=== PATIENT | female | born 1995 | race Caucasian/White ===

== ENCOUNTER → 2017-11-11 19:35 | Outpatient (CLI) | payer MEDICAID, SELFPAY ==
[2017-11-11 21:46] LABS: Chlamydia Trachomatis by PCR Negative (Negative); Neisserai gonorrhoeae by PCR Negative (Negative); Probe Check PASS; Sample Adequacy Control PASS; Specimen Processing Control PASS
== END ==
PROVIDERS: Family Provider Family Medicine; PCP Family Medicine; Visit Provider Nurse Practitioner Women's Health
DX: N89.8 Other specified noninflammatory disorders of vagina (principal)
CPT/HCPCS: 87070; 87205; 87491; 87591

== ENCOUNTER → 2017-12-15 17:39 | Outpatient (CLI) | payer MEDICAID, SELFPAY ==
[2017-12-15 19:18] LABS: Group B Strep DNA By PCR Negative (Negative); Internal Control PASS; Probe Check PASS; Specimen Processing Control PASS
== END ==
PROVIDERS: Family Provider Family Medicine; PCP Family Medicine; Visit Provider Nurse Practitioner Women's Health
DX: Z34.90 Encounter for supervision of normal pregnancy, unspecified, unspecified trimester (principal); N89.8 Other specified noninflammatory disorders of vagina
CPT/HCPCS: 87070; 87081; 87205; 87653

== ENCOUNTER 2017-12-23 18:50 | Outpatient (CLI) | payer MEDICAID, SELFPAY ==
[2017-12-23 19:49] VITALS: BMI 35.5
--- NOTE | 2017-12-26 13:58 | OB.TRI.NOTE ---
History of Present Illness Date of Service: 12/23/17 Was patient seen by the physician?: No Reason For Visit: R/O LABOR Date of Service: 12/23/17 Final MYRNA: 01/09/18 Gestational age: 38 Weeks and 0 Days History of Present Illness: contractions and pelvic pressure Home Medications Medication Instructions Recorded 1 tab PO QDAY 09/01/17 vitamin,calcium,advoibig-grbc-qsfde acid tablet famotidine 20 mg tablet 20 mg PO QDAY 10/07/17 Allergies Sulfa (Sulfonamide Antibiotics) Allergy (Verified 12/23/17 19:51) Hives NST - FHR Rate Baby A Baseline: 140 Variability:: Moderate Accelerations:: 15 x 15 Decelerations:: None NST Reactive:: Yes FHR Category:: Category I Uterine Activity:: q 3-5 Impression/Plan false labor reactive NST dc home labor precautions
== END 2017-12-23 21:00 | disposition home or self-care (01) ==
LOC: WPOUT 19:23 → WP 12-24 09:45
PROVIDERS: Family Provider Family Medicine; PCP Family Medicine; Visit Provider Obstetrics & Gynecology
DX: O47.1 False labor at or after 37 completed weeks of gestation (principal); Z3A.38 38 weeks gestation of pregnancy
CPT/HCPCS: 59025; 59050; 99218; G0378

== ENCOUNTER 2018-01-08 07:00 | Inpatient (IN) | payer MEDICAID, SELFPAY ==
[2018-01-08 07:27] VITALS: BMI 35.2
[2018-01-08] MEDS: Lactated Ringers 1,000 ML 50 ML IV ×3 (07:40→14:43)
[2018-01-08] MEDS: Oxytocin 30 units/NS 500 ml 30 UNITS/500 ML IV.SOLN IV (08:01)
[2018-01-08 08:37] LABS: Hematocrit 38.7 % (37-47); Mean Corp Hgb Conc 33.6 g/gl (32-36); Mean Corpuscular Hgb 30.2 pg (27.0-32.0); Platelet Count 219 K/mm3 (150-450); RBC Distribution Width SD 42.4 fl (35.1-43.9); Scan Indicated on CBC? Y/N NO; White Blood Count 10.3 K/mm3 (4.4-11.0)
[2018-01-08] MEDS: Ondansetron 4 MG/2 ML Vial IV (08:42)
--- NOTE | 2018-01-08 09:39 | NURSING ---
Patient plans to exclusively pump and feed baby breast milk through bottle.
[2018-01-08] MEDS: fentaNYL-bupivacaine (epidural) 100 ML BAG EPIDURAL ×2 (11:49→15:58)
[2018-01-08] MEDS: proMETHazine 25 MG/ML Syringe IV (14:43)
[2018-01-08] MEDS: Oxytocin 30 units/NS 500 ml 30 UNITS/500 ML IV.SOLN 334 UNITS IV (17:00)
--- NOTE | 2018-01-08 17:20 | HP.PCM_ITS ---
- Problem List (1) Supervision of normal Status: Acute Qualifiers: Comment: PRR MYRNA 01/09/18 boy LOUANN Seay kaden History Date of Admission: 01/08/18 Final MYRNA: 01/09/18 Gestational age: 39 Weeks and 6 Days History of this : 22 yo @ 39w6d presents for IOL maternal discomfort Pertinent Past Medical History: Past Medical History (Last Reviewed 01/04/18 @ 15:56 by Calli Ash) Anxiety (Acute) Depression (Acute) Mom's Labs & Results 01/08/18 01/08/18 07:45 07:45 WBC 10.3 RBC 4.30 Hgb 13.0 Hct 38.7 MCV 90.0 MCH 30.2 MCHC 33.6 RDW 13.0 RDW Differential 42.4 Plt Count 219 MPV 11.0 Blood Type B POSITIVE Antibody Screen NEGATIVE Course Did the patient receive Yes care? Labs Blood Type: B RH: POSITIVE RPR/VDRL/Syphilis Nonreactive Rubella status Immune HbSAg Negative Date Done: 08/03/17 Chlamydia Negative Gonorrhea Negative HIV/AIDS Non-Reactive Group B Strep: Negative Current Obstetrical History Gestational Diabetes Yes Incompetent Cervix No Infertility No IUGR No Macrosomia No Hypertension/Pre-eclampsia No Placenta Previa/Abruption No PTL/PROM No Uterine anomaly No Oligohydramnios No Polyhydramnios No Multiple gestation No Past Medical History Asthma No Diabetes No Hypertension No Heart disease No Mitral valve prolapse No Neurologic/Seizure disorder/ No Migraines Kidney disease No Liver disease No Varicosities No Clotting disorders/Hx of DVT No Thyroid Dysfunction No Other medical diseases No Psychiatric disorders Yes: anxiety, depression Major trauma No Abnormal PAP smear No Sleep apnea No Mammogram in the last 2 years No Social History Marital Status: SINGLE Alleged father Apolinar Hx Smoking Yes Smoking Status Light Smoker (<10/day) All Active Problems (Last Reviewed 01/04/18 @ 15:56 by Calli Ash) Supervision of normal (Acute) Allergies Sulfa (Sulfonamide Antibiotics) Allergy (Intermediate, Verified 01/08/18 08:10) Hives Current Medications Acetaminophen (Tylenol) 325 - 650 mg PO Q4H PRN PRN PRN Reason: PAIN OR FEVER >100.4F Al Hydroxide/Mg Hydroxide (Mylanta Ii) 15 - 30 ml PO Q4H PRN PRN PRN Reason: INDIGESTION Citric Acid/Sodium Citrate (Bicitra) 30 ml PO UD PRN Oxytocin/Sodium Chloride () 30 units in 500 mls @ 1 mls/hr IV .Q500H [facility] Last Admin: 01/08/18 08:01 Dose: 1 mls/hr Lactated Ringer's () 1,000 mls @ 50 mls/hr IV .Q20H [facility] Last Admin: 01/08/18 14:43 Dose: 50 mls/hr Naloxone HCl 4 mg/ Dextrose 504 mls @ 0 mls/hr IV PRN PRN; Protocol PRN Reason: TO MAINTAIN RR>10 Nalbuphine HCl (Nubain) 5 - 10 mg IV Q3H PRN PRN PRN Reason: PAIN (4-10/10) Nalbuphine HCl (Nubain) 5 mg IV Q3H PRN PRN Reason: ITCHING Stop: 01/09/18 12:05 Naloxone HCl (Narcan) 0.2 mg IV Q1M PRN PRN Reason: RR<10 AND PT UNRESPONSIVE Stop: 01/09/18 12:05 Ondansetron HCl (Zofran) 4 mg IV Q8H PRN PRN PRN Reason: NAUSEA Last Admin: 01/08/18 08:42 Dose: 4 mg Promethazine HCl (Phenergan) 6.25 - 12.5 mg IV Q4H PRN PRN; Protocol PRN Reason: IF NAUSEA PERSISTS Last Admin: 01/08/18 14:43 Dose: 6.25 mg Sodium Chloride () 5 - 15 ml IV UD [facility] Last Admin: 01/08/18 10:18 Dose: Not Given Smoking Status: Never smoker Alcohol: None Drug Use: none Number of Fetus(es): 1 - 120 moderate variabiity reactive no decels Review of Systems Constitutional: Denies: Chills, Fever, Weight Change HEENT: Denies: Head Aches, Sinus Congestion, Sinus Drainage Cardiovascular: Denies: Chest Pain, Palpitations Respiratory: Denies: Cough, Shortness of breath at rest, Sputum production Gastrointestinal: Denies: Abdominal Pain, Nausea, Vomiting Genitourinary: Denies: Dysuria Musculoskeletal: Denies: Joint Pain, Joint Tenderness Skin: Denies: Rash, Wounds Neurological: Denies: Numbness, Tingling, Focal weakness Psychiatric: Denies: Anxiety, Depression, Homicidal Ideations, Suicidal Ideations Hematologic/ Lymphatic: Denies: Easy Bruising, Easy Bleeding Physical Exam General: Alert Cardiovascular: Regular rate Lungs: Normal air movement Abdomen: Soft, Non Tender, Gravid Extremities:: No edema Estimated gestational size: Appropriate for gestational size Presentation: Cephalic Cervix Dilation (cm): 3 Assessment/Plan 22 yo @ 39w6d presents IOL maternal discomfort pitocin IOL. epidural.
[2018-01-08] MEDS: Oxytocin 30 units/NS 500 ml 30 UNITS/500 ML IV.SOLN 167 UNITS IV (17:30)
[2018-01-08 20:43] VITALS: BP 124/60; PULSE 99; RESP 16; TEMP 36.8; O2SAT 97
[2018-01-08] MEDS: Naproxen 250 MG Tablet PO (21:29)
--- NOTE | 2018-01-08 21:39 | NURSING ---
epidural cath d/c with blue tip intact. pt tolerated well
--- NOTE | 2018-01-08 22:45 | PCM.OB.VAG ---
- Problem List (1) Supervision of normal Status: Acute Qualifiers: Comment: PRR MYRNA 01/09/18 boy LOUANN Seay kaden Vaginal Delivery Maternal Presentation: Elective Induction 22 yo @ 39w6d presents IOL maternal discomfort Amniotic Membrane Rupture Type: Artificial Amniotic Fluid Description: Clear Final MYRNA: 01/09/18 Gestational age: 39 Weeks and 6 Days Date of Procedure: 01/08/18 Pre-Operative Diagnosis: iol Post-Operative Diagnosis: same Surgery/ Procedure Performed: Spontaneous Vaginal Delivery Type of Anesthesia: Epidural Description of Procedure: Patient began pushing and delivered the head in the SIXTO presentation. The head was delivered atraumatically. The anterior and posterior shoulders delivered without complication followed by the rest of the and the infant was placed on the maternal abdomen. Delayed cord clamping was employed for approximately 60 seconds. Cord was clamped and cut and gentle traction was applied to the cord and the placenta delivered spontaneously immediately following it was noted to be intact with three-vessel cord. The perineum and vagina were inspected and noted to have a small first degree laceration and repaired in the usual fashion with 3-0 vicryl rapide. EBL was 300 cc. Patient and infant tolerated delivery well. Presentation: SIXTO Placenta Disposition: [facility]
[2018-01-08 23:37] VITALS: BP 99/47; PULSE 72; RESP 16; TEMP 37.3; O2SAT 99
[2018-01-08] MEDS: Acetaminophen 500 MG Tablet 1000 MG PO (23:44)
[2018-01-08] MEDS: Cephalexin 500 MG Capsule PO (23:44)
[2018-01-09 04:42] VITALS: BP 122/75; PULSE 75; RESP 16; TEMP 36.7; O2SAT 98
[2018-01-09] MEDS: Cephalexin 500 MG Capsule PO ×3 (05:56→17:54)
[2018-01-09] MEDS: oxyCODONE 5 MG Tablet PO ×2 (05:57→17:54)
--- NOTE | 2018-01-09 06:07 | NURSING ---
As RN entered room mother resting in bed with baby resting on bed between her legs. mother gazing at baby and was tearful, fob sleeping on couch. RN provided emotional support to pt. medicated for uterine cramping and back pain. ice water refreshed, orange juice and snacks provided. pt denies needs at this time and stated she felt as she was tearful due to being uncomfortable. will continue to monitor
[2018-01-09 08:05] VITALS: BP 100/49; PULSE 83; RESP 18; TEMP 36.6; O2SAT 95
[2018-01-09] MEDS: Naproxen 250 MG Tablet PO (10:35)
[2018-01-09 13:00] VITALS: BP 119/64; PULSE 65; RESP 18; TEMP 36.6; O2SAT 100
[2018-01-09] MEDS: Senna/Docusate Sodium 1 Tablet PO (13:06)
--- NOTE | 2018-01-09 13:47 | PN.OBGYN_ITS ---
Subjective: doing well no complaints - Physical Exam General: Alert, Oriented x3 Vital Signs Temp Pulse Resp BP Pulse Ox 97.8 F 65 18 119/64 100 01/09/18 13:00 01/09/18 13:00 01/09/18 13:00 01/09/18 13:00 01/09/18 13:00 Oxygen Delivery Method Room Air Weight: 218 lb Body Mass Index (BMI) 35.2 Intake and Output for Last 24 Hours 01/07/18 01/08/18 01/09/18 23:59 23:59 23:59 Intake Total 3070 / 3070 Output Total 1102 / 1102 600 / 600 Balance 1967 / 1967 -600 / -600 Medical Necessity - Tobacco Use Smoking Status: Never smoker Assessment/Plan s/p routine care [facility]
--- NOTE | 2018-01-09 13:48 | DCINST_ITS ---
Discharge Diet: No Restrictions Discharge Activity: Return to Normal Activity, May not drive while taking narcotic pain medications., May Shower May resume sexual activity in: 4-6 weeks Call your doctor if your incision/area has: Continuous Slow Oozing, Sudden Increased Bleeding, Increased Pain/ Swelling, Increased Redness, Foul Smelling Discharge Additional Instructions: If you experience any of the following, contact your healthcare provider. * Bleeding that soaks a pad every hour for 2 hours * Fever 100.4 or higher * Unrelieved incision or abdominal pain * Swelling, redness, discharge or bleeding from your incision or episiotomy site * Your incision begins to separate * Problems urinating (including inability to urinate or burning while urinating) . * Visual changes * Severe headache * Flu-like symptoms * Pain or redness in one of both of your breasts * Pain, warmth, tenderness or swelling in your legs, especially the calf area * Frequent nausea and vomiting * Symptoms of depression or anxiety If you experience any of the following, call 911 or go to the nearest Emergency Room. * Chest pain * Problems breathing * Seizure activity * Partial or complete paralysis of a body part, slurred speech, weakness or drooping of the face, or a sudden inability to walk or hold your balance Allergies/Adverse Reactions: Allergies Sulfa (Sulfonamide Antibiotics) Allergy (Intermediate, Verified 01/08/18 08:10) Hives Medications to take at Discharge vitamin,calcium,dkijyxpz-jprk-krxph acid tablet 1 tab PO QDAY 09/01/17 famotidine 20 mg tablet 20 mg PO QDAY 10/07/17 cephalexin 500 mg capsule 500 mg PO .4 times per day cap 01/04/18 Naproxen [Naprosyn] 250 - 500 mg PO Q8H PRN PRN #30 tab 01/09/18 Oxycodone HCl/Acetaminophen [Percocet 5-325] 1 - 2 tablet PO Q4H PRN PRN 3 Days #15 tablet 01/09/18 The following prescriptions were given: Oxycodone HCl/Acetaminophen [Percocet 5-325] 1 - 2 tablet PO Q4H PRN PRN 3 Days #15 tablet PRN Reason: Pain Naproxen [Naprosyn] 250 - 500 mg PO Q8H PRN PRN #30 tab PRN Reason: MILD PAIN Please Follow Up With: Jessica Chen MD - [phone] When: Call to make an appointment with your doctor in 6 weeks. If you had elevated Blood pressure or 4th degree laceration you will need to be seen in 2 weeks. Primary Care Physician: Александр Cornejo III, MD [Primary Care Provider] -
--- NOTE | 2018-01-09 15:45 | CASEMGMT ---
Social Work - Labor and Delivery Unit Assessment completed. Refer to documentation below for further details. Date of Referral: 01/08/2018 Time of Referral: 1428 Referred By: Dr. Bellamy Reason for Referral: Mental Health: history of depression, depression, anxiety Date of Intervention: 01/09/2018 Time of Intervention: 1545 History obtained from: Mother of baby (MOB) Karlos Joe and medical record Household composition: MOB, reported father of baby (FOB) Apolinar Hair, and MOBs oldest child Ada Joe. MOB reports home situation is safe and adequate. Patient's parent/guardian status: MOB reports she and FOB have been together for 5 years, are currently engaged. MOB denies any form of abuse in relationship with FOB. , Daniel Hair, is the first child for MOB and FOB together. MOBs first child, Ada, as different father who has no involvement with Ada. FOB has one other child, 6 years old, whom FOB has no regular contact with. Medical History: MBO is G2, P1 to 2 after delivering Daniel. care reported to be adequate. Daniel was born weighing 9 pounds, at . Apgars 8 and 9 at 1 and 5 minutes of life. 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 MOB reports able to read and write, and to be able to understand what is read. 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 MOB will be taking a maternity leave, and unsure if will return to this job or find another job. FOB works at [employer]. Infant Supplies: MOB reports to have needed supplies including bassinet, car seat, clothing, diapers, wipes, breast pump, and crib. Childcare/Caregiver(s): MOB will be primary caregiver and will look for childcare when ready to return to work. Transportation: No reported issues. Programs/Agencies Involved: MOB reports to have food and medical through [facility]. Plans to enroll in childcare center administrator subsidy through [employer] when MOB returns to work. MOB reports to have WIC. Children Services/Legal Issues: MOB denies legal issues, and denies past or present involvement with children services. Behavioral Health Issues: MOB reports history of depression, anxiety, and depression. MOB denies any thoughts, plans, or intent for suicide. MOB reports does have a medication to use as needed for anxiety, and plans to remain on this in the period. MOB reports tried an antidepressant after Ada was born as well as tried counseling. MOB reports being with her dog, and smoking cigarettes helps MOB manage emotions and stress levels. MOB denies any illicit drug use history. MOB does smoke tobacco. No reports of any alcohol use during , or any dependence issues outside of . Family/Social Stressors: MOB reports some stress in that would not be engaged to FOB unless MOB gave FOB an ultimatum. MOB reports FOB is content with remaining together without getting , though this is something that MOB desires. MOB reports FOB has been more helpful with Miles as compared to after of Ada. MOB reports this is a positive. Support Systems: MOB reports FOB took a week off of work to help MOB with transition home with baby. MOB reports MOBs mother is 10 minutes away and able to help as needed. MOB reports FOB is the primary person MOB seeks emotional support from. Depression/Shaken Baby/Safe Sleeping: MOB reports was planned, and that MOB does feel a connection to this baby. MOB does admit that worries about transition home and adjusting to 2 children, worries about getting overwhelmed. MOB reports will ask for help however, and reports to have people can ask for help from. MOB able to give appropriate response on shaken baby and prevention of such. MOB able to give appropriate response on safe sleeping. ASSESSMENT: MOB cooperative, pleasant, and seeming non-defensive during social work visit. MOB held good eye contact, teary eyed at times. MOB was attentive to for the entirety of social work visit, was gentle and appropriate with baby, smiled at baby and looked at baby. MOB reports mood on a scale of 1-10 with 1 being the saddest and 10 the happiest, as a 7. MOB reports Anxiety is a 5 at this point. MOB listened to social work education on mood and anxiety disorders, risk factors present, and importance of seeking out help and support if symptoms increase or if MOB needs a break. MOB reports to feel ready to return home to get into a routine, see older child and also the family dog. MOB reports to have needed baby supplies, and that FOB has been helpful with the baby while in the hospital, as well as will be home for a week while MOB adjusts to having a . PLAN: MOB and infant to home. MOB provided with [facility] Resources assisting new parents, including counseling options, moms support group and Help Me Grow. depression packet given which includes tips on self-care, parenting with depression, and online supports. MOB accepted all resources given. No other services requested or indicated. -SHELTON Ryan, ROOF SERVICE TECHNICIAN
[2018-01-09 17:00] VITALS: BP 129/75; PULSE 85; RESP 18; TEMP 36.4; O2SAT 100
== END 2018-01-09 19:15 | disposition home or self-care (01) | DRG 373 ==
PROVIDERS: Admitting Provider Obstetrics & Gynecology; Family Provider Family Medicine; PCP Family Medicine; Visit Provider Obstetrics & Gynecology
DX: O70.0 First degree perineal laceration during delivery (principal); O99.334 Smoking (tobacco) complicating childbirth; O75.89 Other specified complications of labor and delivery; Z3A.39 39 weeks gestation of pregnancy; Z37.0 Single live birth
CPT/HCPCS: 59050; 85027; 86850; 86900; 99218; J7120; G0378; J2405

== ENCOUNTER → 2018-02-23 07:09 | Outpatient (CLI) | payer MEDICAID, SELFPAY ==
[2018-03-11 13:27] LABS: HPV Reflexed? NOT INDICATED
== END ==
PROVIDERS: Family Provider Family Medicine; PCP Family Medicine; Visit Provider Obstetrics & Gynecology
DX: Z12.4 Encounter for screening for malignant neoplasm of cervix (principal)
CPT/HCPCS: 88175; G0145

== ENCOUNTER 2018-06-01 14:01 | Emergency (ER) | payer MEDICAID, SELFPAY ==
[2018-06-01 14:02] VITALS: BP 113/78; PULSE 116; RESP 18; TEMP 36.6; O2SAT 98; BMI 30.7
[2018-06-01] MEDS: 0.9% Normal Saline 1,000 ML 999 ML IV (16:25)
[2018-06-01] MEDS: Metoclopramide 10 MG/2 ML Vial IV (16:25)
[2018-06-01] MEDS: Ketorolac 30 MG/ML Syringe IV (16:25)
[2018-06-01] MEDS: DiphenhydrAMINE 50 MG/ML Syringe 12.5 MG IV (16:25)
--- NOTE | 2018-06-01 17:14 | ED.VISSUMM ---
- ER Visit Summary Date of Service: 06/01/18 Chief Complaint: Earache, headache History of Present Illness: The patient is a 23 F with onset of migraine yesterday around 3 PM in the afternoon. She had 2 prior episodes of migraines. Pain is primarily to the right jewish area. She has mild nausea and light sensitivity. She did leave work early last night secondary to symptoms. She does complain of bilateral ear pain. She had mild URI symptoms. There has been no significant recent head trauma. Physical Examination: Vital signs significant for heart rate of 116, otherwise unremarkable. Patient is initially sitting in the carroll chair with sunglasses on. She is moved to a darkened room. Head neck examination is grossly unremarkable. TMs are clear bilaterally. She has no meningismus. Heart is regular rate and rhythm. Lung sounds are clear. Abdomen is soft nontender. Neuro exam is normal. Test Results: [] Emergency Department Course and Treatment: Patient was given IV fluids, Toradol, Reglan, Benadryl. On repeat examination symptoms are improved. She be given a work note for tonight. Treatment Plan: [] Disposition: Discharge Impression: Migraine, improved This note was generated with [employer] dictation software. It may contain incorrect words, spelling, and punctuation that were not noted in review of the chart prior to signing ED Disposition - Plan for ED Patient: Chief Complaint: Ear Problem Referrals: Александр Cornejo III, MD [Primary Care Provider] -
--- NOTE | 2018-06-01 17:17 | ED.DCSUM_ITS ---
- ER Visit Summary Date of Service: 06/01/18 Chief Complaint: Earache, headache History of Present Illness: The patient is a 23 F with onset of migraine yesterday around 3 PM in the afternoon. She had 2 prior episodes of migraines. Pain is primarily to the right tenriism area. She has mild nausea and light sensitivity. She did leave work early last night secondary to symptoms. She does complain of bilateral ear pain. She had mild URI symptoms. There has been no significant recent head trauma. Physical Examination: Vital signs significant for heart rate of 116, otherwise unremarkable. Patient is initially sitting in the carroll chair with sunglasses on. She is moved to a darkened room. Head neck examination is grossly unremarkable. TMs are clear bilaterally. She has no meningismus. Heart is regular rate and rhythm. Lung sounds are clear. Abdomen is soft nontender. Neuro exam is normal. Test Results: [] Emergency Department Course and Treatment: Patient was given IV fluids, Toradol , Reglan, Benadryl. On repeat examination symptoms are improved. She be given a work note for tonight. Treatment Plan: [] Disposition: Discharge Impression: Migraine, improved This note was generated with [employer] dictation software. It may contain incorrect words, spelling, and punctuation that were not noted in review of the chart prior to signing ED Disposition - Plan for ED Patient: Chief Complaint: Ear Problem Referrals: Александр Cornejo III, MD [Primary Care Provider] -
--- NOTE | 2018-06-01 17:17 | ED.DEP ---
ED Disposition - Plan for ED Patient: Disposition: Home or Assisted Living Chief Complaint: Ear Problem Instructions: ED Headache Migraine Referrals: Александр Cornejo III, MD [Primary Care Provider] - 1 Week
[2018-06-01 17:24] VITALS: BP 108/69; PULSE 76; RESP 14; O2SAT 99
== END 2018-06-01 17:27 | disposition home or self-care (01) ==
PROVIDERS: Emergency Provider Emergency Medicine; Family Provider Family Medicine; PCP Family Medicine
DX: G43.909 Migraine, unspecified, not intractable, without status migrainosus (principal)
CPT/HCPCS: 99283; J7030; A4216

== ENCOUNTER 2019-01-21 09:30 | Emergency (ER) | payer OTHER, MEDICAID, SELFPAY ==
[2018-10-19 12:02] VITALS: BMI 35.2
[2019-01-21 09:31] VITALS: BP 122/77; PULSE 126; RESP 14; TEMP 36.4; O2SAT 96; BMI 32.5
--- NOTE | 2019-01-21 09:55 | ED.VISSUMM ---
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 She felt a sudden pulling sensation in her low back when she did this. Pain does not radiate to her legs. She has no paresthesias or weakness. She does report having physical therapy previously for cervical and thoracic strains, but no prior problems with her lumbar area. Physical Examination: Vital signs significant for heart rate of 126, otherwise unremarkable. Patient sitting on the side of the bed. She appears uncomfortable but in no distress. Head neck examination is normal. Heart is regular rhythm but tachycardic. Lung sounds clear. Abdomen is soft nontender. Back examination reveals mild midline tenderness in the lumbar area. No midline tenderness in the thoracic spine. She does have moderate tenderness in the bilateral lumbar paraspinals. Straight leg raise in the seated position is negative. Neuro exam reveals normal strength and sensation in the lower extremities with strong distal pulses. She has 2+ bilateral patellar reflexes. Test Results: [] Emergency Department Course and Treatment: Patient be given a dose of naproxen here. She is driving herself home. She will be given prescription for naproxen, Flexeril, and 6 tabs of [place] for breakthrough pain. She is given work restrictions for the weekend. Treatment Plan: [] Disposition: Discharge Impression: Acute lumbar strain with paraspinal spasm This note was generated with [employer] dictation software. It may contain incorrect words, spelling, and punctuation that were not noted in review of the chart prior to signing ED Disposition - Plan for ED Patient: Disposition: Home or Assisted Living Instructions: ED Sprain Strain Lumbar Prescriptions: Hydrocodone Bitart/Apap 5-325 [[place] 5MG-325MG] 1 tablet PO Q6H PRN PRN 3 Days #6 tablet PRN Reason: Pain Naproxen [Naprosyn] 500 mg PO BID PRN PRN #20 tablet PRN Reason: Pain Cyclobenzaprine [Flexeril] 10 mg PO TID PRN #20 tablet PRN Reason: Muscle Spasm Referrals: [facility] [GROUP OF PHYSICIANS] - 2 Days
[2019-01-21] MEDS: Naproxen 500 MG Tablet PO (10:40)
== END 2019-01-21 10:46 | disposition home or self-care (01) ==
LOC: ED 10:11
PROVIDERS: Emergency Provider Emergency Medicine; Family Provider Family Medicine; PCP Family Medicine
DX: S39.012A Strain of muscle, fascia and tendon of lower back, initial encounter (principal); X50.9XXA Other and unspecified overexertion or strenuous movements or postures, initial encounter; Y93.H3 Activity, building and construction; Y92.230 Patient room in hospital as the place of occurrence of the external cause; Y99.0 Civilian activity done for income or pay; M62.830 Muscle spasm of back; K21.9 Gastro-esophageal reflux disease without esophagitis; Z72.0 Tobacco use
CPT/HCPCS: 99283

== ENCOUNTER → 2019-01-31 08:43 | Outpatient (CLI) | payer OTHER, SELFPAY ==
[2019-01-31 08:43] VITALS: BMI 32.5
--- NOTE | 2019-01-31 08:47 | RAD_ITS ---
STUDY: X-RAY - LUMBAR SPINE REASON FOR EXAM: Female, 24 years old. Back pain. TECHNIQUE: 3 view(s) of the lumbar spine were obtained. COMPARISON: None FINDINGS: Normal lumbar lordosis. There is no substantial scoliosis. There is a normal alignment of the vertebrae. Minimal spondylosis involves L4. There is minimal, sclerotic marginated anterior wedging of L2. The sclerotic margination suggests nonacute process. Alternatively this may represent an anatomic variant. Normal disc space heights. The posterior lungs within the field of view appear unremarkable. The bowel gas pattern is nonspecific. There is no evident gross free air. RAD/Lumbar Spine 2 or 3 Views IMPRESSION: No plain film evident acute osseous abnormality. Minimal, single level spondylosis. L2 vertebral body findings as above. Please see discussion. Recommendation: If there is a radiculopathy referable to the lumbar spine, consider evaluation with MRI. Electronically Signed: Zafar Story MD at 9:40 EDT , Service support ,
== END ==
PROVIDERS: Family Provider Family Medicine; PCP Family Medicine; Referring Provider Physician Assistant; Visit Provider Physician Assistant
DX: S39.012A Strain of muscle, fascia and tendon of lower back, initial encounter (principal); M62.830 Muscle spasm of back
CPT/HCPCS: 72100

== ENCOUNTER → 2019-02-24 16:55 | Outpatient (CLI) | payer OTHER, SELFPAY ==
[2019-02-14 08:34] VITALS: BMI 32.5
--- NOTE | 2019-02-24 17:06 | MRI_ITS ---
STUDY: MRI LUMBAR SPINE WITHOUT CONTRAST REASON FOR EXAM: Female, 24 years old. Low back pain after moving a bed 6 weeks ago TECHNIQUE: Standardized fat and water weighted pulse sequences were obtained in the sagittal and axial planes. COMPARISON: Radiographs 01/31/2019 FINDINGS: T12-L1: Normal endplates. Normal disc height, hydration and morphology. Normal bilateral facet joints. Normal central canal and bilateral lateral recesses. Normal bilateral intervertebral neural foramina. Normal lumbar lordosis. There is no substantial scoliosis. Normal conus medullaris that terminates at the L1 level. L1-2: Normal endplates. Normal disc height, hydration and morphology. Normal bilateral facet joints. Normal central canal and bilateral lateral recesses. Normal bilateral intervertebral neural foramina. L2-3: Normal endplates. Normal disc height, hydration and morphology. Normal bilateral facet joints. Normal central canal and bilateral lateral recesses. Normal bilateral intervertebral neural foramina. L3-4: Normal endplates. Normal disc height, hydration and morphology. Normal bilateral facet joints. Normal central canal and bilateral lateral recesses. Normal bilateral intervertebral neural foramina. L4-5: Normal endplates. Normal disc height, hydration and morphology. Normal bilateral facet joints. Normal central canal and bilateral lateral recesses. Normal bilateral intervertebral neural foramina. L5-S1: Disc desiccation. Central annular fissure with minimal central canal stenosis. Normal visualized sacral ala. Normal visualized paraspinous soft tissue structures. Incompletely imaged right ovary cyst measuring 3.8 x 3.0 cm. MRI/Spine Lumbar (Routine) IMPRESSION: Central annular fissure at the L5-S1 level with minimal central canal stenosis. No evidence of nerve root impingement. Incompletely imaged right ovary cyst measuring 3.8 x 3.0 cm. Electronically Signed: Eusebio Schwab MD at 18:33 EDT Tel , Service support ,
== END ==
PROVIDERS: Family Provider Family Medicine; PCP Family Medicine; Referring Provider Physician Assistant; Visit Provider Physician Assistant
DX: M54.5 Low back pain (principal)
CPT/HCPCS: 72148

== ENCOUNTER 2019-03-09 18:00 | Outpatient (RCR) | payer OTHER, SELFPAY ==
[2019-01-24 08:17] VITALS: BMI 32.5
[2019-01-31 08:43] VITALS: BMI 32.5
--- NOTE | 2019-02-02 14:59 | HP.PTEVAL ---
Patient's Visit Information MARTITA MOON is a 24 year old F referred to Physical Therapy by SHAHAB Tabor with a diagnosis of LB strain. Date of Evaluation: 02/02/19 Physical Therapist: Kwame Layne, SHYT, OCS, CSCS - Visit Plan Frequency: 3x /Week Duration: 4-6 Weeks Plan: 3x/week for 4-5 weeks for: 1. L/S AROM and mobs to increase ROM. 2. core and NS strength. 3. Monitor need for repetitive specific motion. 4. May do ES and MH or STM to help with pain. Posture adn body mechanincs - Subjective Findings: Hurt back at wrok on 01/21/19 trying to pull a bed adn it did not move. [place] pop in LB and burning sensation adn pain in LB adn to left side. Finished that room adn went to ER. Since then is really sore all the time with constant pain. Tight restrictions at work which is fine but has 5 adn 1 yo at home that needs mommy duty. Putting them in and out of car is tough. Overall about the same as a weeka go. On light duty at work sitting at computer adn doing paperwork Also stands at [employer]. Worse if sitting too long and curled up is worse also. Sleeping is horrible, needs tylenol an hour before bed adn needs heating pad. Tries to sleep on back as she cannot sleep on belly which is her normal position. No LBP prior to this incident. 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 - Objective Walks gingerly back to [facility] room, trasnitions slowly and with LB pain. - slump and - SLR. LB AROM ext 8 degrees and painful, SB 15 degreees and stretching, fexion 20 degrees adn hesitant. Pelvic movement adn spinal movement in general very poor. LE aROM WNL. reflexes 2/3 patella and achilles. Sensation LE WNL to gross light touch, L lateral leg slightly numb but this is normal for patient. Stregnth LE without mytomal abnormalities at 4/5. Trunk strength painful and not tested. Very tender to touch L/S paraspinal and upper gluts B L >R - Goals Goal 1:: Pt ahve ROM l/S WFL and without increased pain to tie shoes and transition normal Goal Time Frame: 4-6 Weeks Goal 2:: Pt sleep without waking at night due to pain Goal Time Frame: 4-6 Weeks Goal 3:: Pt ready to return to full duty at work without limitations. Goal Time Frame: 4-6 Weeks Goal 4:: I approp HEp to minimize future problems. Goal Time Frame: 4-6 Weeks Goal 5:: <10% disability on oswestry Goal Time Frame: 4-6 Weeks - Rehabilitation Potential Physical Therapy Diagnosis: LB strain vs disc derangement. Rehabilitation Potential: Fair - Anticipated Interventions Patient/Client Instruction: Educate patient on: Condition, Plan of Care For the Purpose of:: To decrease pain, To increase ROM, To improve muscle performance and motor function Therapeutic Exercise to Include: Strength training, Postural training, Flexibilty training, Passive ROM, Active ROM For the Purpose of:: To decrease pain, To increase tolerance to activity/condition/position, To improve ability of physical actions for home/community/work/leisure, To improve gait and locomotor functions Manual Therapy Techniques to Include: Mobilization, Soft tissue mobilization For the Purpose of:: To decrease pain, To increase ROM IF ES: Yes Thermo therapy (hot pack): Yes For the Purpose of:: To decrease pain Thank you for the opportunity to evaluate your patient. For Medicare and Medicare HMO plans, please review the plan of care and approve it. It will need to be FAXED BACK to us at [phone] for Medicare purposes. For Medicare only, by signing this I certify the plan of care. Please let me know if there are questions or concerns regarding this plan of care. Physician Signature: Date:
--- NOTE | 2019-05-12 10:54 | HP.PTDCNRP_ITS ---
HP - Discharge Summary (1) - Patient Information MARTITA MOON was seen in my office for initial evaluation on 02/02/19. The following Plan of Care was established for this patient: Initial Frequency: 3x /Week Initial Duration: 4-6 Weeks - Anticipated Interventions Patient/Client Instruction: Educate patient on: Condition, Plan of Care For the Purpose of:: To decrease pain, To increase ROM, To improve muscle pe rformance and motor function Therapeutic Exercise to Include: Strength training, Postural training, Flexibilty training, Passive ROM, Active ROM For the Purpose of:: To decrease pain, To increase tolerance to activity/condition/position, To improve ability of physical actions for home/community/work/leisure, To improve gait and locomotor functions Manual Therapy Techniques to Include: Mobilization, Soft tissue mobilization For the Purpose of:: To decrease pain, To increase ROM IF ES: Yes Thermo therapy (hot pack): Yes For the Purpose of:: To decrease pain This patient was last seen in our office 03/09/19. Pertinent comments regarding their Physical therapy will appear below: Pt seen 8 visits of POC and was not describing significant improvements. She was to return to work on March 14 and neglected to attend any visits after that point. It has been two months adn I will discontinue due to nonattendance At this point I will be discontinuing this patient from physical therapy. I would be happy to see this patient again in the future if found appropriate by the physician. Thank you! Kwame Layne, DPT, OCS, CSCS
== END 2019-03-09 19:00 | disposition home or self-care (01) ==
LOC: PT 18:00
PROVIDERS: Family Provider Family Medicine; PCP Family Medicine; Referring Provider Physician Assistant; Visit Provider Physician Assistant
DX: S39.012D Strain of muscle, fascia and tendon of lower back, subsequent encounter (principal); M62.838 Other muscle spasm
CPT/HCPCS: 97014; 97110; 97162; G0283

== ENCOUNTER 2019-07-29 09:08 | Emergency (ER) | payer MEDICAID, SELFPAY ==
[2019-03-28 15:56] VITALS: BMI 32.5
[2019-07-29 09:10] VITALS: BP 127/72; PULSE 112; RESP 16; TEMP 36.2; O2SAT 95; BMI 33.2
--- NOTE | 2019-07-29 09:15 | NURSING ---
NO OLD EKGS
--- NOTE | 2019-07-29 09:19 | EKG12_ITS ---
Test Reason : Blood Pressure : / mmHG Vent. Rate : 093 BPM Atrial Rate : 093 BPM P-R Int : 132 ms QRS Dur : 084 ms QT Int : 346 ms P-R-T Axes : 059 058 040 degrees QTc Int : 430 ms Normal sinus rhythm Low voltage QRS (Limb Leads) Confirmed by SARAHI COX, ANA ROSA ([id number]), development editor PANCHO EPPS ([id number]) on 08/01/2019 1:38:08 PM Referred By: OSWALD Confirmed By:ANA ROSA MCCLAIN MD
--- NOTE | 2019-07-29 09:27 | ED.VISSUMM ---
- ER Visit Summary Date of Service: 07/29/19 Chief Complaint: Chest discomfort History of Present Illness: The patient is a 24 F as male history of anxiety. Patient to hospital. She states today she had some chest discomfort also yesterday. Took some Naprosyn yesterday with improved her symptoms today has not helped much. She denies any nausea vomiting diarrhea. No fever or chills. No shortness of breath. No hemoptysis. No pleuritic chest pain. No history of DVT or PE. No family history of clotting disorder. No cardiac history. She denies any leg pain or swelling. No recent travel, surgery or immobilization. Physical Examination: Well-appearing young female vital signs are stable afebrile. Pulse ox 95% on room air no signs of hypoxia. HEENT exam unremarkable. Neck nontender no lymphadenopathy. Lungs clear to auscultation bilaterally. Heart regular rhythm no murmur rate about 100. Abdomen soft nontender normal bowel sounds no peritoneal signs. Chest wall she does have tenderness over around the sternal region and between the sternum and ribs consistent with costochondritis. There is no ecchymosis or bruising no subcu air crepitance. Patient moves all 4 extremities. Neurovascular intact. Calves nontender without edema or cords. Equal symmetrical radial pulses. Back nontender. Neurologic exam normal. Skin unremarkable. Test Results: EKG shows a sinus rhythm rate of 93 with no acute signs of AL or ischemia. No S1Q3T3. Emergency Department Course and Treatment: History and exam are consistent with costochondritis. Treatment Plan: Ice to her chest wall. Treat with Naprosyn or Motrin. Follow-up if not improving. Disposition: Discharge Impression: Acute chest wall pain secondary to costochondritis This note was generated with [employer] dictation software. It may contain incorrect words, spelling, and punctuation that were not noted in review of the chart prior to signing ED Disposition - Plan for ED Patient: Referrals: Александр Cornejo III, MD [Primary Care Provider] -
--- NOTE | 2019-07-29 09:30 | ED.DEP ---
ED Disposition - Plan for ED Patient: Disposition: Home or Assisted Living Instructions: CHEST WALL PAIN, Costochondritis Referrals: Александр Cornejo III, MD [Primary Care Provider] - 1 Week if not improving Additional Instructions: Ice to your chest wall. Treat the pain and inflammation in your chest wall with either Motrin or Naprosyn. Follow-up if not improving.
[2019-07-29 09:33] VITALS: BP 106/67; PULSE 100; RESP 16; O2SAT 98
== END 2019-07-29 09:35 | disposition home or self-care (01) ==
PROVIDERS: Emergency Provider Emergency Medicine; Family Provider Family Medicine; PCP Family Medicine
DX: M94.0 Chondrocostal junction syndrome [Tietze] (principal); F41.9 Anxiety disorder, unspecified; F17.200 Nicotine dependence, unspecified, uncomplicated
CPT/HCPCS: 93005; 99282

== ENCOUNTER 2019-12-16 10:04 | Emergency (ER) | payer MEDICAID, SELFPAY ==
[2019-12-16 10:05] VITALS: BP 134/79; PULSE 117; RESP 16; TEMP 36.7; O2SAT 97; BMI 30.9
[2019-12-16] MEDS: 0.9% Normal Saline 1,000 ML 1000 ML IV (10:27)
[2019-12-16] MEDS: proMETHazine 25 MG/ML Syringe 6.25 MG IV (10:27)
--- NOTE | 2019-12-16 10:30 | ED.VIS.GEN ---
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 She presents with slight nausea, diarrhea, and a sensation of fever but she does not have a fever. Slight myalgias. She feels that her heart is racing somewhat. No chest pain. 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 No rash anywhere. No cough or shortness of breath. No respiratory or chest symptoms. Current severity is mild. Past Medical History - Allergies and Home Meds Allergies/Adverse Reactions: Allergies Sulfa (Sulfonamide Antibiotics) Allergy (Intermediate, Verified 12/16/19 10:08) Hives ondansetron [From Zofran] Adverse Reaction (Verified 12/16/19 10:08) Nausea/Vom/Diarrhea Primary Care Physician: Александр Cornejo III, MD [Primary Care Provider] - Smoking Status: Current every day smoker Review of Systems All systems negative except as indicated General: Reports: Malaise. Denies: Chills, Fever, Sweats Eyes: Denies: Visual changes - bilaterally, Diplopia ENT: Denies: Rhinorrhea, Sore throat Cardiovascular: Denies: Chest pain, Palpitations Respiratory: Denies: Dyspnea, Cough, Dyspnea on exertion Gastrointestinal: Reports: Nausea, Diarrhea. Denies: Abdominal pain, Vomiting, Melena, Hematochezia Genitourinary: Denies: Dysuria, Hematuria, Frequency Musculoskeletal: Denies: Back pain, Extremity Pain Skin: Denies: Rash, Wounds Neurological: Denies: Headache, Weakness, Numbness Physical Exam Vital Signs/Narrative: Vital Signs Temp Pulse Resp BP Pulse Ox 12/16/19 10:05 98.1 F 117 H 16 134/79 H 97 Diagnostic/Tx/Re-eval - Medical Decision Making CMP is unremarkable. She did have 4 episodes of loose watery diarrhea while she was here. She has no abdominal pain at all. No tenderness. No chest pain or respiratory symptoms. No cough, or fever to suggest coronavirus. I explained that certainly this could be an early course and she should practice social distancing. She feels much better after IV fluids and her heart rate is 85 when I palpated. Flu swab is negative. She looks well and is comfortable going home with antiemetics. She will return here if she is worse or if there is any progression of her symptoms. She was discharged in stable condition. ED Disposition - Plan for ED Patient: Disposition: Home or Assisted Living Diagnosis: Diarrhea, Dehydration Instructions: VOMITING AND DIARRHEA, Nonspecific (Adult) Prescriptions: proMETHazine tablet [Phenergan] 25 mg PO Q6H PRN PRN #20 tablet PRN Reason: Nausea Referrals: Александр Cornejo III, MD [Primary Care Provider] -
[2019-12-16 10:46] LABS: Bacteria 0 SEEN /hpf (None Seen); Mucous, Urine 0 SEEN /hpf (<or=2+); Red Blood Cells-Urine 0 SEEN /hpf (0-5)
[2019-12-16 10:49] LABS: Color, Urine Yellow (Yellow); Glucose, Dipstick Normal (Normal); Ketone-Dipstick Negative (Negative); Leukocyte Esterase-Dipstick 100 /ul (Negative); Nitrite-Dipstick Negative (Negative); Occult Blood-Urine Negative /ul (Negative); Protein-Dipstick Negative (Negative); Specific Gravity, Urine 1.015 (1.002-1.030); Urine Bilirubin Dipstick Negative (Negative); Urine Clarity Sl. Cloudy (Clear); Urine Urobilinogen 1 mg/dl (Normal); Urine pH 6.5 (5.0 - 8.0)
[2019-12-16 10:54] LABS: ALB/GLOB Ratio 1.1 RATIO (0.9-2.4); AST(SGOT) 13 U/L (15-37); Alanine Aminotransfer ALT/SGPT 27 U/L (13-56); Alkaline Phosphatase 83 U/L (45-117); Anion Gap 8 (5-15); BUN 8 mg/dL (7-18); Calcium,Total 9.2 mg/dL (8.5-10.1); Chloride 104 mmol/L (98-107); EST Glomerular Filtration Rate 92 mL/min (>60); Est Glom Filt Rate - Afr Amer 111 mL/min (>60); Estimated Creatinine Clearance 99.76 ml/min; Globulin 3.6 g/dL (2.2-4.2); Glucose 93 mg/dL (74-106); Potassium 3.8 mmol/L (3.5-5.1); Protein, Total 7.6 g/dL (6.4-8.2); Sodium Level 138 mmol/L (136-145)
[2019-12-16 10:55] LABS: Squamous Epithelial Cells - UA 0-5 SEEN /hpf (5-10); White Blood Cells 10-25 SEEN /hpf (0-5)
[2019-12-16 11:45] VITALS: BP 117/62; PULSE 109; RESP 16; O2SAT 99
== END 2019-12-16 11:46 | disposition home or self-care (01) ==
PROVIDERS: Emergency Provider Emergency Medicine; PCP Family Medicine
DX: E86.0 Dehydration (principal); R19.7 Diarrhea, unspecified; F17.200 Nicotine dependence, unspecified, uncomplicated
CPT/HCPCS: 80053; 81001; 87804; 96361; 96374; 99283; J7030

== ENCOUNTER → 2020-01-19 07:25 | Outpatient (CLI) | payer MEDICAID, SELFPAY ==
[2020-01-19 07:47] LABS: Absolute Lymphocyte Count 3.18 X10^3/uL (0.83-4.51); Absolute Neutrophil Count 8.4 X10^3/uL (2.0-7.7); Basophil# 0.06 X10^3/uL; Basophil% 0.5 % (0-1); Eosinophil# 0.35 X10^3/uL; Eosinophils% 2.7 % (0-5); Hematocrit 41.6 % (37-47); Hemoglobin 13.6 g/dL (12.0-15.0); Lymphocyte # 3.18 X10^3/ul (4.0); Lymphocyte % 24.3 % (19-41); Mean Corp Hgb Conc 32.7 g/dL (32-36); Mean Corpuscular Hgb 29.6 pg (27.0-32.0); Mean Corpuscular Volume 90.4 fL (81-99); Mean Platelet Vol. 10.4 fl (6.2-12.0); Monocyte# 1.06 X10^3/uL; Monocyte% 8.1 % (0-10); NRBC Flagged by Analyzer 0 % (0-5); Neutrophil % 63.9 % (47-70); Platelet Count 258 K/mm3 (150-450); RBC Distribution Width CV 13.2 % (11.6-14.6); RBC Distribution Width SD 44.4 fl (35.1-43.9); White Blood Count 13.1 K/mm3 (4.4-11.0)
[2020-01-19 08:13] LABS: ALB/GLOB Ratio 1.2 RATIO (0.9-2.4); AST(SGOT) 15 U/L (15-37); Alanine Aminotransfer ALT/SGPT 27 U/L (13-56); Albumin, Serum 3.7 g/dL (3.2-5.0); Alkaline Phosphatase 73 U/L (45-117); Anion Gap 5 (5-15); BUN 13 mg/dL (7-18); BUN/Creat Ratio 19.9 RATIO (10-20); Calcium,Total 8.7 mg/dL (8.5-10.1); Chloride 107 mmol/L (98-107); Creatinine, Serum 0.65 mg/dL (0.55-1.02); EST Glomerular Filtration Rate 116 mL/min (>60); Est Glom Filt Rate - Afr Amer 140 mL/min (>60); Globulin 3.1 g/dL (2.2-4.2); Glucose 92 mg/dL (74-106); Potassium 3.8 mmol/L (3.5-5.1); Protein, Total 6.8 g/dL (6.4-8.2); Sodium Level 138 mmol/L (136-145)
== END ==
PROVIDERS: PCP Family Medicine; Referring Provider Nurse Practitioner Family; Visit Provider Nurse Practitioner Family
DX: F41.8 Other specified anxiety disorders (principal); R63.4 Abnormal weight loss
CPT/HCPCS: 36415; 80053; 84443; 85025

== ENCOUNTER → 2020-05-14 | Outpatient (CLI) | payer MEDICAID, SELFPAY ==
[2020-05-14 10:18] VITALS: BMI 30.9
[2020-05-14 11:12] LABS: Absolute Lymphocyte Count 2.44 X10^3/uL (0.83-4.51); Absolute Neutrophil Count 9.1 X10^3/uL (2.0-7.7); Basophil# 0.03 X10^3/uL; Basophil% 0.2 % (0-1); Eosinophil# 0.13 X10^3/uL; Hematocrit 40.6 % (37-47); Hemoglobin 13.2 g/dL (12.0-15.0); Lymphocyte # 2.44 X10^3/ul (4.0); Lymphocyte % 19.3 % (19-41); Mean Corp Hgb Conc 32.5 g/dL (32-36); Mean Corpuscular Hgb 29.1 pg (27.0-32.0); Mean Corpuscular Volume 89.4 fL (81-99); Mean Platelet Vol. 10.4 fl (6.2-12.0); Monocyte# 0.85 X10^3/uL; Monocyte% 6.7 % (0-10); NRBC Flagged by Analyzer 0 % (0-5); Neutrophil # 9.12 X10^3/uL (2.7-7.7); Neutrophil % 72.2 % (47-70); Platelet Count 282 K/mm3 (150-450); RBC Distribution Width CV 12.2 % (11.6-14.6); RBC Distribution Width SD 39.8 fl (35.1-43.9); Red Blood Count 4.54 M/mm3 (4.2-5.4); White Blood Count 12.6 K/mm3 (4.4-11.0)
[2020-05-14 11:24] LABS: Glucose Challenge Gest 1H 50g 125 mg/dL (70-140)
[2020-05-14 12:06] LABS: HIV - WCH Non-Reactive (Nonreactive); Hepatitis B Surface Antigen Non-Reactive (Nonreactive); Hepatitis C Antibody Non-Reactive (Nonreactive); Rubella IgG 61.6 IU/mL
[2020-05-14 18:31] LABS: Amphetamine Urine VISTA NEGATIVE (<1000 ng/mL); Barbiturate Urine VISTA NEGATIVE (< 200 ng/mL); Benzodiazepine Urine VISTA NEGATIVE (< 200 ng/mL); Cocaine Urine VISTA NEGATIVE (< 300 ng/mL); Ecstacy Urine VISTA NEGATIVE (< 500 ng/mL); Methadone Urine VISTA NEGATIVE (< 300 ng/mL); PCP Urine VISTA NEGATIVE (< 25 ng/mL); THC Urine VISTA NEGATIVE (< 50 ng/mL); Vista UDS pH Range 5
[2020-05-17 02:16] LABS: Rapid Plasmin Reagin (RPR) NONREACTIVE (NONREACTIVE)
[2020-05-17 03:06] LABS: Chlamydia By Nucleic Acid AMP Negative (Negative)
[2020-05-17 11:29] LABS: Gonococcus By Nucleic Acid AMP Negative (Negative)
== END | disposition home or self-care (01) ==
PROVIDERS: PCP Family Medicine; Referring Provider Obstetrics & Gynecology; Visit Provider Obstetrics & Gynecology
DX: Z34.90 Encounter for supervision of normal pregnancy, unspecified, unspecified trimester (principal)
CPT/HCPCS: 36415; 80307; 82950; 85025; 86592; 86703; 86762; 86803; 86850; 86900; 86901; 87086; 87340; 87491; 87591

== ENCOUNTER → 2020-06-13 | Outpatient (CLI) | payer MEDICAID, SELFPAY ==
[2020-06-13 11:43] VITALS: BMI 30.9
[2020-06-13 13:05] LABS: NATERA MAILED SPECIMEN
== END | disposition home or self-care (01) ==
PROVIDERS: PCP Family Medicine; Referring Provider Nurse Practitioner Women's Health; Visit Provider Nurse Practitioner Women's Health
DX: Z34.81 Encounter for supervision of other normal pregnancy, first trimester (principal)
CPT/HCPCS: 36415; 87086; 87088

== ENCOUNTER 2020-06-20 16:27 | Emergency (ER) | payer MEDICAID, SELFPAY ==
[2020-06-13 11:43] VITALS: BMI 30.9
[2020-06-20 16:28] VITALS: BP 125/72; PULSE 119; RESP 18; TEMP 36.7; O2SAT 98; BMI 32.6
--- NOTE | 2020-06-20 17:36 | ED.DCSUM_ITS ---
History of Present Illness Chief Complaint: Vag Bld, Preg Informant: Patient Pain: Pelvic Pain Onset: Yesterday Context: Gradual Onset Timing: Intermittent Quality: Cramping Issue: Vaginal bleeding. Negative for: Passing clots, Passing tissue Onset: Today Context: Gradual Onset Timing: Intermittent Current Severity: Spotting Maximum Severity: Spotting Associated Symptoms: Dysuria Test: Positive Sexually: Single Partner P: 2 Ab: 1 Narrative: Patient is a 25-year-old female presenting 12 weeks and 5 days with vaginal spotting and pelvic cramping. States it feels slightly worse than menstrual cramping. She not taken thing for pain. She notes he has a nausea but has had nausea her entire . She called her UTILITY SPECIALIST today, Dr. Doron Shay's office, but they were not able to get her and so she came to the ER. Chart view shows that patient's blood type is B+. Patient denies any other complaints at this time. Past Medical History - Allergies and Home Meds Allergies/Adverse Reactions: Allergies Sulfa (Sulfonamide Antibiotics) Allergy (Intermediate, Verified 06/20/20 16:30) Hives ondansetron [From Zofran] Adverse Reaction (Verified 06/20/20 16:30) Nausea/Vom/Diarrhea Primary Care Physician: Александр Cornejo III, MD [Primary Care Provider] - Prior records reviewed: Yes Past Medical History: None Surgical History: noncontributory Smoking Status: Current every day smoker Review of Systems General: Denies: Chills, Fever, Sweats Eyes: Denies: Visual changes - bilaterally, Diplopia ENT: Denies: Rhinorrhea, Sore throat Cardiovascular: Denies: Chest pain, Palpitations Respiratory: Denies: Dyspnea, Cough, Dyspnea on exertion Gastrointestinal: Reports: Abdominal pain, Nausea, Vomiting. Denies: Diarrhea, Melena, Hematochezia Genitourinary: Reports: - - Pelvic pain, spotting. Denies: Dysuria, Hematuria, Frequency Musculoskeletal: Denies: Back pain, Extremity Pain Skin: Denies: Rash, Wounds Neurological: Denies: Headache, Weakness, Numbness Physical Exam Vital Signs/Narrative: Vital Signs Temp Pulse Resp BP Pulse Ox 06/20/20 16:28 98.0 F 119 H 18 125/72 H 98 Inital Vital Signs reviewed: Yes General: Well nourished, Well developed Head: Normocephalic, Atraumatic Eyes: Perrl, EOMI ENT: Moist mucous membranes, No rhinorrhea Neck: Supple, Nontender Cardiovascular: Regular rate, Regular rhythm, No murmurs Respiratory: No distress, CTA bilaterally, Chest nontender Abdomen: Soft, Nondistended, Normal bowel sounds, Tender - Mild tenderness palpation of the right upper quadrant as well as the suprapubic region, -. Negative for: Guarding, Rebound tenderness Back: Nontender, Normal Inspection. Negative for: CVA tenderness Extremities: Nontender, No edema Skin: Normal color, No rash Neurological: Alert, Oriented x3, Cranial nerves II-XII grossly intact, Normal Strength, Normal Sensation Psychological: Normal affect Diagnostic/Tx/Re-eval Heart Tones: 150 - Medical Decision/Diagnostic Studies Patient is evaluated for vaginal bleeding and pelvic discomfort is 12 weeks . She is already had . Patient blood type is positive. Bedside ultrasound performed by myself shows a single intrauterine gestation with heart tones of 150. Urinalysis is not consistent with infection. It is sent for culture given the patient is . Patient states she can take Tylenol and Phenergan at home for her symptoms. I did discuss with OB on-call, , who is aware of findings and agreeable with outpatient follow-up. Patient does have some mild right upper quadrant pain on exam however she states this is chronic for the past 2 years and unchanged. She is not this to be evaluated further. Patient is counseled on signs and symptoms requiring return to the emergency room. Patient verbalizes agreement and understand this plan. Patient is counseled this to be treated as a possible miscarriage as she is still not viable. Patient discharged home in stable and improved condition. ED Disposition - Plan for ED Patient: Disposition: Home or Assisted Living Diagnosis: Threatened miscarriage, Pelvic pain affecting in second trimester, antepartum Instructions: ED Possible Miscarriage Threatened , ED Pelvic Pain Preg UKO 2 or 3 Tri Referrals: Александр Cornejo III, MD [Primary Care Provider] - Additional Instructions: Please call to follow-up with your UTILITY SPECIALIST in the next few days. Take Tylenol and nausea medicine as needed. Return the emergency room with any worsening symptoms. At this time the baby looks healthy and you do not have signs of UTI. Your urine was sent for culture and you will be contacted if you do require antibiotics.
[2020-06-20 17:50] LABS: Mucous, Urine 0 SEEN /hpf (<or=2+); Red Blood Cells-Urine 0 SEEN /hpf (0-5)
[2020-06-20 17:56] LABS: Color, Urine Yellow (Yellow); Glucose, Dipstick Normal (Normal); Ketone-Dipstick 5 mg/dl (Negative); Leukocyte Esterase-Dipstick 25 /ul (Negative); Nitrite-Dipstick Negative (Negative); Occult Blood-Urine Negative /ul (Negative); Protein-Dipstick Negative (Negative); Specific Gravity, Urine 1.025 (1.002-1.030); Urine Bilirubin Dipstick Negative (Negative); Urine Clarity Clear (Clear); Urine Urobilinogen Normal (Normal)
[2020-06-20 18:08] LABS: Bacteria RARE /hpf (None Seen); Squamous Epithelial Cells - UA 0-5 SEEN /hpf (5-10); White Blood Cells 0-5 SEEN /hpf (0-5)
== END 2020-06-20 18:32 | disposition home or self-care (01) ==
PROVIDERS: Emergency Provider Emergency Medicine; PCP Family Medicine
DX: O20.0 Threatened abortion (principal); O26.891 Other specified pregnancy related conditions, first trimester; R10.2 Pelvic and perineal pain; Z3A.12 12 weeks gestation of pregnancy; O99.331 Smoking (tobacco) complicating pregnancy, first trimester; F17.200 Nicotine dependence, unspecified, uncomplicated
CPT/HCPCS: 81001; 87086; 87088; 99282

== ENCOUNTER 2020-09-04 20:40 | Outpatient (CLI) | payer MEDICAID, SELFPAY ==
[2020-08-10 09:26] VITALS: BMI 31.9
[2020-09-04 20:54] VITALS: BMI 32.8
[2020-09-04 21:01] VITALS: BP 126/64; PULSE 88; TEMP 36.6; O2SAT 99
[2020-09-04] MEDS: Acetaminophen 500 MG Tablet 1000 MG PO (22:10)
[2020-09-04] MEDS: Lactated Ringers 1,000 ML 999 ML IV (22:10)
[2020-09-04] MEDS: Metoclopramide 10 MG/2 ML Vial IV (22:11)
[2020-09-04 22:24] LABS: Absolute Lymphocyte Count 2.76 X10^3/uL (0.83-4.51); Basophil# 0.03 X10^3/uL; Basophil% 0.2 % (0-1); Eosinophil# 0.19 X10^3/uL; Eosinophils% 1.3 % (0-5); Hemoglobin 12.2 g/dL (12.0-15.0); Lymphocyte # 2.76 X10^3/ul (4.0); Lymphocyte % 18.5 % (19-41); Mean Corp Hgb Conc 33.9 g/dL (32-36); Mean Corpuscular Hgb 31.5 pg (27.0-32.0); Mean Platelet Vol. 10.8 fl (6.2-12.0); Monocyte# 0.84 X10^3/uL; Monocyte% 5.6 % (0-10); NRBC Flagged by Analyzer 0 % (0-5); Neutrophil # 10.97 X10^3/uL (2.7-7.7); Neutrophil % 73.8 % (47-70); Platelet Count 254 K/mm3 (150-450); RBC Distribution Width CV 13.2 % (11.6-14.6); RBC Distribution Width SD 44.6 fl (35.1-43.9); Red Blood Count 3.87 M/mm3 (4.2-5.4); White Blood Count 14.9 K/mm3 (4.4-11.0)
[2020-09-04 22:43] LABS: Bacteria 0 SEEN /hpf (None Seen); Mucous, Urine 0 SEEN /hpf (<or=2+); Red Blood Cells-Urine 0 SEEN /hpf (0-5)
[2020-09-04 22:51] LABS: ALB/GLOB Ratio 0.8 RATIO (0.9-2.4); AST(SGOT) 9 U/L (15-37); Alanine Aminotransfer ALT/SGPT 17 U/L (13-56); Albumin, Serum 3.2 g/dL (3.2-5.0); Alkaline Phosphatase 85 U/L (45-117); Anion Gap 7 (5-15); BUN 6 mg/dL (7-18); BUN/Creat Ratio 14.3 RATIO (10-20); Calcium,Total 9.2 mg/dL (8.5-10.1); Chloride 107 mmol/L (98-107); Creatinine, Serum 0.42 mg/dL (0.55-1.02); EST Glomerular Filtration Rate 192 mL/min (>60); Est Glom Filt Rate - Afr Amer 232 mL/min (>60); Estimated Creatinine Clearance 188.35 ml/min; Glucose 73 mg/dL (74-106); Lipase 106 U/L (73-393); Potassium 3.4 mmol/L (3.5-5.1); Protein, Total 7.2 g/dL (6.4-8.2); Sodium Level 138 mmol/L (136-145)
[2020-09-04 22:55] LABS: Color, Urine Yellow (Yellow); Glucose, Dipstick Normal (Normal); Ketone-Dipstick 5 mg/dl (Negative); Leukocyte Esterase-Dipstick 25 /ul (Negative); Nitrite-Dipstick Negative (Negative); Occult Blood-Urine Negative /ul (Negative); Protein-Dipstick 15 mg/dl (Negative); Urine Clarity Sl. Cloudy (Clear); Urine Urobilinogen 1 mg/dl (Normal)
[2020-09-04 23:03] VITALS: BP 109/53; PULSE 71; TEMP 36.3
[2020-09-04 23:17] LABS: Urine Bilirubin Dipstick 1 mg/dL (Negative)
[2020-09-04 23:23] LABS: Amorphous Sediment 1+ URATE; Squamous Epithelial Cells - UA 0-5 SEEN /hpf (5-10); White Blood Cells 0-5 SEEN /hpf (0-5)
--- NOTE | 2020-09-06 07:48 | OB.TRI.PN ---
Progress Notes Date of Service: 09/04/20 Progress Note: patient seen for abdominal discomfort and diarrhea, IVFs and blood work done, urine culture sent. likely viral gastroenteritis, fu as scheduled Laboratory Studies: Laboratory Tests 09/04/20 09/04/20 09/04/20 Range/Units 22:35 22:05 22:05 WBC 14.9 H (4.4-11.0) K/mm3 RBC 3.87 L (4.2-5.4) M/mm3 Hgb 12.2 (12.0-15.0) g/dL Hct 36.0 L (37-47) % MCV 93.0 (81-99) fL MCH 31.5 (27.0-32.0) pg MCHC 33.9 (32-36) g/dL RDW Std Deviation 44.6 H (35.1-43.9) fl RDW Coeff of Polina 13.2 (11.6-14.6) % Plt Count 254 (150-450) K/mm3 MPV 10.8 (6.2-12.0) fl Immature Gran % (Auto) 0.600 (0.0-0.9) % Neut % (Auto) 73.8 H (47-70) % Lymph % (Auto) 18.5 L (19-41) % [place] % (Auto) 5.6 (0-10) % Eos % (Auto) 1.3 (0-5) % Baso % (Auto) 0.2 (0-1) % Absolute Neuts (auto) 11.0 H (2.0-7.7) X10^3/uL Absolute Lymphs (auto) 2.76 (0.83-4.51) X10^3/uL Nucleated RBC % 0 (0-5) % Sodium 138 (136-145) mmol/L Potassium 3.4 L (3.5-5.1) mmol/L Chloride 107 (98-107) mmol/L Carbon Dioxide 24.0 (21.0-32.0) mmol/L Anion Gap 7 (5-15) BUN 6 L (7-18) mg/dL Creatinine 0.42 L (0.55-1.02) mg/dL Estim Creat Clear Calc 188.35 ml/min Est GFR (MDRD) Af Amer 232 (>60) mL/min Est GFR (MDRD) Non-Af 192 (>60) mL/min BUN/Creatinine Ratio 14.3 (10-20) RATIO Glucose 73 L (74-106) mg/dL Calcium 9.2 (8.5-10.1) mg/dL Total Bilirubin 0.20 (0.20-1.00) mg/dL AST 9 L (15-37) U/L ALT 17 (13-56) U/L Alkaline Phosphatase 85 (45-117) U/L Total Protein 7.2 (6.4-8.2) g/dL Albumin 3.2 (3.2-5.0) g/dL Globulin 4.0 (2.2-4.2) g/dL Albumin/Globulin Ratio 0.8 L (0.9-2.4) RATIO Lipase 106 (73-393) U/L Urine Color Yellow (Yellow) Urine Clarity Sl. Cloudy (Clear) Urine pH 5.0 (5.0 - 8.0) Ur Specific [place] 1.030 (1.002-1.030) Urine Protein 15 H (Negative) mg/dl Urine Glucose (UA) Normal (Normal) mg/dl Urine Ketones 5 H (Negative) mg/dl Urine Occult Blood Negative (Negative) /ul Urine Nitrite Negative (Negative) Urine Bilirubin 1 H (Negative) mg/dL Urine Urobilinogen 1 H (Normal) mg/dl Ur Leukocyte Esterase 25 H (Negative) /ul Urine RBC 0 SEEN (0-5) /hpf Urine WBC 0-5 SEEN (0-5) /hpf Ur Squamous Epith Cells 0-5 SEEN (5-10) /hpf Amorphous Sediment 1+ URATE Urine Bacteria 0 SEEN (None Seen) /hpf Urine Mucus 0 SEEN (<or=2+) /hpf - Problem List (1) Gastroenteritis Status: Acute (2) Anxiety with depression Status: Acute Comment: zoloft, encouraged counseling (3) Influenza vaccination declined Status: Acute Comment: 06/03/2020 (4) Status: Acute Qualifiers: Comment: Need to recollect urine culture. carrier neg. , NIPT low risk, Boy, Lyam Daniel Retana. Anatomy nl (5) Supervision of normal Status: Acute Qualifiers: Comment: PRR MYRNA 12/28/20 Daniel Retana boyfriend Amrik Multi Select Codes - Urinary/Genital Urinary/Genital CPT Codes: No Charge - report visit
== END 2020-09-04 23:47 | disposition home or self-care (01) ==
LOC: WPOUT 20:53 → WP 20:54
PROVIDERS: PCP Family Medicine; Visit Provider Obstetrics & Gynecology
DX: O26.899 Other specified pregnancy related conditions, unspecified trimester (principal); R10.9 Unspecified abdominal pain; R19.7 Diarrhea, unspecified; Z3A.00 Weeks of gestation of pregnancy not specified
CPT/HCPCS: 96361; 96374; 36415; 59050; 80053; 81001; 83690; 85025; 87086; 87088; 94760; 99218; J7120; G0378

== ENCOUNTER → 2020-10-02 09:52 | Outpatient (CLI) | payer MEDICAID, SELFPAY ==
[2020-09-07 09:31] VITALS: BMI 32.3
[2020-10-02 10:14] LABS: Absolute Neutrophil Count 8.9 X10^3/uL (2.0-7.7); Basophil# 0.02 X10^3/uL; Basophil% 0.2 % (0-1); Eosinophil# 0.18 X10^3/uL; Eosinophils% 1.5 % (0-5); Hematocrit 35.4 % (37-47); Hemoglobin 11.6 g/dL (12.0-15.0); Lymphocyte % 19.5 % (19-41); Mean Corp Hgb Conc 32.8 g/dL (32-36); Mean Corpuscular Volume 91.5 fL (81-99); Monocyte# 0.72 X10^3/uL; Monocyte% 5.8 % (0-10); NRBC Flagged by Analyzer 0 % (0-5); Neutrophil # 8.86 X10^3/uL (2.7-7.7); Neutrophil % 71.9 % (47-70); Platelet Count 250 K/mm3 (150-450); RBC Distribution Width CV 12.8 % (11.6-14.6); RBC Distribution Width SD 42.2 fl (35.1-43.9); Red Blood Count 3.87 M/mm3 (4.2-5.4); White Blood Count 12.3 K/mm3 (4.4-11.0)
[2020-10-02 10:31] LABS: Glucose Challenge Gest 1H 50g 138 mg/dL (70-140)
== END ==
PROVIDERS: PCP Family Medicine; Referring Provider Obstetrics & Gynecology; Visit Provider Obstetrics & Gynecology
DX: Z34.90 Encounter for supervision of normal pregnancy, unspecified, unspecified trimester (principal)
CPT/HCPCS: 36415; 82950; 85025

== ENCOUNTER → 2020-10-05 10:01 | Outpatient (CLI) | payer MEDICAID, SELFPAY ==
[2020-10-04 10:42] VITALS: BMI 32.5
[2020-10-05 11:59] LABS: Glucose GTT-Gestation. Fasting 77 mg/dL (<105)
[2020-10-05 12:01] LABS: Glucose GTT-Gestational 1 Hr 121 mg/dL (<190)
[2020-10-05 13:00] LABS: Glucose GTT-Gestational 2 Hr 102 mg/dL (<165)
[2020-10-05 13:30] LABS: Glucose GTT-Gestational 3 Hr 61 L (<145)
== END ==
PROVIDERS: PCP Family Medicine; Referring Provider Obstetrics & Gynecology; Visit Provider Obstetrics & Gynecology
DX: Z13.1 Encounter for screening for diabetes mellitus (principal)
CPT/HCPCS: 36415; 82951; 82952

== ENCOUNTER → 2020-11-26 10:01 | Outpatient (CLI) | payer MEDICAID, SELFPAY ==
[2020-10-29 11:48] VITALS: BMI 33.1
[2020-11-12 11:23] VITALS: BMI 33.2
--- NOTE | 2020-11-26 10:03 | US_ITS ---
STUDY: SECOND AND THIRD TRIMESTER OBSTETRICAL ULTRASOUND - LIMITED REASON FOR EXAM: Female, 25 years old growth LMP: 03/23/2020. PRIOR ULTRASOUND: None. TECHNIQUE: Transabdominal TECHNICAL QUALITY: Adequate. FINDINGS: There is a single intrauterine fetus. The fetus is in a cephalic presentation. There is demonstrated cardiac activity with a heart rate of 136 bpm. There is a normal amniotic fluid volume. The largest amniotic fluid pocket measures 7.1 cm. The amniotic fluid index (JENIFER) is 12.8 cm. The placenta is anterior in location and is not low lying. There are Grade 1 placental changes. The cervix measures 3.4 cm in length. BIOMETRY: BPD: 3.76 cm: 35 weeks, 3 days HC: 32.14 cm: 36 weeks, 2 days AC: 31.66 cm: 35 weeks, 5 days FL: 6.88 cm: 35 weeks, 3 days Age by LMP: 35 weeks, 3 days. MYRNA by LMP: 12/28/2020. age by prior US: 35 weeks, 6 days. MYRNA by prior US: 12/26/2020. age by current US: 35 weeks, 3 days. MYRNA by current US: 12/28/2020. Estimated weight: 2711 grams, +/- 396 grams, 59 percentile. US/OB Limited With Biometrics IMPRESSION: Single live uterine gestation with a mean gestational age of 35 weeks and 6 days. The measurements obtained today fall within the normal expected range. Electronically Signed: Steve Yates MD at 12:52 EST , Service support ,
== END ==
PROVIDERS: PCP Family Medicine; Referring Provider Obstetrics & Gynecology; Visit Provider Obstetrics & Gynecology
DX: O09.299 Supervision of pregnancy with other poor reproductive or obstetric history, unspecified trimester (principal); Z3A.00 Weeks of gestation of pregnancy not specified
CPT/HCPCS: 76816

== ENCOUNTER → 2020-12-03 | Outpatient (CLI) | payer MEDICAID, SELFPAY ==
[2020-12-03 12:20] VITALS: BMI 33.4
== END | disposition home or self-care (01) ==
LOC: LABSPEC 16:32
PROVIDERS: PCP Family Medicine; Referring Provider Obstetrics & Gynecology; Visit Provider Obstetrics & Gynecology
DX: Z34.93 Encounter for supervision of normal pregnancy, unspecified, third trimester (principal); Z3A.36 36 weeks gestation of pregnancy
CPT/HCPCS: 87081

== ENCOUNTER 2020-12-20 00:23 | Inpatient (IN) | payer MEDICAID, SELFPAY ==
[2020-12-17 13:32] VITALS: BMI 33.5
[2020-12-20] VITALS (32 sets, daily range): BP systolic 110–151; BP diastolic 58–94; PULSE 69–96; RESP 16–18; TEMP 36.3–37.2; O2SAT 84–100; BMI 33.2
[2020-12-20] MEDS: Lactated Ringers 500 ML 999 ML IV (00:37)
[2020-12-20 00:52] LABS: Absolute Lymphocyte Count 3.83 X10^3/uL (0.83-4.51); Absolute Neutrophil Count 10.2 X10^3/uL (2.0-7.7); Basophil# 0.05 X10^3/uL; Basophil% 0.3 % (0-1); Eosinophils% 1.3 % (0-5); Hematocrit 37.8 % (37-47); Lymphocyte # 3.83 X10^3/ul (4.0); Lymphocyte % 24.9 % (19-41); Mean Corp Hgb Conc 34.4 g/dL (32-36); Mean Corpuscular Hgb 31.3 pg (27.0-32.0); Mean Corpuscular Volume 91.1 fL (81-99); Mean Platelet Vol. 10.5 fl (6.2-12.0); Monocyte# 0.97 X10^3/uL; Monocyte% 6.3 % (0-10); NRBC Flagged by Analyzer 0 % (0-5); Neutrophil # 10.23 X10^3/uL (2.7-7.7); Neutrophil % 66.7 % (47-70); Platelet Count 239 K/mm3 (150-450); RBC Distribution Width CV 13.1 % (11.6-14.6); RBC Distribution Width SD 43.2 fl (35.1-43.9); Red Blood Count 4.15 M/mm3 (4.2-5.4); White Blood Count 15.4 K/mm3 (4.4-11.0)
[2020-12-20 01:01] LABS: ROM Internal Control Test YES-OK TO RESULT pt. (Internal QC); ROM Patient Test POSITIVE (Negative)
[2020-12-20] MEDS: Lactated Ringers 1,000 ML 200 ML IV (01:08)
[2020-12-20] MEDS: Oxytocin 30 units/NS 500 ml 30 UNITS/500 ML IV.SOLN 334 UNITS IV (01:34)
--- NOTE | 2020-12-20 01:40 | HP.PCM_ITS ---
- Problem List (1) Active labor at term Status: Acute (2) 36 weeks gestation of Status: Acute Comment: electronic covid test ordered 11/30/20 (scheduled for 12/24/20 at 1330) (3) Abnormal glucose in , antepartum Status: Acute Comment: normal 3gtt (4) Anxiety with depression Status: Acute Comment: zoloft increased 10/16/20, encouraged counseling (5) History of tetanus, diphtheria, and acellular pertussis booster vaccination (Tdap) Status: Acute Comment: 10/04/20 (6) Influenza vaccination declined Status: Acute Comment: 06/03/2020 (7) Status: Acute Qualifiers: Comment: carrier neg. , NIPT low risk. afp declined. Anatomy nl; NL growth 11/26/20 (8) Supervision of normal Status: Acute Qualifiers: Comment: PRR MYRNA 12/28/20 boy Asuncion LOUANN Seay, Daniel boyfriend Amrik History and Physical Date of Admission: 12/20/20 Intake Vital Signs 12/17/20 Height 5 ft 6 in 12/17/20 Weight: 207 lb 8 oz 12/17/20 BMI 33.5 12/17/20 BP 138/70 H Intake Visit Reasons: 39WK OB Home Health Clinical Supervisor Required: No Is patient in pain?: No Allergies Sulfa (Sulfonamide Antibiotics) Allergy (Intermediate, Verified 12/17/20 13:32) Hives ondansetron [From Zofran] Adverse Reaction (Verified 12/17/20 13:32) Nausea/Vom/Diarrhea Medications Ferrous Sulfate 325 mg PO BID 09/04/20 [History Confirmed 12/17/20] Vit Calc,Iron,Folic [Kpn] 1 tab PO DAILY 09/04/20 [History Confirmed 12/17/20] promethazine 12.5 mg tablet 12.5 mg PO TID PRN #60 tab 10/16/20 [Rx Confirmed 12/17/20] sertraline 100 mg tablet 100 mg PO DAILY #90 tab 10/16/20 [Rx Confirmed 12/17/20] famotidine 20 mg tablet 20 mg PO DAILY #30 tab 11/26/20 [Rx Confirmed 12/17/20] hydroxyzine pamoate 50 mg capsule 50 mg PO TID-QID PRN #60 cap 11/26/20 [Rx Confirmed 12/17/20] Last Menstral Period: 03/05/20 Zika: Zika virus screening: Negative : No PFSH PFSH Medical History Anxiety (Acute) Depression (Acute) Fatigue (Acute) Knee pain (Acute) Ovarian cyst (Acute) Severe headache (Acute) Shoulder pain (Acute) neck/back pain (Acute) unexplained bruises (Acute) Family History Grandfather Cancer lymphoma Aunt Cancer Pancreatic, brain cancer Grandmother Diabetes Hyperlipidemia Kathryn disease Father Heart disease Status post double vessel coronary artery bypass Social History (Updated 12/17/20 @ 14:[address] 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 Date Name GA/Weeks Outcome Route Bth Weight Gen Labor Lgth Anesthesia Del [facility] Provider FOB 12/01/13 Geena 42 live - full term NS VD Female 01/08/18 MILES 40 live - full term NS VD Male epidural [facility]BIE HPI 39WK OB : Details: MARTITA MOON is a 25 year old who presents for routine OB visit. OB Visit MYRNA Calculator Estimated Delivery Date Method Current WG Current Estimate 12/28/20 Ultrasound #1 38w 3d Other Estimates 12/10/20 LMP (Certain) 41w 0d Expected Delivery Route/Plan Labor Preferences- CB/BF classes: no labor support person: Amrik labor intervention preferences: open to standard interventions pain management options preferred: epidural cut cord/dad catch: cord : yes PP control planned: NFP discussed possible routes of delivery and associated risks: [] special requests: [] Specific Issue/Plans flu vaccine: declines tdap vaccine: given rhogam: na LARC form signed: yes movement and labor precautions reviewed. Problem list reviewed and updated with the most current plan of care details and appropriate orders placed. Relevant counseling for the gestational age provided. Continue routine care and follow up unless otherwise noted in visit notes/problem list details Initial Weight: 203 lb Date EGA Weight BP Urine Prot Glucose FHR FuHt Pres Dilation Effaced St Visit Note 05/14/20 7w 3d 203 lb (+0 oz) 126/68 145 SM- CRL 1.23cm not cons with LMP. MYRNA changed 06/13/20 11w 5d 200 lb (-3 lb) 108/60 Negative Negative 167 MH-Had light spotting after intercourse >1 week ago. None since. Mild off and on cramping. Plans NIPT, carrier today. Wants [facility] US for anatomy 06/21/20 12w 6d 200 lb 4 oz (-2 lb 12 oz) 120/64 Negative Negative 160 GP - seen in ER last night for bleeding. Told had BASIA. No hematoma visible on US today. Some cramping, but has not tried tylenol. Return precautions reviewed. 07/09/20 15w 3d 200 lb (-3 lb) 118/62 Negative Negative 150 SM- no vb lof cramping increased irrtability and lability- recommend zoloft. 08/10/20 20w 0d 198 lb (-5 lb) 130/60 140 GP - no cramping or bleeding. +FM. Insurance did not cover iron previously - new script sent to pharmacy. Anatomy scan 08/1509/07/20 24w 0d 200 lb 6 oz (-2 lb 10 oz) 120/68 Negative Negative 155 GP - no cramping, LOF, VB, DFM. GCT next visit. Anatomy reviewed and normal. 10/04/20 27w 6d 201 lb 8 oz (-1 lb 8 oz) 110/68 Negative Negative 128 27 MH-No VB, LOF. Good FM. 3 hr GTT scheduled. Larc, tdap. 10/29/20 31w 3d 205 lb 4 oz (+2 lb 4 oz) 128/62 Negative Negative 140 31 GP - no LOF, VB, DFM, ctx. Last baby 9lbs - plan growth at 36 weeks. 11/12/20 33w 3d 206 lb (+3 lb) 134/76 Negative Negative 144 33 MH-No VB, LOF. Good FM. No Concerns. Growth US scheduled 11/26/20 35w 3d 207 lb (+4 lb) 120/72 Negative Negative 145 35 SM- no vb lof good fm irreuglar ctx. 12/03/20 36w 3d 207 lb 2 oz (+4 lb 2 oz) 138/78 Negative Negative 140 36 Cephalic 0 50 -3 GP - no LOF, VB, dFM, ctx . GBS done today. Recorded heart rate because want to have put in a [id number] 12/10/20 37w 3d 206 lb 6 oz (+3 lb 6 oz) 128/80 Negative Negative 140 36 Cephalic 2 50 -2 SM- no vb lof good fm no regular ctx 12/17/20 38w 3d 207 lb 8 oz (+4 lb 8 oz) 138/70 Negative Negative 120 38 Cephalic 3 50 -2 GP -no LOF, VB, DFM, ctx. Desires IOL if no spontaneous labor by next visit. GP -no LOF, VB, DFM, ctx. Desires IOL if no spontaneous labor by next visit. Membranes swept today. ACOG First Trimester First Trimester: Desire for , Alcohol, Tobacco Cessation, Illicit/Recreational Drug/Substance Use, Intimate Partner Violence, Barriers to care, Unstable Housing, Communication Barriers, Environmental/Work Hazards, A nticipated Course of Care, Toxoplasmosis Precations, Use of Any medications, Sexual activity, Exercise, Dental Care, Sauna/Hot tub use, Seat Belt use, Childbirth classes/Hospital facilities, Travel, Indications for US and Screening for Aneuploidy; discussed Second Trimester Second Trimester: Signs and Symptoms of Labor, Selecting a care provider, Reproductive Life Planning, Care Planning, Depression/Anxiety and Intimate Partner Violence; discussed Tobacco Cessation Third Trimester Third Trimester: Pain Management Plans, Labor support person(s), Immediate Larc, Circumcision preference, Movement Monitoring, Signs and Symptoms of Preeclampsia, Labor Signs, Tobacco Cessation, Depression and Intimate Partner Violence Diagnostics Diagnostics Diagnostics Gest Glucose Tolerance MG/DL 10/05/20 Glucose 1 Hr 50 gm 138 mg/dL (70-140) 10/02/20 Hgb 11.6 g/dL (12.0-15.0) L 10/02/20 Hct 35.4 % (37-47) L 10/02/20 Details: HIV: Urine Culture: Sequential Screen: NIPT Screen: ROS Const Reports system reviewed and no additional complaints, except as docu Eyes Reports system reviewed and no additional complaints, except as docu ENT Reports system reviewed and no additional complaints, except as docu Card Reports system reviewed and no additional complaints, except as docu Resp Reports system reviewed and no additional complaints, except as docu GI Reports system reviewed and no additional complaints, except as docu Reports system reviewed and no additional complaints, except as docu, Denies abnormal vaginal bleeding, Denies painful urination, Denies pelvic pain, Denies vaginal discharge, Denies vaginal odor, Denies vaginal itching Musc Reports system reviewed and no additional complaints, except as docu Skin/Breast Reports system reviewed and no additional complaints, except as docu Neuro Yes system reviewed and no additional complaints, except as docu Psych Reports system reviewed and no additional complaints, except as docu Endo Reports system reviewed and no additional complaints, except as docu Exam Const General: cooperative, healthy appearing, comfortable, no acute distress, well developed, well groomed Nutritional Appearance: average body habitus, well nourished Orientation: alert, awake, oriented x3 HENMT Head: normal to inspection, normocephalic, atraumatic Eyes Pupils: PERRL, accommodation normal Resp Effort & Inspection: normal respiratory effort, able to speak in complete sentences, symmetric chest movement Cardio Rate: regular rate GI Palpation: soft, no guarding, no masses, nontender Skin General: no rashes or lesions noted, elasticity normal, turgor normal Neuro General: alert, awake, oriented x3 Cranial Nerves: CN's II-XI intact bilaterally, sense of smell intact, PERRL, accommodation normal, EOM intact bilaterally Speech: speech normal Gait: normal gait Psych Appearance: grossly normal, well kempt Mental Status: mental status grossly normal Mood: congruent mood Affect: normal affect Speech and Movement: speech and movement normal Attitude: cooperative Thought Process: normal Thought Content: normal Judgment: judgment good Results POC Urinalysis 2 Dip (Clinic) Office Urine Glucose Negative Last Edit by Calli Ash on 12/17/20 13:41 Office Urine Protein Negative Last Edit by Calli Ash on 12/17/20 13:41 Assessment & Plan Problems 1. 36 weeks gestation of Z3A.36 electronic covid test ordered 11/30/20 (scheduled for 12/24/20 at 1330) 2. Abnormal glucose in , antepartum O99.810 normal 3gtt 3. History of tetanus, diphtheria, and acellular pertussis booster vaccination (Tdap) Z92.29 10/04/20 4. Influenza vaccination declined Z28.21 06/03/2020 5. Anxiety with depression F41.8 zoloft increased 10/16/20, encouraged counseling 6. 38 weeks gestation of Z3A.38 carrier neg. , NIPT low risk. afp declined. Anatomy nl; NL growth 11/26/20 7. Encounter for supervision of other normal in third trimester Z34.83 PRR MYRNA 12/28/20 Daniel Cummings boyfriend Amrik UPDATE- I have seen the patient and performed any clinically relevant updates to the history and physical exam. Essence Wesley MD
--- NOTE | 2020-12-20 01:41 | OP.PCM_ITS ---
Problem List (1) Active labor at term Status: Acute (2) 36 weeks gestation of Status: Acute Comment: electronic covid test ordered 11/30/20 (scheduled for 12/24/20 at 1330) (3) Abnormal glucose in , antepartum Status: Acute Comment: normal 3gtt (4) Anxiety with depression Status: Acute Comment: zoloft increased 10/16/20, encouraged counseling (5) History of tetanus, diphtheria, and acellular pertussis booster vaccination (Tdap) Status: Acute Comment: 10/04/20 (6) Influenza vaccination declined Status: Acute Comment: 06/03/2020 (7) Status: Acute Qualifiers: Comment: carrier neg. , NIPT low risk. afp declined. Anatomy nl; NL growth 11/26/20 (8) Supervision of normal Status: Acute Qualifiers: Comment: PRR MYRNA 12/28/20 Daniel Cummings boyfriend Amrik Vaginal Delivery Maternal Presentation: Active Labor 25-year-old at 38 weeks gestation admitted in active labor. Patient made rapid cervical change to complete dilation without augmentation. Amniotic Membrane Rupture Type: Spontaneous at home Amniotic Fluid Description: Bloody Final MYRNA: 12/28/20 Gestational age: 38 Weeks and 6 Days Date of Procedure: 12/20/20 Pre-Operative Diagnosis: Term , active labor Post-Operative Diagnosis: Same Surgery/ Procedure Performed: Spontaneous Vaginal Delivery Type of Anesthesia: None Description of Procedure: Patient began pushing and delivered the head in the LOP presentation. The head was delivered atraumatically and no nuchal cord was noted. The anterior and posterior shoulders delivered without complication followed by the rest of the infant and the infant was placed on the maternal abdomen. Delayed cord clamping was employed for approximately 60 seconds. Cord was clamped and cut and gentle traction was applied to the cord and the placenta delivered spontaneously immediately following it was noted to be intact with three-vessel cord. The perineum and vagina were inspected and no laceration was noted. EBL was 150 cc. Patient and tolerated delivery well. Presentation: Vertex, LOP Placental Delivery Description: Spontaneous Placenta Disposition: [facility] Cord Vessel Description: 3 Vessels Cord Entanglement: None Drain: Montero to straight drain (1 minute): 9 (5 minute): 9 Episiotomy Description: None Laceration: None Medications given after delivery: IV Pitocin Complications: None Multi Select Codes - Urinary/Genital Urinary/Genital CPT Codes: 73892 Vaginal Delivery+ Care([facility])
--- NOTE | 2020-12-20 01:46 | DCINST_ITS ---
Discharge Diet: No Restrictions Discharge Activity: Return to Normal Activity, May not drive while taking narcotic pain medications., May Shower May resume sexual activity in: 4-6 weeks Additional Activity Instructions:: Nothing in the vagina for 4-6 weeks. You may return to work/school in 6 weeks. Call your doctor if your incision/area has: Continuous Slow Oozing, Sudden Increased Bleeding, Increased Pain/ Swelling, Increased Redness, Foul Smelling Discharge Additional Instructions: If you experience any of the following, contact your healthcare provider. * Bleeding that soaks a pad every hour for 2 hours * Fever 100.4 or higher * Unrelieved incision or abdominal pain * Swelling, redness, discharge or bleeding from your incision or episiotomy site * Your incision begins to separate * Problems urinating (including inability to urinate or burning while urinating). * Visual changes * Severe headache * Flu-like symptoms * Pain or redness in one of both of your breasts * Pain, warmth, tenderness or swelling in your legs, especially the calf area * Frequent nausea and vomiting * Symptoms of depression or anxiety If you experience any of the following, call 911 or go to the nearest Emergency Room. * Chest pain * Problems breathing * Seizure activity * Partial or complete paralysis of a body part, slurred speech, weakness or drooping of the face, or a sudden inability to walk or hold your balance Allergies/Adverse Reactions: Allergies Sulfa (Sulfonamide Antibiotics) Allergy (Intermediate, Verified 12/20/20 00:40) Hives ondansetron [From Zofran] Adverse Reaction (Verified 12/20/20 00:40) Nausea/Vom/Diarrhea Medications to take at Discharge Ferrous Sulfate 325 mg PO BID 09/04/20 Vit Calc,Iron,Folic [Kpn] 1 tab PO DAILY 09/04/20 promethazine 12.5 mg tablet 12.5 mg PO TID PRN #60 tab 10/16/20 Famotidine 20 mg PO DAILY 12/20/20 Sertraline HCl [Zoloft] 100 mg PO DAILY 12/20/20 When: Call to make an appointment with your doctor in 6 weeks. If you had elevated Blood Pressure or 4th degree laceration you will need to be seen in 2 weeks. Primary Care Physician: Александр Cornejo III, MD [Primary Care Provider] - Test Results: Test results from this visit will be discussed in further detail at your follow-up appointment, if applicable.
[2020-12-20] MEDS: Naproxen 250 MG Tablet 500 MG PO ×2 (02:29→13:05)
--- NOTE | 2020-12-20 02:36 | NURSING ---
Single pump given to pt and pt began pumping. Pt verbalizes understanding after education provided.
[2020-12-20] MEDS: Sertraline 100 MG Tablet PO (09:13)
[2020-12-20] MEDS: Famotidine 20 MG Tablet PO (09:13)
[2020-12-20] MEDS: Acetaminophen 500 MG Tablet 1000 MG PO ×2 (09:18→19:50)
[2020-12-21 00:15] VITALS: BP 115/69; PULSE 76; RESP 18; TEMP 36.2
[2020-12-21] MEDS: Naproxen 250 MG Tablet 500 MG PO (03:34)
--- NOTE | 2020-12-21 09:03 | PN.OBGYN_ITS ---
Patient Problems: Active and Suspected Problems (Last Reviewed 12/20/20 @ 05:18 by Tsering Swan) Abnormal glucose in , antepartum (Acute) normal 3gtt History of tetanus, diphtheria, and acellular pertussis booster vaccination (Tdap) (Acute) 10/04/20 Anxiety with depression (Acute) zoloft increased 10/16/20, encouraged counseling Subjective: Patient doing well without complaints. Tolerating PO. Ambulating and voiding without difficulty. Bottle feeding well. Denies chest pain, shortness of breath, calf pain/swelling, fevers, chills, lightheadedness. - Physical Exam Vitals/I&O's: Vital Signs Temp Pulse Resp BP Pulse Ox 97.2 F L 76 18 115/69 99 12/21/20 00:15 12/21/20 00:15 12/21/20 00:15 12/21/20 00:15 12/20/20 02:29 Oxygen Delivery Method Room Air Weight: 205 lb 12.8 oz Body Mass Index (BMI) 33.2 Intake and Output for Last 24 Hours 12/19/20 12/20/20 12/21/20 23:59 23:59 23:59 Intake Total 1053.33 / 1053.33 Output Total 300 / 300 Balance 753.33 / 753.33 General: Alert, Oriented x3, Cooperative, No apparent distress, Well developed, Well nourished HEENT: Atraumatic, PERRLA, EOMI, Normocephalic Neck: Supple, No JVD Lungs: Normal air movement Cardiovascular: Regular rate Abdomen: Soft, Non Tender, Non-Distended, - - fundus firm Extremities: No edema, No Calf Tenderness Neurological: Cranial nerves II-XII grossly intact, Neuro grossly intact Psych/Mental Status: Normal Affect, Appropriate Current Medications Acetaminophen (Acetaminophen 500 Mg Tablet) 1,000 mg PO Q8H PRN PRN PRN Reason: Pain Score 1-3 Last Admin: 12/20/20 19:50 Dose: 1,000 mg Documented by: Bisacodyl (Bisacodyl 10 Mg Suppository) 10 mg RC UD PRN PRN Reason: If no BM Dibucaine (Dibucaine 30 Gm Tube) 1 applic TOPICAL TID PRN PRN; Protocol PRN Reason: Discomfort Famotidine (Famotidine 20 Mg Tablet) 20 mg PO DAILY BASIA Last Admin: 12/20/20 09:13 Dose: 20 mg Documented by: Hydrocortisone (Hydrocortisone 2.5% Crm) 1 applic TOPICAL TID PRN PRN; Protocol PRN Reason: Discomfort Methylergonovine Maleate (Methylergonovine 0.2 Mg/Ml Ampul) 0.2 mg IM X1 PRN PRN Reason: Excess bleeding/uterine atony Naproxen (Naproxen 250 Mg Tablet) 500 mg PO Q8H PRN PRN PRN Reason: Pain Score 1-3 Last Admin: 12/21/20 03:34 Dose: 500 mg Documented by: Ondansetron HCl (Ondansetron 4 Mg/2 Ml Vial) 4 mg IV Q4H PRN PRN PRN Reason: Nausea Oxycodone HCl (Oxycodone 5 Mg Tablet) 5 - 10 mg PO Q4H PRN PRN PRN Reason: Pain Score 4-10 Senna/Docusate Sodium (Senna/Docusate Sodium 1 Tablet) 1 - 2 tablet PO DAILY PRN PRN PRN Reason: Constipation Sertraline HCl (Sertraline 100 Mg Tablet) 100 mg PO DAILY [facility] Last Admin: 12/20/20 09:13 Dose: 100 mg Documented by: Simethicone (Simethicone 80 Mg Tablet) 80 mg PO PCHS PRN PRN Reason: Indigestion/Stomach pain Sodium Chloride (0.9% Saline Lock 10 Ml Syringe) 5 - 15 ml IV UD PRN PRN Reason: SALINE FLUSH Medical Necessity - Tobacco Use Smoking Status: Light Smoker (<10/day) Assessment/Plan All Active Problems (Last Reviewed 12/20/20 @ 05:18 by Tsering Swan) Abnormal glucose in , antepartum (Acute) History of tetanus, diphtheria, and acellular pertussis booster vaccination (Tdap) (Acute) Anxiety with depression (Acute) 36 weeks gestation of (Resolved) Active labor at term (Resolved) Influenza vaccination declined (Resolved) (Resolved) Supervision of normal (Resolved) Acute lumbar myofascial strain (Resolved) Gastroenteritis (Resolved) Gastroenteritis (Resolved) Lumbar paraspinal muscle spasm (Resolved) Right upper quadrant abdominal pain (Resolved) Supervision of normal (Resolved)
[2020-12-21] MEDS: Sertraline 100 MG Tablet PO (09:11)
[2020-12-21 09:15] VITALS: BP 116/69; PULSE 82; RESP 14; TEMP 36.4; O2SAT 97
[2020-12-21] MEDS: Famotidine 20 MG Tablet PO (10:34)
[2020-12-21 12:19] VITALS: BP 127/83; PULSE 99; RESP 14; TEMP 36; O2SAT 96
== END 2020-12-21 13:35 | disposition home or self-care (01) | DRG 560 ==
LOC: WPOUT 00:25 → WP 00:25
PROVIDERS: Admitting Provider Obstetrics & Gynecology; PCP Family Medicine; Visit Provider Obstetrics & Gynecology
DX: O99.334 Smoking (tobacco) complicating childbirth (principal); F17.200 Nicotine dependence, unspecified, uncomplicated; Z3A.38 38 weeks gestation of pregnancy; Z37.0 Single live birth
CPT/HCPCS: 59025; 59050; 84112; 85025; 86850; 86900; 86901; 99218; J7120; G0378

== ENCOUNTER → 2021-01-28 | Outpatient (CLI) | payer MEDICAID, SELFPAY ==
[2021-01-28 11:20] VITALS: BMI 30.9
[2021-01-30 16:39] LABS: HPV Reflexed? NOT INDICATED
== END | disposition home or self-care (01) ==
LOC: LABSPEC 13:08
PROVIDERS: PCP Family Medicine; Referring Provider Obstetrics & Gynecology; Visit Provider Obstetrics & Gynecology
DX: Z12.4 Encounter for screening for malignant neoplasm of cervix (principal)
CPT/HCPCS: 88175; G0145

== ENCOUNTER → 2021-02-14 | Outpatient (CLI) | payer MEDICAID, SELFPAY ==
--- NOTE | 2021-02-14 | IMM_PTH ---
PATIENT: MARTITA MOON LOC: [facility] U#:[id number] AGE/SX: 26/F ROOM: RE02/14/[address]: Dr. Essence Wesley MD : 1995 BED: DIS: 02/14/2021 SPEC #: [id number] RECD: 02/18/21 11:35 STATUS: MARIANO REQ #: [id number] LIAT: 02/14/21 00:[address]: Essence Wesley DEPT: IMMUNOHISTOCHEMISTRY RECD BY: Светлана Pearson ENTERED: 02/18/21 11:35 SP TYPE: IMMUNO OTHR DR: Dr. Александр Cornejo III, MD Tissues: B - Uterine cervix, NOS Procedures: p16 (initial) KI-67 (add) PHYSICIAN & INSTITUTION [place] [id number] SPECIMEN INFORMATION: Tissue Source: B ? Uterine cervix at 4 o?clock Clinical Info: MIHAELA Specimen Number: [id number] CPT code: 18580, 30871 METHODOLOGY: Deparaffinized sections of prefer/formalin-fixed tissue or PAP/DQ stained slides are incubated with monoclonal/polyclonal antibodies/oligonucleotide probes. Localization is made via biotin free immunoperoxidase method. Appropriate controls are performed and reacted as expected. Results on target cell population are indicated in the following table: RESULTS: ANTIBODY / CLONE RESULT Block B P16 (E6H4) negative Ki-67 (30-9) negative These tests were developed and their performance characteristics determined by [facility]. They may not have been cleared or approved by the U.S. Food and Drug Administration. The FDA has determined that such clearance or approval is not necessary. The above immunohistochemical/dualISH markers are ordered and reviewed by the Pathologist. INTERPRETATION: B. Uterine cervix at 4 o?clock, biopsy: No evidence of dysplasia. AM:tony 02/19/2021
[2021-02-14 11:12] VITALS: BMI 31.5
--- NOTE | 2021-02-14 11:30 | CER_PTH ---
PATIENT: MARTITA MOON LOC: [facility] U#:[id number] AGE/SX: 26/F ROOM: RE02/14/[address]: Dr. Essence Wesley MD : 1995 BED: DIS: 02/14/2021 SPEC #: [id number] RECD: 02/15/21 12:08 STATUS: MARIANO REMesfin #: [id number] LIAT: 02/14/21 11:[address]: Essence Wesley DEPT: SURGICAL PATHOLOGY RECD BY: Clarissa Langley ENTERED: 02/15/21 12:09 SP TYPE: CERV OTHR DR: Dr. Александр Cornejo III, MD Tissues: A - Endocervical B - Uterine cervix, NOS Procedures: Surgery Specimen Level IV HEADER OPERATION: Colposcopy PRE-OP DIAGNOSIS: LGSIL TISSUE SUBMITTED: A ? ECC, B ? 4 o?clock MICROSCOPIC DIAGNOSIS A. Endocervix, curettings: Superficial fragments of lower uterine endometrium with no pathologic change. Rare strips of benign superficial endocervix. No evidence of dysplasia. B. Cervix at 4 o?clock, biopsy: No evidence of dysplasia. Mild chronic inflammation. See comment. AM:tony 02/18/2021 COMMENT B. Results from immunohistochemistry ([id number]) for surrogate HPV marker (p16) will be reported separately. Case has been reviewed in consultation with Dr. Rodriguez who concurs with the above diagnosis. IDC:SJ MICROSCOPIC DESCRIPTION Slides are reviewed. GROSS DESCRIPTION A - Received in fixative is one container labeled with the patient's name and designated endocervix. The specimen consists of multiple minute fragments of light epstein soft tissue that in aggregate measure 1 x 0.2 x <0.1 cm. The specimen is totally submitted in one cassette. B - Received in fixative is one container labeled with the patient's name and designated 4 o'clock. The specimen consists of one irregular fragment of light epstein soft tissue that measures 0.6 x 0.3 x 0.1 cm. The specimen is totally submitted in one cassette. / AM:tony 02/15/21 TC:3 CPT: 00032 x2
== END | disposition home or self-care (01) ==
LOC: LABSPEC 16:19
PROVIDERS: PCP Family Medicine; Visit Provider Obstetrics & Gynecology
DX: R87.612 Low grade squamous intraepithelial lesion on cytologic smear of cervix (LGSIL) (principal)
CPT/HCPCS: 88305; 88341; 88342

== ENCOUNTER → 2021-04-10 14:52 | Outpatient (CLI) | payer MEDICAID, SELFPAY ==
[2021-02-14 11:12] VITALS: BMI 31.5
[2021-04-10 16:15] LABS: hCG Titer Quant., Serum 64 mIU/mL (1-3)
== END ==
PROVIDERS: PCP Family Medicine; Referring Provider Obstetrics & Gynecology; Visit Provider Obstetrics & Gynecology
DX: N91.2 Amenorrhea, unspecified (principal)
CPT/HCPCS: 36415; 84702

== ENCOUNTER → 2021-04-12 10:15 | Outpatient (CLI) | payer MEDICAID, SELFPAY ==
[2021-02-14 11:12] VITALS: BMI 31.5
[2021-04-12 10:59] LABS: hCG Titer Quant., Serum 144 mIU/mL (1-3)
== END ==
PROVIDERS: PCP Family Medicine; Referring Provider Obstetrics & Gynecology; Visit Provider Obstetrics & Gynecology
DX: N91.2 Amenorrhea, unspecified (principal)
CPT/HCPCS: 36415; 84702

== ENCOUNTER → 2021-04-22 13:30 | Outpatient (CLI) | payer MEDICAID, SELFPAY ==
[2021-02-14 11:12] VITALS: BMI 31.5
--- NOTE | 2021-04-22 13:32 | US_ITS ---
STUDY: FIRST TRIMESTER OBSTETRICAL ULTRASOUND REASON FOR EXAM: Female, 26 years old dating LMP: No LMP. TECHNIQUE: Transvaginal TECHNICAL QUALITY: Adequate. PRIOR ULTRASOUND: None. FINDINGS: There is visualization of a single gestational sac in a normal intrauterine position. The mean sac diameter (MSD) measures 1.28 cm, indicating an estimated gestational age (EGA) of 6 weeks, 0 days. The gestational sac shape is within normal limits. There is a visualized yolk sac. The yolk sac measures 2.5 mm. The placenta is non-visualized. There is no demonstrated embryo ( pole). The estimated gestation age (EGA) by US is 6 weeks, 0 days. The estimated date of delivery (MYRNA) by US is 12/16/2021. The uterus measures 10.2 cm x 7 cm x 5.2 cm. There is no demonstrated uterine fibroid. The cervix is closed. The right ovary measures 2.7 cm x 1.6 cm x 2.2 cm. There is no right ovarian cyst. There is no visualized right adnexal mass or complex lesion. The left ovary measures 3.4 cm x 2.2 cm x 2.2 cm. There is no left ovarian cyst. There is no visualized left adnexal mass or complex lesion. There is no fluid in the cul de sac. US/Transvaginal w/Preg US IMPRESSION: There is an intrauterine gestational sac with estimated age of 6 weeks. No pole is seen at this time. Electronically Signed: Steve Yates MD at 15:28 EDT , Service support ,
== END ==
PROVIDERS: PCP Family Medicine; Referring Provider Obstetrics & Gynecology; Visit Provider Obstetrics & Gynecology
DX: N91.1 Secondary amenorrhea (principal)
CPT/HCPCS: 76817

== ENCOUNTER → 2021-05-06 10:55 | Outpatient (CLI) | payer MEDICAID, SELFPAY ==
[2021-02-14 11:12] VITALS: BMI 31.5
--- NOTE | 2021-05-06 10:57 | US_ITS ---
STUDY: FIRST TRIMESTER OBSTETRICAL ULTRASOUND REASON FOR EXAM: Female, 26 years old . Viability. LMP: 03/11/2021 Recent childbirth. TECHNIQUE: TECHNICAL QUALITY: Adequate. PRIOR ULTRASOUND: Comparison is made with prior study dated 04/22/2021. FINDINGS: There is visualization of a single gestational sac in a normal intrauterine position. The mean sac diameter (MSD) measures 3 cm, indicating an estimated gestational age (EGA) of 8 weeks, 1 days. The gestational sac shape is within normal limits. There is a visualized yolk sac. The yolk sac measures 4 mm. The placenta is non-visualized. There is visualization of a live embryo. The crown-rump length (CRL) measures 1.3 cm, indicating an estimated gestational age (EGA) of 7 weeks, 4 days. There is demonstrated cardiac activity with a heart rate of 154 bpm. The estimated gestation age (EGA) by LMP is 8 weeks, 0 days. The estimated date of delivery (MYRNA) by LMP is 12/16/2021. The estimated gestation age (EGA) by US is 7 weeks, 6 days. The estimated date of delivery (MYRNA) by US is 12/17/2021. The uterus measures 10.9 cm x 8 cm x 6 cm. There is no demonstrated uterine fibroid. The cervix is closed. The right ovary measures 3.2 cm x 1.4 cm x 2 cm. There is no right ovarian cyst. There is no visualized right adnexal mass or complex lesion. The left ovary measures 3.2 cm x 2 cm x 2.2 cm. There is no left ovarian cyst. There is no visualized left adnexal mass or complex lesion. There is no fluid in the cul de sac. US/Transvaginal w/Preg US IMPRESSION: Single live intrauterine gestation with a mean gestational age of 7 weeks and 6 days. Electronically Signed: Steve Yates MD at 15:34 EDT , Service support ,
== END ==
PROVIDERS: PCP Family Medicine; Referring Provider Obstetrics & Gynecology; Visit Provider Obstetrics & Gynecology
DX: Z36.87 Encounter for antenatal screening for uncertain dates (principal)
CPT/HCPCS: 76817

== ENCOUNTER → 2021-05-30 | Outpatient (CLI) | payer MEDICAID, SELFPAY ==
[2021-05-30 15:43] LABS: Amphetamine Urine VISTA NEGATIVE (<1000 ng/mL); Barbiturate Urine VISTA NEGATIVE (< 200 ng/mL); Benzodiazepine Urine VISTA NEGATIVE (< 200 ng/mL); Cocaine Urine VISTA NEGATIVE (< 300 ng/mL); Ecstacy Urine VISTA NEGATIVE (< 500 ng/mL); Methadone Urine VISTA NEGATIVE (< 300 ng/mL); PCP Urine VISTA NEGATIVE (< 25 ng/mL); THC Urine VISTA NEGATIVE (< 50 ng/mL); Vista UDS pH Range 6
[2021-06-04 20:07] LABS: Chlamydia By Nucleic Acid AMP Negative (Negative)
[2021-06-04 23:16] LABS: Gonococcus By Nucleic Acid AMP Negative (Negative)
== END | disposition home or self-care (01) ==
PROVIDERS: PCP Family Medicine; Referring Provider Nurse Practitioner Women's Health; Visit Provider Nurse Practitioner Women's Health
DX: Z34.90 Encounter for supervision of normal pregnancy, unspecified, unspecified trimester (principal)
CPT/HCPCS: 80307; 87086; 87088; 87491; 87591

== ENCOUNTER → 2021-06-07 11:52 | Outpatient (CLI) | payer MEDICAID, SELFPAY ==
[2021-06-07 12:31] LABS: Absolute Lymphocyte Count 2.52 X10^3/uL (0.83-4.51); Basophil# 0.03 X10^3/uL; Basophil% 0.3 % (0-1); Eosinophil# 0.17 X10^3/uL; Eosinophils% 1.5 % (0-5); Hematocrit 36.6 % (37-47); Hemoglobin 12.2 g/dL (12.0-15.0); Lymphocyte # 2.52 X10^3/ul (0.83-4.51); Lymphocyte % 22.2 % (19-41); Mean Corp Hgb Conc 33.3 g/dL (32-36); Mean Corpuscular Hgb 29.8 pg (27.0-32.0); Mean Corpuscular Volume 89.3 fL (81-99); Mean Platelet Vol. 10.1 fl (6.2-12.0); Monocyte# 0.63 X10^3/uL; Monocyte% 5.5 % (0-10); NRBC Flagged by Analyzer 0 % (0-5); Neutrophil # 7.96 X10^3/uL (2.7-7.7); Platelet Count 265 K/mm3 (150-450); RBC Distribution Width CV 12.3 % (11.6-14.6); RBC Distribution Width SD 40.2 fl (35.1-43.9); White Blood Count 11.4 K/mm3 (4.4-11.0)
[2021-06-07 13:07] LABS: Glucose Challenge Gest 1H 50g 142 mg/dL (70-140)
[2021-06-07 13:12] LABS: NATERA MAILED SPECIMEN
[2021-06-07 14:30] LABS: HIV - WCH Non-Reactive (Nonreactive); Hepatitis B Surface Antigen Non-Reactive (Nonreactive); Hepatitis C Antibody Non-Reactive (Nonreactive); Rubella IgG Reactive (Nonreactive); Syphilis Antibodies Non-reactive
== END ==
PROVIDERS: Nurse Practitioner Women's Health; Visit Provider Obstetrics & Gynecology
DX: O99.210 Obesity complicating pregnancy, unspecified trimester (principal); Z31.430 Encounter of female for testing for genetic disease carrier status for procreative management; E66.9 Obesity, unspecified; Z3A.00 Weeks of gestation of pregnancy not specified
CPT/HCPCS: 36415; 82950; 85025; 86703; 86762; 86780; 86803; 86850; 86900; 86901; 87340

== ENCOUNTER → 2021-06-14 09:48 | Outpatient (CLI) | payer MEDICAID, SELFPAY ==
[2021-06-14 12:08] LABS: Glucose GTT-Gestation. Fasting 81 mg/dL (<105)
[2021-06-14 12:43] LABS: Glucose GTT-Gestational 1 Hr 182 mg/dL (<190)
== END ==
PROVIDERS: Referring Provider Nurse Practitioner Women's Health; Visit Provider Nurse Practitioner Women's Health
DX: Z13.1 Encounter for screening for diabetes mellitus (principal)
CPT/HCPCS: 36415; 82951; 82952

== ENCOUNTER → 2021-07-10 14:32 | Outpatient (CLI) | payer MEDICAID, SELFPAY ==
--- NOTE | 2021-07-10 14:34 | US_ITS ---
STUDY: SECOND AND THIRD TRIMESTER OBSTETRICAL ULTRASOUND - LIMITED REASON FOR EXAM: Female, 26 years old. Vaginal bleeding in . LMP: Unknown. PRIOR ULTRASOUND: 04/22/2021 and 05/06/2021. TECHNIQUE: Transabdominal TECHNICAL QUALITY: Adequate. FINDINGS: There is a single intrauterine fetus. The fetus is in a cephalic presentation. There is demonstrated cardiac activity with a heart rate of 160 bpm. There is a normal amniotic fluid volume. The largest amniotic fluid pocket measures 2.9 cm. . The placenta is posterior and low lying but not previa in location. The edge of the placenta measures 2.1 cm from the internal os. There are Grade 0 placental changes. The cervix measures 5.5 cm cm in length. BIOMETRY: BPD: 3.77 cm: 17 weeks, 3 days HC: 14.33 cm: 17 weeks, 4 days AC: 11.52 cm: 17 weeks, 2 days FL: 2.39 cm: 17 weeks, 1 days age by initial US: 17 weeks, 2 days. MYRNA by initial US: 12/16/2021. age by current US: 17 weeks, 2 days. MYRNA by current US: 12/16/2020. Estimated weight: 188 grams, +/- 28 grams, 7 percentile. Gender: Indeterminant IMPRESSION: 1. Live single intrauterine of 17 weeks, 2 days. MYRNA is 12/16/2021. This correlates with expected gestational age by initial ultrasound. 2. EFW of 188 g. 3. Adequate amniotic fluid. 4. Posterior low lying grade 0 placenta. 5. VERTEX presentation. 6. Long closed cervix. Electronically Signed: Andreas Neal DO at 16:22 EDT Tel [phone], Service support , STUDY: SECOND AND THIRD TRIMESTER OBSTETRICAL ULTRASOUND - LIMITED REASON FOR EXAM: Female, 26 years old. Vaginal bleeding in . LMP: Unknown. PRIOR ULTRASOUND: 04/22/2021 and 05/06/2021. TECHNIQUE: Transabdominal TECHNICAL QUALITY: Adequate. FINDINGS: There is a single intrauterine fetus. The fetus is in a cephalic presentation. There is demonstrated cardiac activity with a heart rate of 160 bpm. There is a normal amniotic fluid volume. The largest amniotic fluid pocket measures 2.9 cm. . The placenta is posterior and low lying but not previa in location. The edge of the placenta measures 2.1 cm from the internal os. There are Grade 0 placental changes. The cervix measures 5.5 cm cm in length. BIOMETRY: BPD: 3.77 cm: 17 weeks, 3 days HC: 14.33 cm: 17 weeks, 4 days AC: 11.52 cm: 17 weeks, 2 days FL: 2.39 cm: 17 weeks, 1 days age by initial US: 17 weeks, 2 days. MYRNA by initial US: 12/16/2021. age by current US: 17 weeks, 2 days. MYRNA by current US: 12/16/2020. Estimated weight: 188 grams, +/- 28 grams, 7 percentile. Gender: Indeterminant US/OB Limited With Biometrics IMPRESSION: 1. Live single intrauterine of 17 weeks, 2 days. MYRNA is 12/16/2021. This correlates with expected gestational age by initial ultrasound. 2. EFW of 188 g. 3. Adequate amniotic fluid. 4. Posterior low lying grade 0 placenta. 5. VERTEX presentation. 6. Long closed cervix. Electronically Signed: Andreas Neal DO at 16:22 EDT Tel [phone], Service support ,
== END ==
PROVIDERS: PCP Family Medicine; Referring Provider Obstetrics & Gynecology; Visit Provider Obstetrics & Gynecology
DX: O46.90 Antepartum hemorrhage, unspecified, unspecified trimester (principal); Z3A.00 Weeks of gestation of pregnancy not specified
CPT/HCPCS: 76816; 76817

== ENCOUNTER → 2021-08-26 14:29 | Outpatient (CLI) | payer MEDICAID, SELFPAY ==
[2021-08-26 14:53] LABS: Absolute Neutrophil Count 12.1 X10^3/uL (2.0-7.7); Basophil# 0.05 X10^3/uL; Basophil% 0.3 % (0-1); Eosinophil# 0.22 X10^3/uL; Eosinophils% 1.4 % (0-5); Hematocrit 34.5 % (37-47); Hemoglobin 11.8 g/dL (12.0-15.0); Lymphocyte % 17.4 % (19-41); Mean Corp Hgb Conc 34.2 g/dL (32-36); Mean Corpuscular Hgb 30.7 pg (27.0-32.0); Mean Corpuscular Volume 89.8 fL (81-99); Mean Platelet Vol. 10.1 fl (6.2-12.0); Monocyte# 0.84 X10^3/uL; Monocyte% 5.2 % (0-10); NRBC Flagged by Analyzer 0 % (0-5); Neutrophil # 12.06 X10^3/uL (2.7-7.7); Neutrophil % 74.8 % (47-70); Platelet Count 264 K/mm3 (150-450); RBC Distribution Width CV 13.1 % (11.6-14.6); RBC Distribution Width SD 43.4 fl (35.1-43.9); Red Blood Count 3.84 M/mm3 (4.2-5.4); White Blood Count 16.1 K/mm3 (4.4-11.0)
== END ==
PROVIDERS: PCP Family Medicine; Referring Provider Obstetrics & Gynecology; Visit Provider Obstetrics & Gynecology
DX: O99.810 Abnormal glucose complicating pregnancy (principal); Z36.9 Encounter for antenatal screening, unspecified; Z3A.00 Weeks of gestation of pregnancy not specified
CPT/HCPCS: 36415; 85025

== ENCOUNTER → 2021-09-26 13:26 | Outpatient (CLI) | payer MEDICAID, SELFPAY ==
--- NOTE | 2021-09-26 13:28 | US_ITS ---
STUDY: SECOND AND THIRD TRIMESTER OBSTETRICAL ULTRASOUND - LIMITED REASON FOR EXAM: Female, 26 years old. check placenta placement @ 28 weeks PRIOR ULTRASOUND: 07.10.21. TECHNIQUE: Transabdominal TECHNICAL QUALITY: Adequate. FINDINGS: There is a single intrauterine fetus. The fetus is in a cephalic presentation. There is demonstrated cardiac activity with a heart rate of 140 bpm. There is a normal amniotic fluid volume. The largest amniotic fluid pocket measures 8.3 cm. The placenta is posterior in location and is not low lying. There are Grade 1 placental changes. The cervix measures cm in length: 4.9. The placenta is 3cm from the cervix. BIOMETRY: BPD: 75 mm: 30 weeks, 0 days HC: 266 mm: 28 weeks, 6 days AC: 248 mm: 29 weeks, 0 days FL: 55 mm: 29 weeks, 0 days CI: 82 FL/AC: 22 FL/BPD: 74 HC/AC: 1.07 age by current US: 28 weeks, 6 days. MYRNA by current US: 3.18.22. Estimated weight: 1360 grams, +/- 204 grams, 82 %. age by prior US: 28 weeks, 3 days. MYRNA by prior US: 3.21.22. Age by LMP: 28 weeks, 0 days. MYRNA by LMP: 3.24.22. IMPRESSION: There is a single live intrauterine with a heart rate of 140 bpm. age by current US: 28 weeks, 6 days. MYRNA by current US: 3.18.22. Estimated weight: 1360 grams, +/- 204 grams, 82 %. EFW is greater than 75%. Large for gestational age (LGA) should be considered. The placenta is posterior in location and is not low lying. There are Grade 1 placental changes. The cervix measures cm in length: 4.9. The placenta is 3cm from the internal cervical os. Electronically Signed: Greyson Quinones MD at 14:54 EST , Service support , STUDY: SECOND AND THIRD TRIMESTER OBSTETRICAL ULTRASOUND - LIMITED REASON FOR EXAM: Female, 26 years old. check placenta placement @ 28 weeks PRIOR ULTRASOUND: 07.10.21. TECHNIQUE: Transvaginal TECHNICAL QUALITY: Adequate. FINDINGS: There is a single intrauterine fetus. The fetus is in a cephalic presentation. There is demonstrated cardiac activity with a heart rate of 140 bpm. There is a normal amniotic fluid volume. The largest amniotic fluid pocket measures 8.3 cm. The placenta is posterior in location and is not low lying. There are Grade 1 placental changes. The cervix measures cm in length: 4.9. The placenta is 3cm from the cervix. BIOMETRY: BPD: 75 mm: 30 weeks, 0 days HC: 266 mm: 28 weeks, 6 days AC: 248 mm: 29 weeks, 0 days FL: 55 mm: 29 weeks, 0 days CI: 82 FL/AC: 22 FL/BPD: 74 HC/AC: 1.07 age by current US: 28 weeks, 6 days. MYRNA by current US: 3.18.22. Estimated weight: 1360 grams, +/- 204 grams, 82 %. age by prior US: 28 weeks, 3 days. MYRNA by prior US: 3.21.22. Age by LMP: 28 weeks, 0 days. MYRNA by LMP: 3.24.22. US/OB Limited With Biometrics
== END ==
PROVIDERS: PCP Family Medicine; Visit Provider Nurse Practitioner Women's Health
DX: O44.42 Low lying placenta NOS or without hemorrhage, second trimester (principal); Z3A.00 Weeks of gestation of pregnancy not specified
CPT/HCPCS: 76816; 76817

== ENCOUNTER 2021-10-28 13:26 | Outpatient (CLI) | payer MEDICAID, SELFPAY ==
--- NOTE | 2021-10-28 13:28 | US_ITS ---
STUDY: SECOND AND THIRD TRIMESTER OBSTETRICAL ULTRASOUND REASON FOR EXAM: Female, 26 years old . growth. LMP: 03/14/2021 TECHNIQUE: Transabdominal TECHNICAL QUALITY: Adequate. PRIOR ULTRASOUND: Comparison is made with prior study dated 09/26/2021. FINDINGS: There is a single intrauterine fetus. The fetus is in a cephalic presentation. There is demonstrated cardiac activity with a heart rate of 1:30 bpm. There is a normal amniotic fluid volume. The largest amniotic fluid pocket measures 3.8 cm. The amniotic fluid index (JENIFER) is 10 cm. The placenta is posterior in location and is not low lying. There are Grade 1 placental changes. The cervix measures 3.6 cm in length. The adnexal regions are not visualized. BIOMETRY: BPD: 8.43 cm: 33 weeks, 6 days HC: 30.53 cm: 33 weeks, 6 days AC: 29.76 cm: 33 weeks, 5 days FL: 6.37 cm: 30 weeks, 6 days CI: 81% FL/BPD: 76% FL/HC: FL/AC: 21% HC/AC: 1.03 age by current US: 33 weeks, 2 days. MYRNA by current US: 12/14/2021. Estimated weight: 2244 grams, +/- 337 grams, 73 %. age by prior US: 33 weeks, 3 days. MYRNA by prior US: 12/13/2021. Age by LMP: 32 weeks, 4 days. MYRNA by LMP: 12/19/2021. US/OB Limited With Biometrics IMPRESSION: Single live intrauterine gestation with mean gestational age of 33 weeks and 3 days. The measurements obtained today fall within the normal expected range. Electronically Signed: Steve Yates MD at 15:35 EST ,
== END 2021-10-28 23:59 | disposition short-term general hospital (02) ==
LOC: US 13:27
PROVIDERS: PCP Family Medicine; Referring Provider Obstetrics & Gynecology; Visit Provider Obstetrics & Gynecology
DX: E66.9 Obesity, unspecified (principal)
CPT/HCPCS: 76816

== ENCOUNTER 2021-11-25 09:21 | Outpatient (CLI) | payer MEDICAID, SELFPAY | END 2021-11-25 23:59 | disposition home or self-care (01) | LOC: LABSPEC 11-26 09:22 | PROVIDERS: PCP Family Medicine; Visit Provider Nurse Practitioner Women's Health | DX: Z34.93 Encounter for supervision of normal pregnancy, unspecified, third trimester (principal); Z3A.34 34 weeks gestation of pregnancy | CPT/HCPCS: 87081 ==

== ENCOUNTER 2021-12-05 09:39 | Outpatient (CLI) | payer MEDICAID, SELFPAY ==
[2021-12-05 10:16] LABS: ROM Internal Control Test YES-OK TO RESULT pt. (Internal QC); ROM Patient Test Negative (Negative)
== END 2021-12-05 23:59 | disposition home or self-care (01) ==
LOC: LABSPEC 09:48
PROVIDERS: PCP Family Medicine; Visit Provider Obstetrics & Gynecology
DX: N89.8 Other specified noninflammatory disorders of vagina (principal)
CPT/HCPCS: 84112

== ENCOUNTER 2021-12-06 21:10 | Inpatient (IN) | payer MEDICAID, SELFPAY ==
[2021-12-06 20:28] VITALS: BP 115/59; PULSE 107; TEMP 35.9; O2SAT 97
[2021-12-06 20:30] VITALS: BMI 33.7
[2021-12-06 21:07] LABS: ROM Internal Control Test YES-OK TO RESULT pt. (Internal QC)
[2021-12-06 21:08] LABS: ROM Patient Test POSITIVE (Negative)
[2021-12-06] MEDS: 0.9% Saline Lock 10 ML Syringe IV (21:35)
--- NOTE | 2021-12-06 21:44 | HP.PCM.OB_ITS ---
HPI - General General Date of Admission: 12/06/21 HPI Narrative MARTITA MOON, is a 26 F who presents with clear spontaneous rupture membranes. Patient denies any regular contractions. She is still 3 cm dilated which she was earlier in the week Maternal Data Information MYRNA Calculator Estimated Delivery Date Method Current WG Current Estimate 12/19/21 Ultrasound #1 38w 1d [facility] Medical History (Updated 12/06/21 @ 21:[address] Jessica Chen MD) Anxiety Depression Fatigue Knee pain LGSIL (low grade squamous intraepithelial dysplasia) Low-lying placenta in second trimester neck/back pain Ovarian cyst Severe headache Short interval between pregnancies affecting , antepartum Shoulder pain Supervision of other normal unexplained bruises Home Medications prenat.vits,louie,dxj-cnkl-fuiqz 1 tab PO DAILY #30 tab 05/15/21 [Rx Last Taken 12/05/21 08:00] famotidine 20 mg tablet 20 mg PO BID #60 tab 07/01/21 [Rx Last Taken 12/05/21 08:00] citalopram 40 mg tablet 40 mg PO DAILY #30 tab 11/11/21 [Rx Last Taken 12/05/21 08:00] meclizine 25 mg tablet 25 mg PO .COMPLEX #60 tab 11/25/21 [Rx Last Taken 12/05/21 08:00] Allergy/AdvReac Type Severity Reaction Status Date / Time Sulfa (Sulfonamide Allergy Intermediate Hives Verified 12/06/21 20:50 Antibiotics) ondansetron [From Zofran] AdvReac Nausea/Vom/ Verified 12/06/21 20:50 Diarrhea Family History Grandfather Cancer lymphoma Aunt Cancer Pancreatic, brain cancer Grandmother Diabetes Hyperlipidemia Chrystal disease Father Heart disease Status post double vessel coronary artery bypass Social History household members: family number of children: 3 current occupational status: employed Smoking Status: Heavy Smoker (>10/day) alcohol intake: never substance use type: does not use caffeine: Yes what type of physical activity do you participate in: none frequency: 1-2 times per week seatbelt use: always do you feel safe at home: Yes additional social history: [employer] Patient works at [employer] below History 5 Elective abortions Hx Para 3 Spontaneous abortions 1 Hx # Term Pregnancies Ectopic pregnancies Hx # Pregnancies Multiple births # of living children 3 Past Pregnancies Del. Date Name GA/Weeks Outcome Route Bth Weight Gen Labor Lgth Anesthesia Del Locatn Provider FOB 12/01/13 Geena 42 live - full term 7lbs 6.5oz Female epidural 01/08/18 MILES 40 live - full term 9lbs Male epidur al [facility] ALEXA ABBIE 12/20/20 Lyam 38 live - full term 7lbs 3oz Male 1.5 hours none [facility] Maryjane Amrik Delivery Date: 12/01/13 No notes to display Delivery Date: 01/08/18 No notes to display Delivery Date: 12/20/20 admitted active labor Sarah Krishna Visit Details Expected Delivery Route/Plan Labor Preferences- CB/BF classes: no labor support person: Amrik labor intervention preferences: [] pain management options preferred: [] cut cord/dad catch: [] : [] PP control planned: [] discussed possible routes of delivery and associated risks: [] special requests: [] Plans Covid status: counseled regarding risk of covid in vs vaccination and declined vaccination Flu vaccine: declined Tdap vaccine: given Rhogam: NA LARC form signed: yes Problem list reviewed and updated with the most current plan of care details and appropriate orders placed. Relevant counseling for the gestational age provided. Continue routine care and follow up unless otherwise noted in visit notes/problem list details OB Flowsheet Initial Weight: 209 lb Date -?-?-?-?-?-?-?-?-?-?--?-?- EGA Weight BP Urine Prot -?-?-?-?-?-?-?-?-?-?-?-?- Glucose FHR FuHt Pres Dilation -?-?-?-?-?-?-?-?-?-?-?-?- Effaced St Visit Note 05/30/21 -?-?-?-?-?-?-?-?-?-?-?-?- 11w 0d 210 lb 6 oz (+1 lb 6 oz) 124/62 -?-?-?-?-?-?-?-?-?-?-?-?- 160 -?-?-?-?-?-?-?-?-?-?-?-?- MH:US per GP: CR L 48.4 and consistent with previous US MYRNA 07/01/21 -?-?-?-?-?-?-?-?-?-?--?-?- 15w 4d 210 lb 8 oz (+1 lb 8 oz) 130/80 Negative -?-?-?-?-?-?-?-?-?-?-?-?- Negative 155 -?-?-?-?-?-?-?-?-?-?-?-?- GP - no cramping or bleeding. Anatomy scan ordered. 1w BGTs reviewed. Pepcid prescribed for reflux 07/11/21 -?-?-?-?-?-?-?-?-?-?-?-?- 17w 0d 212 lb (+3 lb) 130/68 -?-?-?-?-?-?-?-?-?-?-?-?- 161 -?-?-?-?-?-?-?-?-?-?-?-?- Had small amount bleeding yesterday. US yesterday confirmed low lying placenta. Pelvic rest. 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 Megace helpful for nausea. Anatomy US 07/22 w/MFM -Had small amount bleeding yesterday. US yesterday confirmed low lying placenta. Pelvic rest. 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 Megace helpful for nausea. Anatomy US 07/22 w/MFM 07/29/21 -?-?-?-?-?-?-?-?-?-?-?-?- 19w 4d 212 lb 8 oz (+3 lb 8 oz) 116/66 Negative -?-?-?-?-?-?-?-?-?-?-?-?- Negative 159 -?-?-?-?-?-?-?-?-?-?-?-?- -NO VB, LOF. Reviewed anatomy scan-low lying placenta persists. Rpt US at 28 wk with [facility]. Report any bleeding, pelvic rest. Declines flu vaccine 08/26/21 -?-?-?-?-?-?-?-?-?-?-?-?- 23w 4d 217 lb (+8 lb) 136/60 Negative -?-?-?-?-?-?-?-?-?-?-?-?- Negative 150 23 -?-?-?-?-?-?-?-?-?-?-?-?- SM- no vb lof go od fm no regular ctx SM- no vb lof good fm no reg ular ctx, patient declines 1 hr gtt discussed risks and benefits, patient will check BS 4x daily x 1-2 weeks at 24-28 weeks. increase zolfot. 09/23/21 -?-?-?-?-?-?-?-?-?-?-?-?- 27w 4d 215 lb (+6 lb) 122/70 Negative -?-?-?-?-?-?-?-?-?-?-?-?- Negative 140 27 -?-?-?-?-?-?-?-?-?-?-?-?- SM- patient need s to check BS at home, cbc from july. discussed persistent depression despite zoloft, switch to celexa 10/16/21 -?-?-?-?-?-?-?-?-?-?-?-?- 30w 6d 214 lb 4 oz (+5 lb 4 oz) 128/66 Trace -?-?-?-?-?-?-?-?-?-?-?-?- Negative 135 32 -?-?-?-?-?-?-?-?--?-?-?-?- JV- celexa angel [facility] wants refill in [place]. 10/28/21 -?-?-?-?-?-?-?-?-?-?-?-?- 32w 4d 212 lb (+3 lb) 124/82 Negative -?-?-?-?-?-?-?-?-?-?-?-?- Negative 135 33 -?-?-?-?-?-?-?-?-?-?-?-?- SM- no vb lof go od fm no reuglar ctsx 11/11/21 -?-?-?-?-?-?-?-?-?-?-?-?- 34w 4d 215 lb (+6 lb) 136/80 Negative -?-?-?-?-?-?-?-?-?-?-?-?- Negative 140 34 -?-?-?-?-?-?-?-?-?-?-?-?- Sm- no vb lof go od fm no regular ctx 11/25/21 -?-?-?-?-?-?-?-?-?-?-?-?- 36w 4d 210 lb (+16 oz) 126/70 Negative -?-?-?-?-?-?-?-?-?-?-?-?- Negative 160 36 Cephalic 1 -?-?-?-?-?-?-?-?-?-?-?-?- 20 -4 -No Vb, LOF. Good FM. More anxiety at night, can't sleep. Will try Meclizine 50mg HS as already using this. GBS done 12/02/21 -?-?-?-?-?-?-?-?-?-?-?-?- 37w 4d 209 lb (+0 oz) 120/80 Negative -?-?-?-?-?-?-?-?-?-?-?-?- Negative 140 37 Cephalic 3 -?-?-?-?-?-?-?-?-?-?-?-?- 60 -2 SM- no vb lof good fm no regular ctx 12/05/21 -?-?-?-?-?-?-?-?-?-?-?-?- 38w 0d 208 lb 8 oz (-8 oz) 110/70 Negative -?-?-?-?-?-?-?-?-?-?-?-?- Negative 134 38 Cephalic 3 -?-?-?-?-?-?-?-?-?-?-?-?- 60 -2 JV- no cer vical change but c/o mucous discharge. Rom+ collected. 12/06/21 -?-?-?-?-?-?-?-?-?-?-?-?- 38w 1d 209 lb (+0 oz) 115/59 -?-?-?-?-?-?-?-?-?-?-?-?- -?-?-?-?-?-?-?-?-?-?-?-?- NST FHR Rate Baby A Baseline: 130 Variability:: Moderate Accelerations:: 15 x 15 Decelerations:: None NST Reactive:: Yes FHR Category:: Category I Uterine Activity:: irregular ROS Constitutional Constitutional: Reports systems reviewed and no addt'l complaints, except as documented Eyes Eyes: Denies change in vision ENT HEENT: Reports systems reviewed and no addt'l complaints, except as documented; Denies headache(s) Cardiovascular Cardiovascular: Reports systems reviewed and no addt'l complaints, except as documented; Denies chest pain or dyspnea Respiratory/Chest Respiratory/Chest: Reports systems reviewed and no addt'l complaints, except as documented Gastrointestinal Gastrointestinal: Reports systems reviewed and no addt'l complaints, except as documented; Denies abdominal pain Genitourinary Genitourinary: Reports systems reviewed and no addt'l complaints, except as documented, contractions Details: present (irregular) and movement Details: present; Denies dysuria or genital lesions Musculoskeletal Musculoskeletal: Reports systems reviewed and no addt'l complaints, except as documented Neurologic Neurologic: Reports systems reviewed and no addt'l complaints, except as documented Endocrine Endocrinology: Reports systems reviewed and no addt'l complaints, except as documented Vital Signs Vital Signs Vital Signs: 12/06/21 20:28 Pulse Rate 107 H Blood Pressure 115/59 L BP Systolic 115 BP Diastolic 59 Pulse Ox 97 Weight Weight: 209 lb Body Mass Index (BMI) 33.7 Physical Exam Const alert, oriented x3, no apparent distress and healthy appearing HEENT normocephalic and moist oral mucous membranes Head and Scalp: atraumatic Neck full ROM, no lymphadenopathy, supple and thyroid normal General: trachea midline Lymph Lymphatic: no lymphadenopathy noted Chest inspection of chest normal Resp normal respiratory effort Cardio regular rate GI normal to inspection, nondistended, normoactive bowel sounds, soft to palpation and non-tender Inspection: gravid external exam normal Manual OB Exam: estimated gestational size appropriate, presentation cephalic, dilated, effaced and station Extremity normal to inspection General Extremity: Negative for edema Skin no rashes or lesions noted Neuro no focal motor deficits and deep tendon reflexes 2+ bilaterally Motor Exam: strength 5/5 throughout and clonus absent Psych mental status grossly normal Labs Labs Labs: Blood Type B POSITIVE Antibody Screen NEGATIVE Hct 34.5 % (37-47) L Hgb 11.8 g/dL (12.0-15.0) L Obstetrics US Syphilis Total Ab Non-reactive VZV IgG Antibody 613 index (Immune >165) Rubella IgG Antibody Reactive (Nonreactive) Hep Bs Antigen Non-Reactive (Nonreactive) Neisseria gonorrhoeae DNA (CONOR) Negative (Negative) HIV 1&2 Antibody Non-Reactive (Nonreactive) C.trachomatis DNA (PCR) Negative (Negative) Glucose 1 Hr 50 gm 142 mg/dL (70-140) H Group B Strep DNA Negative (Negative) Rhogam given: No Miscellaneous Test Assessment & Plan (1) Back pain affecting : COMMENT: refer Dossi (2) Abnormal glucose affecting : COMMENT: needs 3gtt, could not complete 3 hr. Ordered testing supplies. 1 wk BG readings WNL; will repeat BG readings qid X 1 week at 28 wk, 3 days of readings nl. (3) Obesity (BMI 30.0-34.9): COMMENT: GCT at NOB (4) Supervision of other normal : COMMENT: PRR MYRNA: 12/19/21 girl PC: Daniel Seay Lyam BF:Amrik (5) Short interval between pregnancies affecting , antepartum: COMMENT: delivered 11/2020 (6) : QUALIFIERS: Weeks of gestation: 38 weeks Qualified Code(s): Z3A.38 - 38 weeks gestation of COMMENT: declines carrier, NIPT low risk. neg afp. anatomy reviewed. GBS neg (7) LGSIL (low grade squamous intraepithelial dysplasia): COMMENT: no dysplasia on colposcopy. repeat pap postpartem (8) Anxiety with depression: COMMENT: counseling encouraged. failed zoloft. switch to celexa. (9) SROM (spontaneous rupture of membranes): COMMENT: plan pit PRN, epi PRN
[2021-12-06 22:04] LABS: Absolute Lymphocyte Count 3.47 X10^3/uL (0.83-4.51); Absolute Neutrophil Count 10.9 X10^3/uL (2.0-7.7); Basophil# 0.03 X10^3/uL; Basophil% 0.2 % (0-1); Eosinophil# 0.15 X10^3/uL; Hematocrit 36.9 % (37-47); Hemoglobin 12.8 g/dL (12.0-15.0); Lymphocyte # 3.47 X10^3/ul (0.83-4.51); Lymphocyte % 22.5 % (19-41); Mean Corp Hgb Conc 34.7 g/dL (32-36); Mean Corpuscular Hgb 31.8 pg (27.0-32.0); Mean Corpuscular Volume 91.6 fL (81-99); Mean Platelet Vol. 10.6 fl (6.2-12.0); Monocyte# 0.79 X10^3/uL; Monocyte% 5.1 % (0-10); NRBC Flagged by Analyzer 0 % (0-5); Neutrophil % 70.6 % (47-70); Platelet Count 242 K/mm3 (150-450); RBC Distribution Width CV 13.2 % (11.6-14.6); RBC Distribution Width SD 44.1 fl (35.1-43.9); Red Blood Count 4.03 M/mm3 (4.2-5.4); White Blood Count 15.4 K/mm3 (4.4-11.0)
[2021-12-06 22:13] VITALS: BP 129/70; PULSE 91
[2021-12-07] VITALS (38 sets, daily range): BP systolic 88–157; BP diastolic 50–90; PULSE 63–104; RESP 16–18; TEMP 35.9–36.8; O2SAT 95–98
[2021-12-07] MEDS: Lactated Ringers 1,000 ML 50 ML IV (01:23)
[2021-12-07] MEDS: Lactated Ringers 500 ML 999 ML IV (01:24)
[2021-12-07] MEDS: proCHLORPERazine 10 MG/2 ML Vial IV (02:49)
[2021-12-07] MEDS: fentaNYL-bupivacaine (epidural) 100 ML BAG EPIDURAL (03:59)
[2021-12-07] MEDS: Acetaminophen 500 MG Tablet PO (04:02)
[2021-12-07] MEDS: Lactated Ringers 1,000 ML 200 ML IV (06:52)
[2021-12-07] MEDS: Oxytocin 30 units/NS 500 ml 30 UNITS/500 ML IV.SOLN 334 UNITS IV (08:36)
--- NOTE | 2021-12-07 08:54 | OP.PCM_ITS ---
Assessment & Plan (1) SROM (spontaneous rupture of membranes): COMMENT: plan pit PRN, epi PRN (2) Back pain affecting : COMMENT: refer Dossi (3) Abnormal glucose affecting : COMMENT: needs 3gtt, could not complete 3 hr. Ordered testing supplies. 1 wk BG readings WNL; will repeat BG readings qid X 1 week at 28 wk, 3 days of readings nl. (4) Obesity (BMI 30.0-34.9): COMMENT: GCT at NOB (5) Supervision of other normal : COMMENT: PRR MYRNA: 12/19/21 girl PC: Daniel Seay Lyam BF:Amrik (6) Short interval between pregnancies affecting , antepartum: COMMENT: delivered 11/2020 (7) : QUALIFIERS: Weeks of gestation: 38 weeks Qualified Code(s): Z3A.38 - 38 weeks gestation of COMMENT: declines carrier, NIPT low risk. neg afp. anatomy reviewed. GBS neg (8) LGSIL (low grade squamous intraepithelial dysplasia): COMMENT: no dysplasia on colposcopy. repeat pap postpartem (9) Anxiety with depression: COMMENT: counseling encouraged. failed zoloft. switch to celexa. (10) Vaginal delivery: COMMENT: SM IAL SROM 39 girl Indie Maternal Data Information MYRNA Calculator Estimated Delivery Date Method Current WG Current Estimate 12/19/21 Ultrasound #1 38w 2d Vaginal Delivery Operative Information Date of Procedure: 12/07/21 Pre-Operative Diagnosis: IAL Post-Operative Diagnosis: same Surgery / Procedure Performed: Spontaneous Vaginal Delivery Type of Anesthesia: Epidural Special Medications: none Estimated Blood Loss: 100 Fluids Replaced: crystalloid Findings Description of Procedure: Patient began pushing and delivered the head in the SIXTO presentation. The head was delivered atraumatically . The anterior and posterior shoulders delivered without complication followed by the rest of the and the was placed on the maternal abdomen. Delayed cord clamping was employed for approximately 60 seconds. Cord was clamped and cut and gentle traction was applied to the cord and the placenta delivered spontaneously immediately following it was noted to be intact with three-vessel cord. The perineum and vagina were inspected and noted to have no laceration. EBL was 100 cc. Patient and infant tolerated delivery well. Presentation: SIXTO Amniotic Membrane Rupture Type: Artificial Amniotic Fluid Description: Clear Placental Delivery Description: Spontaneous Placenta Disposition: [facility] Cord Vessel Description: 3 Vessels Cord Entanglement: None Delayed Cord Clamping: Yes Post Vaginal Delivery Medications Given After Delivery: IV Pitocin Episiotomy Description: None Laceration: None Complication Complications: None Procedures Urinary/Genital [id number]: [id number] Vaginal Delivery+PP Care([facility])
--- NOTE | 2021-12-07 08:55 | PCM.DC ---
Discharge Instructions Diet Discharge Diet: No restrictions Activity Discharge Activity: Return to Normal Activity, May Not Drive (while taking narcotic pain medications.) and May Shower May resume sexual activity in: 4-6 weeks Dressing / Incision Call your doctor if your incision/area has: Continuous Slow Oozing, Sudden Increased Bleeding, Increased Pain/ Swelling, Increased Redness and Foul Smelling Discharge Follow Up Care Please Follow Up With: Jessica Chen MD When: Call [phone] to make an appointment with your doctor in 6 weeks. If you had elevated blood pressure or 4th degree laceration, you will need to be seen in 2 weeks. Test Results: Test results from this visit will be discussed in further detail at your follow-up appointment, if applicable. Discharge Plan Admission Admit Date/Time: 12/06/21 21:10 Primary Reason for Your Visit: vaginal delivery Attending Provider: Jessica Chen Primary Care Provider: Eusebio Morgan Discharge Orders/Prescriptions Prescriptions: No Action prenat.vits,louie,mwu-qggm-jgvce Tablet 1 tab PO DAILY Qty: 30 RF: 12 famotidine [Pepcid] 20 mg tablet 20 mg PO BID Qty: 60 RF: 6 citalopram 40 mg tablet 40 mg PO DAILY Qty: 30 RF: 12 meclizine 25 mg tablet 25 mg PO .COMPLEX Qty: 60 RF: 1 Referrals / Follow Up: Eusebio Morgan MD [Primary Care Provider] - Disposition Disposition (needs filled in before D/C Order can be placed): Home, Self Care
[2021-12-07] MEDS: Lactated Ringers 500 ML IV.SOLN. IV (09:57)
[2021-12-07] MEDS: Famotidine 20 MG Tablet PO ×2 (11:02→21:52)
[2021-12-07] MEDS: Citalopram 40 MG TABLET PO (11:02)
--- NOTE | 2021-12-07 19:22 | CASEMGMT ---
Social Work Assessment Labor and Delivery Unit Date of Referral: 12/07/21 Time of Referral: 11:21 Referred By: Dr. Jessica Chen Date of Intervention: 12/07/2021 Time of Intervention: 19:22 Reason for Referral: Support person ?Salty? not Father of baby (FOB). FOB not involved. Mother of baby (MOB) with history of depression and anxiety. History obtained from: MOB, chart, nursing staff. Household composition: MOB and three other children Asuncion Adkins (: 12/20/2020), Hawk Hair (: 01/08/2018), and Ada Hair (: 12/01/2013). MOB reports that housing is adequate. This infant to be named Corry and MOB reports to be ?undecided on last name.? Per MOB Corry and Asuncion share paternity with Amrik Adkins being reported FOB. MOB reports that Salty Hair is FOB to Hawk and Ada has taken Hawk? last name. MOB reports that Ada?s FOB is not involved and ?not sure who he was.? MOB reports that Amrik is not currently involved in MOB?s life since 2020. MOB identifies Salty as main support person. MOB reports that was not avoided with Corry. Patient's parent/guardian status: MOB denies any current dating relationship. MOB defines relationship with Salty as ?we co parent well together.? MOB is own person. Medical History: MOB with history prior to delivery of this infant. MOB with vaginal delivery at 38 weeks with this . MOB with history of depression and anxiety. MOB with appropriate care visits with first visit being on 05/30/2021. MOB plans for infant to follow with Dr. Amador in the community. MOB plans to bottle feed infant and states that bottle feeding is going well. Infant born on 12/07/2023 with apgars of 9 and 9 at 1min and 5min and weight of 3240g. Educational Status: MOB denies any issues with reading or writing. Financial Status: MOB reports financial concerns as needed to buy a ?bigger vehicle? as MOB now has 4 children. MOB reports to have had to use ?tax money? for the vehicle and is unsure of how MOB will afford rent next month. MOB reports plan to take 6 weeks off work. 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 This social services analyst provided MOB with community resources and options for housing support. MOB reports to be [place]. MOB denies any financial concerns in regards to food or infant/children supplies. Infant Supplies: MOB reports to have needed infant supplies including a car seat and crib. Childcare/Caregiver(s): MOB plans to be primary caregiver for children until returning to work. MOB?s other children are currently being cared for by Salty?s parents and ?a friend.? MOB reports plan for children to attend daycare/school when MOB is working. MOB reports to have financial assistances with daycare through [employer] [facility]. Transportation: Denies concerns. Programs/Agencies Involved: MOB connected with [facility], [employer] [facility] for day care support and food stamps. This social services analyst broached topic of Help Me Grow referral. MOB agreeable to this social services analyst making referral for Help Me [facility]. Children Services/Legal Issues: MOB denies any legal issues or history of children services involvement. Behavioral Health Issues: MOB with history of depression and anxiety. MOB reports to have had depression with first child, Ada. MOB denies depression with other infants. MOB describes past symptoms of depression as ?sleeping deeply and not able to hear the baby.? MOB reports to have then been ?paranoid? that MOB would not hear . MOB denies experiencing any paranoia with other infants or ?sleeping deeply.? MOB reports to be prescribed celexa and ?this helps.? MOB reports to be active with counseling through [facility] and to have a counseling appointment on Thursday. MOB plans to continue with counseling in the community and to see counseling bi-weekly. MOB denies any history of suicidal thoughts, plans, intents. MOB reports main concern on returning to home is ?caring for all the kids.? MOB reports to be ?anxious.? This social services analyst able to facilitate conversation with MOB about options for supports such as Salty and MOB?s ?friend.? MOB identifies limited support from MOB?s family. Substance Use History: MOB reports to smoke daily. MOB reports to smoke outside of the home and to only smoke in the car ?after I drop off the kids.? MOB denies any other substance abuse/use. MOB with negative tox screen on 05/30/2021. PHQ9: Did not trigger. MOB responses to this social services analyst were ?mostly anxious? due to adjusting to having 4 children in the home with limited support. Family/Social Stressors: MOB identifies main stressor as adjusting to life with four children. Support Systems: MOB with limited support. Initially MOB identifies Salty as only support but then later in the conversation identifies multiple other support systems that MOB is using for care of other children currently. MOB denies support from MOB?s mother. Depression and Anxiety/Shaken Baby/Safe Sleeping: This social services analyst provided MOB with information on depression and anxiety as well as shaken baby, safe sleeping, and [facility] resources. MOB responding appropriately to shaken baby and safe sleeping prompts. ASSESSMENT: This social services analyst met with MOB and infant in room. Introduced self and social services analyst role. Patient agreeable to speak with this social services analyst. Upon entering the room Salty is present. This social services analyst explaining that this social services analyst would be asking Salty to leave at some point in the assessment. Salty decided to leave at the beginning of the assessment to ?go check on the dog? and ?pick and shovel worker supplies.? MOB with multiple dynamics but responding appropriately to prompts and presents with insight into current situation and ability to problem solve. MOB is agreeable to Help Me Grow referral as another support option. MOB reports that Salty is planning to check in more next week. MOB denies any immediate concerns on returning to the community. This social services analyst encouraged MOB to reach out to local resources if needed for support with housing or any other social concerns. MOB expressing willingness to reach out for support. Active support and listening provided. resting in bassinet during assessment. MOB gazing often towards and reports to have a connection with infant. Safe Plan of Care for infant related to substance use: MOB reports to not smoke around children or in the house. Referral made to Help Me Grow PLAN: Infant to discharge to home with MOB. Nursing staff updated on above. No other services requested or indicated. Kameron GRAHAM, ERMA
[2021-12-07] MEDS: Acetaminophen 500 MG Tablet 1000 MG PO (20:55)
[2021-12-08] VITALS (8 sets, daily range): BP systolic 112–137; BP diastolic 57–79; PULSE 70–90; RESP 14–16; TEMP 36.2–36.8; O2SAT 91–100
[2021-12-08] MEDS: Acetaminophen 500 MG Tablet 1000 MG PO (04:59)
--- NOTE | 2021-12-08 07:23 | PCM.PN.OB ---
Subjective Subjective Patient doing well without complaints. Tolerating PO. Ambulating and voiding without difficulty. feeding well. Denies chest pain, shortness of breath, calf pain/swelling, fevers, chills, lightheadedness. Objective Data Objective Data Vital Signs: Vital Signs Temp Pulse Resp BP Pulse Ox 97.8 F 75 16 137/79 H 100 12/08/21 05:09 12/08/21 05:09 12/08/21 05:09 12/08/21 05:09 12/08/21 05:09 Oxygen Delivery Method Room Air Weight: 209 lb Body Mass Index (BMI) 33.7 Intake & Output: Intake and Output for Last 24 Hours 12/06/21 12/07/21 12/09/21 23:59 23:59 00:59 Intake Total 1620.84 / 1620.84 Output Total 500 / 500 Balance 1120.84 / 1120.84 Lab / Micro Data Result Diagrams: 12/06/21 21:45 Micro: Microbiology 12/06/21 22:00 Nasal Secretion SARS-CoV-2 Antigen (Rapid) - Final ROS Constitutional Constitutional: Reports systems reviewed and no addt'l complaints, except as documented Cardiovascular Cardiovascular: Reports systems reviewed and no addt'l complaints, except as documented Respiratory/Chest Respiratory/Chest: Reports systems reviewed and no addt'l complaints, except as documented Gastrointestinal Gastrointestinal: Reports systems reviewed and no addt'l complaints, except as documented Physical Exam Const alert, oriented x3 and no apparent distress HEENT Head and Scalp: atraumatic Resp normal respiratory effort GI soft to palpation and non-tender Bimanual Exam - Vag & Uterus: uterus non-tender Uterus Palpation: uterus fundus firm (below Umbilicus) Assessment & Plan (1) Vaginal delivery: COMMENT: SM IAL SROM 39 girl Indie (2) Anxiety with depression: COMMENT: counseling encouraged. failed zoloft. switch to celexa. PLAN: s/p PPD # 1 1. routine post delivery care 2. breast feeding- support given 3. rh positive 4. rubella immune
== END 2021-12-08 13:15 | disposition home or self-care (01) | DRG 560 ==
LOC: WPOUT 21:18 → WP 21:18
PROVIDERS: Admitting Provider Obstetrics & Gynecology; PCP Family Medicine; Visit Provider Obstetrics & Gynecology
DX: O99.344 Other mental disorders complicating childbirth (principal); Z37.0 Single live birth; F17.200 Nicotine dependence, unspecified, uncomplicated; F41.8 Other specified anxiety disorders; Z3A.38 38 weeks gestation of pregnancy; Z79.899 Other long term (current) drug therapy; O99.334 Smoking (tobacco) complicating childbirth
CPT/HCPCS: 59025; 59050; 84112; 85025; 86850; 86900; 86901; 87811; 99218; 99406; J7120; A4216; G0378

== ENCOUNTER → 2022-08-20 | Outpatient (CLI) | payer MEDICAID, SELFPAY ==
[2022-08-25 21:07] LABS: Chlamydia By Nucleic Acid AMP Negative (Negative)
[2022-08-26 14:56] LABS: Gonococcus By Nucleic Acid AMP Negative (Negative)
== END | disposition home or self-care (01) ==
LOC: LABSPEC 13:17
PROVIDERS: PCP Family Medicine; Visit Provider Registered Nurse
DX: R10.2 Pelvic and perineal pain (principal)
CPT/HCPCS: 87070; 87205; 87491; 87591

== ENCOUNTER 2023-02-20 09:18 | Emergency (ER) | payer MEDICAID, SELFPAY ==
[2023-02-20 09:18] VITALS: BP 136/87; PULSE 108; RESP 16; TEMP 36.2; O2SAT 100; BMI 32.3
--- NOTE | 2023-02-20 10:32 | EX.ED.DYSGE1 ---
HPI History of Present Illness Chief Complaint: Sore Throat Narrative Narrative: Patient is a 28-year-old female who is presenting to the ER today with chief complaint of sore throat. Patient says that she was sent to the ER from the urgent care because they are concerned about peritonsillar abscess and patient would need to see a ENT. Patient has sore throat for 3 days. Patient has no fever. Patient's had several episodes of nausea and vomiting this morning, no diarrhea. Patient is due to start her menses this week. Patient has no neck pain, patient is having some mild sinus pressure. Patient has no chest pain or shortness of breath. 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 No strep contacts that she is aware of. Patient has not had strep throat in a long time. Patient strep test was negative in the urgent care. The urgent care worker told the patient that if she could not go to ENT, she should come to the ER for evaluation. Patient has no hot potato voice, no trismus, no difficulty swallowing. Patient does have sinus drainage. Patient is taking no medication [id number], no other acute complaints at this time. PFSH PFS Medical History Anxiety Depression Fatigue Knee pain LGSIL (low grade squamous intraepithelial dysplasia) Low-lying placenta in second trimester neck/back pain Ovarian cyst Severe headache Short interval between pregnancies affecting , antepartum Shoulder pain Supervision of other normal unexplained bruises Home Medications clindamycin HCl 150 mg capsule 300 mg PO 3XD 7 days #21 CAPSULES 02/20/23 [Rx Last Taken Unknown] prochlorperazine maleate 10 mg tablet (Compazine) 10 mg PO BID PRN nausea and vomiting #7 tabs 02/20/23 [Rx Last Taken Unknown] Allergy/AdvReac Type Severity Reaction Status Date / Time Sulfa (Sulfonamide Allergy Intermediate Hives Verified 02/20/23 09:20 Antibiotics) ondansetron [From Zofran] AdvReac Nausea/Vom/ Verified 02/20/23 09:20 Diarrhea Family History Grandfather Cancer lymphoma Aunt Cancer Pancreatic, brain cancer Grandmother Diabetes Hyperlipidemia [place] disease Father Heart disease Status post double vessel coronary artery bypass Social History household members: family number of children: 4 current occupational status: employed Smoking Status: Current every day smoker tobacco type: e-cigarettes alcohol intake: never substance use type: does not use caffeine: Yes what type of physical activity do you participate in: none frequency: 1-2 times per week seatbelt use: always do you feel safe at home: Yes ROS ROS ED ROS Narrative REVIEW OF SYSTEMS: Unless otherwise stated in this report the patient's positive and negative responses for review of systems for constitutional, eyes, ENT, cardiovascular, respiratory, gastrointestinal, neurological, , musculoskeletal, and integument systems and related systems to the presenting problem are either stated in the history of present illness or were not pertinent or were negative for the symptoms and/or complaints related to the presenting medical problem. EXAM Physical Exam Narrative Exam Narrative: Vital signs reviewed and patient is not hypoxic. General: The patient appears well and in no apparent distress. Patient is resting comfortably on cart. Not toxic, lethargic, or listless. Skin: Warm, dry, no pallor noted. There is no rash noted. Head: Normocephalic, atraumatic; patient has no trismus, no hot potato voice, no difficulty swallowing. Eye: Normal conjunctiva, no drainage, EOMI. PERRL. Ears, Nose, Mouth, and Throat: oral mucosa is moist. Nares patent. Mouth without vesicles. Patient has minimal swelling to the left tonsillar pillar compared to the right. Patient has exudate noted to the posterior pharynx, patient has clear drainage noted to the posterior pharynx, cobblestoning noted. No petechiae. Patient has no tenderness palpation to bilateral frontal and maxillary sinus. Patient has no signs of Miguel Angel angina, no other acute findings. Patient may have extremely early peritonsillar abscess on the left, there is minimal swelling on the left that is greater than the right. Cardiovascular: Regular Rate and Rhythm, no murmurs, gallops, or rubs Respiratory: Patient is in no distress, no accessory muscle use, lungs are clear to auscultation, no wheezing, rales or rhonchi Back: non-tender, GI: Soft, no tenderness Musculoskeletal: The patient has full range of motion of all extremities and joints with no difficulty. Patient has no motor, no sensory deficits. Neurological: A&O x4, normal speech, no focal neurological deficits. Psychiatric: Cooperative Const Vital Signs: 02/20/23 09:18 Temperature 97.1 F L Temperature Source Temporal Pulse Rate 108 H Respiratory Rate 16 Blood Pressure 136/87 H Blood Pressure Mean 103 Pulse Ox 100 Oxygen Delivery Method Room Air MDM MDM MDM Narrative Medical decision making narrative: Patient has already had a rapid strep test that was negative at the urgent care. Patient was given Decadron and Compazine in the ER. Patient will be sent home with Compazine prescription and clindamycin., Clindamycin will be started prophylactically to help prevent peritonsillar abscess, there is minimal swelling on the left tonsillar pillar compared to the right. Exudate is noted. Patient will follow-up with PCP. Discharge Plan Triage Chief Complaint: Sore Throat ED Provider: Jr Castrejon Dx/Rx/DC Orders Clinical Impression: Pharyngitis, Nausea & vomiting, Flu-like symptoms Instructions: Self-Care for Sore Throats, ED Peritonsillar Abscess, ED Pharyngitis, Report Pending, ED Vomiting (Adult) Prescriptions: New clindamycin HCl 150 mg capsule 300 mg PO 3XD 7 Days Qty: 21 0RF prochlorperazine maleate [Compazine] 10 mg tablet 10 mg PO BID PRN (Reason: nausea and vomiting) Qty: 7 0RF Primary Care Provider: Eusebio Morgan Referrals: Roland Will MD [Med Staff - Courtesy Staff] - Eusebio Morgan MD [Primary Care Provider] - Activity Restrictions/Additional Instructions: Use [id number] DayQuil, NyQuil, Sudafed, and Flonase. Alternate Tylenol and anti-inflammatories for pain. Increase cold popsicles, cold drinks, ice cubes for pain relief. You are given a dose of Decadron in the ER that will last for 3 days to help with inflammation and pain to the posterior pharynx. If you are starting to have difficulty swallowing and is getting worse, significant swelling or pain to the left side, or any other acute complaints, return to the ER. Otherwise follow-up with PCP. I am not diagnosing you with a peritonsillar abscess, this education was given to you for educational purposes only as discussed at bedside . Disposition Disposition: Home, Self Care
[2023-02-20] MEDS: dexAMETHasone 10 MG/ML Vial 16 MG PO.IVFORM (10:56)
[2023-02-20] MEDS: proCHLORPERazine 5 MG Tablet 10 MG PO (11:20)
== END 2023-02-20 11:21 | disposition home or self-care (01) ==
PROVIDERS: Emergency Provider Emergency Medicine; PCP Family Medicine; Visit Provider Emergency Medicine
DX: J02.9 Acute pharyngitis, unspecified (principal); R11.2 Nausea with vomiting, unspecified; F17.290 Nicotine dependence, other tobacco product, uncomplicated
CPT/HCPCS: 99283

== ENCOUNTER → 2023-03-25 | Outpatient (CLI) | payer MEDICAID, SELFPAY ==
[2023-04-02 14:08] LABS: HPV APTIMA, High Risk Positive (Negative)
== END | disposition home or self-care (01) ==
LOC: LABSPEC 14:04
PROVIDERS: PCP Family Medicine; Referring Provider Obstetrics & Gynecology; Visit Provider Obstetrics & Gynecology
DX: Z12.4 Encounter for screening for malignant neoplasm of cervix (principal)
CPT/HCPCS: 87624; 88175; G0145

== ENCOUNTER 2023-04-14 08:58 | Day surgery (SDC) | payer MEDICAID, SELFPAY ==
[2023-04-14] VITALS (7 sets, daily range): BP systolic 95–109; BP diastolic 61–79; PULSE 59–74; RESP 16–18; TEMP 36.1–36.5; O2SAT 97–100; BMI 32.0
--- NOTE | 2023-04-14 | IMM_PTH ---
PATHOLOGY RESULTS PATIENT: MARTITA MOON LOC: [facility] [place] U#:[id number] AGE/SX: 28/F ROOM: RE04/14/[address]: Dr. Nettie Cortez DO : 1995 BED: DIS: 04/14/2023 SPEC #: [id number] RECD: 04/15/23 13:01 STATUS: MARIANO MOIZ #: [id number] LIAT: 04/14/23 00:[address]: Nettie Cortez DEPT: IMMUNOHISTOCHEMISTRY RECD BY: Светлана Pearson ENTERED: 04/15/23 13:02 SP TYPE: IMMUNO OTHR DR: Dr. Eusebio Morgan MD Tissues: Uterine cervix, NOS Uterine cervix, NOS Procedures: p16 (initial) KI-67 (add) PHYSICIAN & INSTITUTION [place] [id number] SPECIMEN INFORMATION: Tissue Source: B - Cervix at 12 o'clock, D - Cervix at 3 o'clock Clinical Info: Abnormal pap Specimen Number: [id number] B & D CPT code: 79890 x2, 93270 x2 METHODOLOGY: Deparaffinized sections of prefer/formalin-fixed tissue or PAP/DQ stained slides are incubated with monoclonal/polyclonal antibodies/oligonucleotide probes. Localization is made via biotin free immunoperoxidase method. Appropriate controls are performed and reacted as expected. Results on target cell population are indicated in the following table: RESULTS: ANTIBODY / CLONE RESULT Block B P16 (E6H4) positive, focal patchy staining Ki-67 (30-9) positive, low Block D P16 (E6H4) positive, focal patchy staining Ki-67 (30-9) positive, low These tests were developed and their performance characteristics determined by [facility]. They may not have been cleared or approved by the U.S. Food and Drug Administration. The FDA has determined that such clearance or approval is not necessary. The above immunohistochemical/dualISH markers are ordered and reviewed by the Pathologist. INTERPRETATION: B. Cervix at 12 o'clock, biopsy: Focal changes consistent with HPV cytopathic effects. D. Cervix at 3 o'clock, biopsy: Focal changes consistent with HPV cytopathic effects. SJ:tony 04/16/2023
[2023-04-14 09:30] LABS: Internal QC Validated? YES +Cl - CLEAR BKGD; Pregnancy, Urine Negative Negative
[2023-04-14 09:41] LABS: Hematocrit 39.2 % (37-47); Hemoglobin 12.8 g/dL (12.0-15.0); Mean Corp Hgb Conc 32.7 g/dL (32-36); Mean Corpuscular Hgb 29.8 pg (27.0-32.0); Mean Corpuscular Volume 91.4 fL (81-99); Mean Platelet Vol. 10.6 fl (6.2-12.0); Platelet Count 241 K/mm3 (150-450); RBC Distribution Width CV 12.8 % (11.6-14.6); RBC Distribution Width SD 42.4 fl (35.1-43.9); Red Blood Count 4.29 M/mm3 (4.2-5.4); White Blood Count 8.1 K/mm3 (4.4-11.0)
[2023-04-14 09:43] LABS: Scan Indicated on CBC? Y/N NO
--- OUTSIDE RECORDS SUMMARY | 2023-04-14 09:56 | XMS RPT_ITS | CCD ---
Author Name Unknown Address [address] [place] [address] Organization [facility] Care Team Providers Care Diathermy Equipment Repairer Name Role Phone Jessica Monreal MD Unavailable [phone] LUCAS STOCK Unavailable Unavailable JESSICA MONREAL Unavailable Unavailruddy AMADOR PRIMARY CAREMD Unavailable Unavailable LARISSA KING Unavailable Unavailable LARISSA KING Unavailable Unavailable PERRY PRIMARY CAREMD Unavailable Unavailable Mayda Morgan MD Primary Care Provider Mayda Morgan MD Primary Care Provider MAYDA MORGAN Primary Care Unavailable MAYDA MORGAN Primary Care Unavailable MAYDA MORGAN Primary Care Unavailable MAYDA MORGAN Attending Unavailable MAYDA MORGAN Primary Care Unavailable MAYDA MORGAN Primary Care Unavailable Allergies Allergy Classification Reported Allergen(s) Allergy Type Date of Onset Reaction(s) Facility (5 sources) sulfamethoxazole / trimethoprim Drug Allergy 06-05-20 17 [facility] (8 sources) Ondansetron; Translations: [ONDANSETRON HCL (PF)] Drug Allergy 11-12-19 19 Vomiting [facility] (8 sources) Sulfonamides (Antibiotic); Translations: [SULFA (SULFONAMIDE ANTIBIOTICS)] Propensity to adverse reactions 10-31-19 06 [facility] Medications Current Medications Medication Drug Class(es) Dates Sig (Normalized) Sig (Original) acetaminophen 325 mg oral capsule (4 sources) End: 10-29-2022 acetaminophen 325 mg cap Take by mouth as directed. 0 10/29/2022 Discontinued Completed/Discontinued Medications Medication Drug Class(es) Dates Sig (Normalized) Sig (Original) 12 hr guaiFENesin 600 mg extended release oral tablet (3 sources) Start: 11-19-2021 End: 05-20-2022 take 1 tablet by mouth twice daily guaiFENesin (MUCINEX) 600 mg 12 hr tablet Take 1 tablet by mouth twice daily. 30 tablet 0 11/19/2021 05/20/2022 Discontinued (Course of therapy completed) Problems Active Problems Problem Classification Problem Date Documented Date Episodic/Chronic Anxiety disorders (9 sources) Mixed anxiety and depressive disorder; Translations: [Other specified anxiety disorders] Onset: 01-02-2014 01-02-2014 Chronic Immunizations and screening for infectious disease (1 source) Contact with or exposure to other viral diseases; Translations: [Exposure to COVID-19 virus] Episodic Menstrual disorders (5 sources) Irregular periods; Translations: [Irregular menstruation, unspecified] Onset: 06-05-2017 06-05-2017 Chronic Nausea and vomiting (1 source) Nausea; Translations: [Nausea] Episodic Noninfectious gastroenteritis (1 source) Gastroenteritis; Translations: [Noninfective gastroenteritis and colitis, unspecified] Episodic Other ear and sense organ disorders (1 source) Bilateral earache; Translations: [Otalgia, bilateral] Episodic Other upper respiratory infections (1 source) Bacterial sinusitis; Translations: [Chronic sinusitis, unspecified] Chronic Other upper respiratory infections (2 sources) Sore throat symptom; Translations: [Acute pharyngitis, unspecified] Episodic Viral infection (1 source) Viral disease; Translations: [Viral infection, unspecified] Episodic Past or Other Problems Problem Classification Problem Date Documented Da te Episodic/Chronic Normal and/or delivery (20 sources) Gestation period, 17 weeks; Translations: [Gestation period, 12 weeks] Onset: 06-05-2017 08-03-2017 Episodic Results Test Name Value Interpretation Reference Range Facil ity Vital Signs Date Time Vital Sign Value Performing Clinician Rosina rushing 02-09-2023 08:37-0400 Body temperature 97.5 [degF] Damian Rivera MD Work Phone: [facility] 02-09-2023 08:37-0400 Body weight 91.63 kg Damian Rivera MD Work Phone: [facility] 02-09-2023 08:37-0400 Diastolic blood pressure 70 mm[Hg] Damian Rivera MD Work Phone: [facility] 02-09-2023 08:37-0400 Heart rate 112 /min Damian Rivera MD Work Phone: [facility] 02-09-2023 08:37-0400 Respiratory rate 16 /min Damian Rivera MD Work Phone: [facility] 02-09-2023 08:37-0400 SaO2% (BldA) [Mass fraction] 98 % Damian Rivera MD Work Phone: [facility] 02-09-2023 08:37-0400 Systolic blood pressure 120 mm[Hg] Damian Rivera MD Work Phone: [facility] 11-18-2022 08:25-0500 Body temperature 97.81 [degF] Mariaelena Arroyo APRN.FLUORESCENT SOLUTION MIXER Work Phone: [facility] 11-18-2022 08:25-0500 Body weight 92.53 kg Mariaelena Arroyo APRN.FLUORESCENT SOLUTION MIXER Work Phone: [facility] 11-18-2022 08:25-0500 Diastolic blood pressure 64 mm[Hg] Mariaelena Arroyo APRN.FLUORESCENT SOLUTION MIXER Work Phone: [facility] 11-18-2022 08:25-0500 Heart rate 99 /min Mariaelena Arroyo APRN.FLUORESCENT SOLUTION MIXER Work Phone: [facility] 11-18-2022 08:25-0500 Respiratory rate 18 /min Mariaelena Arroyo APRN.FLUORESCENT SOLUTION MIXER Work Phone: [facility] 11-18-2022 08:25-0500 SaO2% (BldA) [Mass fraction] 97 % Mariaelena Arroyo APRN.FLUORESCENT SOLUTION MIXER Work Phone: [facility] 11-18-2022 08:25-0500 Systolic blood pressure 112 mm[Hg] Mariaelena Arroyo APRN.FLUORESCENT SOLUTION MIXER Work Phone: [facility] 10-29-2022 08:06-0500 Body height 167.6 cm Mayda Morgan MD Work Phone: [facility] 10-29-2022 08:06-0500 Body temperature 98.29 [degF] Mayda Morgan MD Work Phone: [facility] 10-29-2022 08:06-0500 Body weight 92.08 kg Mayda Morgan MD Work Phone: [facility] 10-29-2022 08:06-0500 Diastolic blood pressure 66 mm[Hg] Mayda Morgan MD Work Phone: [facility] 10-29-2022 08:06-0500 Heart rate 105 /min Mayda Morgan MD Work Phone: [facility] 10-29-2022 08:06-0500 SaO2% (BldA) [Mass fraction] 97 % Mayda Morgan MD Work Phone: [facility] 10-29-2022 08:06-0500 Systolic blood pressure 104 mm[Hg] Mayda Morgan MD Work Phone: [facility] 05-20-2022 10:55-0400 Body temperature 97.39 [degF] Jr Gómez ANIMAL PHYSIOLOGY TEACHER.FLUORESCENT SOLUTION MIXER Work Phone: [facility] 05-20-2022 10:55-0400 Body weight 89.81 kg Jr Gómez ANIMAL PHYSIOLOGY TEACHER.[employer] SOL[employer] MIXER Work Phone: [facility] 05-20-2022 10:55-0400 Diastolic blood pressure 80 mm[Hg] Jr Gómez ANIMAL PHYSIOLOGY TEACHER.FL[employer]ESCENT SOLUTION MIXER Work Phone: [facility] 05-20-2022 10:55-0400 Heart rate 94 /min Jr Gómez ANIMAL PHYSIOLOGY TEACHER.FL[employer]ESCENT SOLUTION MIXER Work Phone: [facility] 05-20-2022 10:55-0400 Respiratory rate 18 /min Jr Gómez ANIMAL PHYSIOLOGY TEACHER.FLU[employer]CENT SOLUTION MIXER Work Phone: [facility] 05-20-2022 10:55-0400 SaO2% (BldA) [Mass fraction] 97 % Jr Gómez ANIMAL PHYSIOLOGY TEACHER.FLU[employer]ESCENT SOLUTION MIXER Work Phone: [facility] 05-20-2022 10:55-0400 Systolic blood pressure 124 mm[Hg] Jr Gómez ANIMAL PHYSIOLOGY TEACHER.FLU[employer]ESCENT SOLUTION MIXER Work Phone: [facility] 05-04-2022 10:07-0400 Body temperature 97.59 [degF] Ansley Manjinder ANIMAL PHYSIOLOGY TEACHER.FLUORESCENT SOLUTION MIXER Work Phone: [facility] 05-04-2022 10:07-0400 Body weight 90.08 kg Ansley Manjinder ANIMAL PHYSIOLOGY TEACHER.FL[employer]CENT SOLUTION MIXER Work Phone: [facility] 05-04-2022 10:07-0400 Diastolic blood pressure 64 mm[Hg] Ansley Manjinder ANIMAL PHYSIOLOGY TEACHER.FLU[employer]ESCENT SOLUTION MIXER Work Phone: [facility] 05-04-2022 10:07-0400 Heart rate 95 /min Ansley Manjinder ANIMAL PHYSIOLOGY TEACHER.FLU[employer]ESCENT SOLUTION MIXER Work Phone: [facility] 05-04-2022 10:07-0400 Respiratory rate 16 /min Ansley Manjinder ANIMAL PHYSIOLOGY TEACHER.[employer]ESCENT SOLUTION MIXER Work Phone: [facility] 05-04-2022 10:07-0400 SaO2% (BldA) [Mass fraction] 97 % Ansley Manjinder ANIMAL PHYSIOLOGY TEACHER.FLU[employer]ESCENT SOLUTION MIXER Work Phone: [facility] 05-04-2022 10:07-0400 Systolic blood pressure 110 mm[Hg] Ansley Rogersk ANIMAL PHYSIOLOGY TEACHER.FLUORESCENT SOLUTION MIXER Work Phone: [facility] 08-03-2017 16:17-0500 BMI (Body Mass Index) 32.92 kg/m2 Jessica Monreal MD [facility] 08-03-2017 16:17-0500 Body Temperature 98.4 [degF] Jessica Monreal MD [facility] 08-03-2017 16:17-0500 BP Diastolic 79 mm[Hg] Jessica Monreal MD [facility] 08-03-2017 16:17-0500 BP Systolic 131 mm[Hg] Jessica Monreal MD [facility] 08-03-2017 16:17-0500 Pulse (Heart Rate) 121 /min Jessica Monreal MD [facility] 08-03-2017 16:17-0500 Respiratory Rate 16 /min Jessica Monreal MD [facility] 08-03-2017 16:17-0500 Weight 92.53 kg Jessica Monreal MD [facility] 07-02-2017 15:15-0400 Height 167.64 cm Jessica Monreal MD [facility] 06-05-2017 07:49-0400 Body Temperature 98.01 [degF] Jessica Monreal MD [facility] 06-05-2017 07:49-0400 Height 167.64 cm Jessica Monreal MD [facility] 06-05-2017 07:49-0400 Weight 88.81 kg Jessica Monreal MD [facility] Encounters Encounter Date Encounter Type Care Provider Facility Start: 02-09-2023 End: 02-09-2023 [facility] Facility:[facility] Start: 02-09-2023 End: 02-09-2023 Patient encounter procedure Damian Rivera MD Work Phone: [facility] Care Procedures Date Procedure Procedure Detail Performing Clinician Start: 08-03-2017 End: 08-04-2017 *CBC with Differential Jessica sethi MD Work Phone: Start: 08-03-2017 End: 08-05-2017 *HEBSAG - Hep B Surface Antigen 6510 Jessica Monreal MD Work Phone: Start: 08-03-2017 End: 08-05-2017 *HIV antibody Jessica Monreal MD Work Phone: Start: 08-03-2017 End: 08-07-2017 *TS Type and Screen Jessica Monreal MD Work Phone: Start: 08-03-2017 End: 08-07-2017 Reagin Ab [Presence] in Serum by RPR Jessica Monreal MD Work Phone: Start: 08-03-2017 End: 08-04-2017 Rubella virus Ab [Units/volume] in Serum Jessica Monreal MD Work Phone: Start: 06-05-2017 End: 06-06-2017 *CBC with Differential Jessica sethi MD Work Phone: Start: 06-05-2017 End: 06-06-2017 *HEBSAG - Hep B Surface Antigen 6510 Jessica Monreal MD Work Phone: Start: 06-05-2017 End: 06-06-2017 *HIV antibody Jessica Monreal MD Work Phone: Start: 06-05-2017 End: 06-06-2017 *TS Type and Screen Jessica Monreal MD Work Phone: Start: 06-05-2017 End: 06-06-2017 Reagin Ab [Presence] in Serum by RPR Jessica Monreal MD Work Phone: Start: 06-05-2017 End: 06-05-2017 Routine OB Visit (Global) Jessica garrido MD Work Phone: Start: 06-05-2017 End: 06-06-2017 Rubella virus Ab [Units/volume] in Serum Jessica Monreal MD Work Phone: Start: 06-05-2017 End: 06-06-2017 Us preg uterus after 1st trimest 1/ gestation Jessica Monreal MD Work Phone: Plan of Treatment Date Care Activity Detail Author Start: 09-23-2031 Urine microalbumin profile DTA P,TDAP,TD (8 - Td or Tdap) [facility] Start: 10-04-2030 Urine microalbumin profile DTA P,TDAP,TD (7 - Td or Tdap) [facility] Start: 03-28-2026 PAP TESTING PAP TESTING [facility] Start: 03-28-2024 PAP TESTING PAP TESTING [facility] Start: 10-29-2023 COVID-19 VACCINE (#1) COVID-19 VACCI NE (#1) [facility] Immunizations Immunization Date Immunization Notes Care Provider Fa cili 09-23-2021 diphtheria, tetanus toxoids and acellular pertussis vaccine, unspecified formulation Mayda Morgan MD Work Phone: [facility] 09-23-2021 tetanus toxoid, redu terri diphtheria toxoid, and acellular pertussis vaccine, adsorbed Mayda Morgan MD Work Phone: [facility] 10-04-2020 diphtheria, tetanus toxoids and acellular pertussis vaccine, unspecified formulation Mayda Morgan MD Work Phone: [facility] 10-04-2020 tetanus toxoid, redu terri diphtheria toxoid, and acellular pertussis vaccine, adsorbed Ansley Manjinder ANIMAL PHYSIOLOGY TEACHER.FLUORESCENT SOLUTION MIXER Work Phone: [facility] 08-22-2019 influenza, seasonal, injectable, preservative free Mayda Morgan MD Work Phone: [facility] 08-17-2018 influenza, seasonal, injectable, preservative free Mayda Morgan MD Work Phone: [facility] 12-26-2015 human papilloma viru s vaccine, quadrivalent Ansley Manjinder ANIMAL PHYSIOLOGY TEACHER.FLUORESCENT SOLUTION MIXER Work Phone: [facility] Work Phone: 12-26-2015 tetanus toxoid, redu terri diphtheria toxoid, and acellular pertussis vaccine, adsorbed Ansley Manjinder ANIMAL PHYSIOLOGY TEACHER.FLUORESCENT SOLUTION MIXER Work Phone: [facility] Work Phone: 05-02-2008 hepatitis B vaccine, pediatric or pediatric/adolescent dosage Ansley Manjinder ANIMAL PHYSIOLOGY TEACHER.FLUORESCENT SOLUTION MIXER Work Phone: [facility] 03-01-2008 hepatitis B vaccine, pediatric or pediatric/adolescent dosage Ansley Manjinder ANIMAL PHYSIOLOGY TEACHER.FLUORESCENT SOLUTION MIXER Work Phone: [facility] Work Phone: 07-22-2007 hepatitis B vaccine, pediatric or pediatric/adolescent dosage Ansley Manjinder ANIMAL PHYSIOLOGY TEACHER.FLUORESCENT SOLUTION MIXER Work Phone: [facility] Work Phone: 12-28-2006 measles, mumps and rubella virus vaccine Ansley Manjinder ANIMAL PHYSIOLOGY TEACHER.FLUORESCENT SOLUTION MIXER Work Phone: [facility] 06-12-1998 diphtheria, tetanus toxoids and acellular pertussis vaccine Ansley Manjinder ANIMAL PHYSIOLOGY TEACHER.FLUORESCENT SOLUTION MIXER Work Phone: [facility] Work Phone: 06-12-1998 poliovirus vaccine, inactivated Ansley Manjinder ANIMAL PHYSIOLOGY TEACHER.FLUORESCENT SOLUTION MIXER Work Phone: [facility] Work Phone: 04-22-1994 haemophilus influenz ae type b vaccine, HbOC conjugate Ansley Manjinder ANIMAL PHYSIOLOGY TEACHER.FLUORESCENT SOLUTION MIXER Work Phone: [facility] Work Phone: 04-22-1994 measles, mumps and rubella virus vaccine Ansley Manjinder ANIMAL PHYSIOLOGY TEACHER.[facility] Work Phone: [facility] Work Phone: 1993 DTaP-Haemophilus influenzae type b conjugate vaccine Ansley Manjinder ANIMAL PHYSIOLOGY TEACHER.[facility] Work Phone: [facility] Work Phone: 1993 DTaP-Haemophilus influenzae type b conjugate vaccine Ansley Manjinder ANIMAL PHYSIOLOGY TEACHER.FLUORESCENT SOLUTION MIXER Work Phone: [facility] Work Phone: 1993 poliovirus vaccine, inactivated Ansley Manjinder ANIMAL PHYSIOLOGY TEACHER.[facility] Work Phone: [facility] Work Phone: 1993 DTaP-Haemophilus influenzae type b conjugate vaccine Ansley Manjinder ANIMAL PHYSIOLOGY TEACHER.[facility] Work Phone: [facility] Work Phone: 1993 poliovirus vaccine, inactivated Ansley Manjinder ANIMAL PHYSIOLOGY TEACHER.[facility] Work Phone: [facility] Work Phone: Payers Date Payer Category Payer Medicaid [id number] 2013 Medicaid [id number] 2013 Unknown [id number] Social History Date Type Detail Facility Start: 08-18-2019 End: 10-29-2022 Tobacco smoking status SDIS Smokes tobacco daily [facility] History of tobacco use Cigarette Smoker [facility] Start: 08-18-2019 End: 10-29-2022 Cigarettes smoked current (pack per day) - Reported 0.5 [facility] Start: 08-18-2019 End: 10-29-2022 Tobacco use and exposure Smokeless tobacco non-user [facility] Start: 05-04-2022 End: 02-09-2023 Alcohol intake Current drinker of alcohol (finding) [facility] Start: 01-02-2014 History SDOH Alcohol Comment occassional wine cooler [facility] Start: 1995 Sex Assigned At Not on file [facility] Start: 04-24-2022 End: 05-20-2022 Exposure to SARS-CoV-2 (event) Yes [facility] Work Phone: Clinical Notes 04-12-2013 to 02-09-2023 Damian Rivera MD - 02/09/2023 8:45 AM EDTTelephone Encounter - Katina Jay LPN - 11/19/2022 8:07 AM ESTTelephone Encounter - Jr Gómez APRN.CNP - 11/19/2022 7:55 AM EST Note Date & Type Note Facility 02-09-2023 Note HNO ID: [id number] Author: Damian Rivera MD Service: ? Author Type: Physician Type: Progress Notes Filed: 02/09/2023 9:03 AM Note Text: Patient presents with: Nausea AND Vomiting: bilateral ear pain, left worse x 3 days HPI: Feeling sick for 3 days. 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 PAST MEDICAL HISTORY Diagnosis Date Depression with anxiety 01/02/2014 MEDICATIONS: Current Outpatient Medications Medication Sig hydrOXYzine HCl (ATARAX) 25 mg tablet Take 1-2 tablets by mouth every 6 hours as needed for anxiety. FLUoxetine (PROZAC) 20 mg capsule Take 1 capsule by mouth once daily. (Patient not taking: Reported on 02/09/2023) No current facility-administered medications for this visit. ALLERGIES: ALLERGIES Allergen Reactions Sulfa (Sulfonamide * Zofran [Ondansetron* Vomiting VITALS: BP 120/70 Pulse 112 Temp 36.4 ?C (97.5 ?F) Resp 16 Wt 91.6 kg (202 lb) LMP 10/18/2022 (Exact Date) SpO2 98% BMI 32.60 kg/m? PHYSICAL EXAM: GEN: mildly ill appearing HEENT: PERRL, EOMI, conjunctiva clear Ears: canals clear. TMs without erythema, bulge, or effusion. L>R TMJ tenderness to palpation. Throat: moist mucous membranes, mild erythema, no exudate Neck: supple, no thyromegaly, no lymphadenopathy HEART: regular rate and rhythm, no murmurs LUNGS: clear to auscultation, no wheezes or crackles, no increased WOB ABD: Soft, non-distended, no masses, general discomfort palpation without focal tenderness. ASSESSMENT/PLAN: 1. Gastroenteritis - ICD9: 558.9, ICD10: K52.9 (primary diagnosis) Hydration with fluids encouraged. Resume normal solid intake as tolerated. Limit antidiarrheal OTC to occasional use when required. Hand hygiene to reduce transmission. Follow up in the ER with signs of dehydration, increasing abdominal pain, high fever, or blood in vomit or stool. - PROMETHAZINE 25 MG TABLET -reviewed hydroxyzine and Benadryl are in the same drug class and should not be taken at the same time. 2. Otalgia of both ears - ICD9: 388.70, ICD10: H92.03 As needed OTC analgesia for temporomandibular joint pain. Damian Rivera MD [facility] 02-09-2023 History of Presen t illness Narrative Patient presents with: Nausea & Vomiting: bilateral ear pain, left worse x 3 days HPI: Feeling sick for 3 days. 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 PAST MEDICAL HISTORY Diagnosis Date Depression with anxiety 01/02/2014 MEDICATIONS: Current Outpatient Medications Medication Sig hydrOXYzine HCl (ATARAX) 25 mg tablet Take 1-2 tablets by mouth every 6 hours as needed for anxiety. FLUoxetine (PROZAC) 20 mg capsule Take 1 capsule by mouth once daily. (Patient not taking: Reported on 02/09/2023) No current facility-administered medications for this visit. ALLERGIES: ALLERGIES Allergen Reactions Sulfa (Sulfonamide * Zofran [Ondansetron* Vomiting VITALS: BP 120/70 Pulse 112 Temp 36.4 C (97.5 F) Resp 16 Wt 91.6 kg (202 lb) LMP 10/18/2022 (Exact Date) SpO2 98% BMI 32.60 kg/m PHYSICAL EXAM: GEN: mildly ill appearing HEENT: PERRL, EOMI, conjunctiva clear Ears: canals clear. TMs without erythema, bulge, or effusion. L>R TMJ tenderness to palpation. Throat: moist mucous membranes, mild erythema, no exudate Neck: supple, no thyromegaly, no lymphadenopathy HEART: regular rate and rhythm, no murmurs LUNGS: clear to auscultation, no wheezes or crackles, no increased WOB ABD: Soft, non-distended, no masses, general discomfort palpation without focal tenderness. ASSESSMENT/PLAN: 1. Gastroenteritis - ICD9: 558.9, ICD10: K52.9 (primary diagnosis) Hydration with fluids encouraged. Resume normal solid intake as tolerated. Limit antidiarrheal OTC to occasional use when required. Hand hygiene to reduce transmission. Follow up in the ER with signs of dehydration, increasing abdominal pain, high fever, or blood in vomit or stool. - PROMETHAZINE 25 MG TABLET -reviewed hydroxyzine and Benadryl are in the same drug class and should not be taken at the same time. 2. Otalgia of both ears - ICD9: 388.70, ICD10: H92.03 As needed OTC analgesia for temporomandibular joint pain. Damian Rivera MD documented in this encounter [facility] 11-19-2022 Miscellaneous Notes Left message for patient with results and recommendations.Katina Jay LPN COVID-19, influenza A, and influenza B PCR test are negative. Continue supportive therapies as discussed during visit. Follow-up with PCP if symptoms are not improving. Jr Gómez APRN.FLUORESCENT SOLUTION MIXER documented in this encounter [facility] 11-18-2022 Note HNO ID: [id number] Author: Mariaelena Arroyo APRN.OMAR Service: ? Author Type: Nurse Practitioner Type: Progress Notes Filed: 11/18/2022 8:56 AM Note Text: CC: Patient presents with: Nausea AND Vomiting: Nausea, vomiting, diarrhea, chills, fever, cough and ST x 3 days Patient was sick about 3 weeks ago and took 10 days of amoxicillin. Said it did not give much relief and 3 days ago started these symptoms but they are all new. HPI: Martita Joe is a 27 year old female who presents to the office with complaint of head congestion, cough, nonproductive, sore throat, sinus symptoms, and fever for 3 days. Symptoms are staying the same. Associated symptoms includes nausea, vomiting , and diarrhea. Denies ear pain and dyspnea. Treatments tried include nothing so far. with no relief of symptoms. Sick contacts: unknown. History of asthma, frequent episodes of bronchitis, chronic bronchitis, bronchiectasis or COPD: No Smoker: No Seasonal/environmental allergies: No The ROS is otherwise negative. The patient's pmh, medications, allergies, and past visits are reviewed. PHYSICAL EXAM: BP 112/64 Pulse 99 Temp 36.6 ?C (97.8 ?F) (Tympanic) Resp 18 Wt 92.5 kg (204 lb) LMP 10/18/2022 (Exact Date) SpO2 97% BMI 32.93 kg/m? General appearance: alert, cooperative, pleasant, in no acute distress Head: Normocephalic Eyes: EOM's intact, conjunctiva pink and moist, no icterus, sclera white, non-injected Ears: Right ear: External ear/canal- Normal, TM - clear with good landmarks. Left ear: External ear/canal- Normal, TM - clear with good landmarks Oropharynx:moderate erythema, without exudates present Heart: Negative. RRR without obvious murmur, gallop, or rubs. No ectopy. Lungs: clear to auscultation, without rales or wheeze, good air exchange PAST MEDICAL HISTORY Diagnosis Date Depression with anxiety 01/02/2014 PAST SURGICAL HISTORY Procedure Laterality Date NONE ALLERGIES Sulfa (Sulfonamide Antibiotics) and Zofran [Ondansetron Hcl (Pf)] MEDICATIONS hydrOXYzine HCl (ATARAX) 25 mg tablet Take 1-2 tablets by mouth every 6 hours as needed for anxiety. FLUoxetine (PROZAC) 20 mg capsule Take 1 capsule by mouth once daily. promethazine (PHENERGAN) 12.5 mg tablet Take 1 tablet by mouth every 6 hours as needed for up to 7 days. FAMILY HISTORY Problem Relation Age of Onset Arthritis Maternal Grandmother Diabetes Maternal Grandmother Hypertension Maternal Grandmother Lipids Maternal Grandmother Cancer Maternal Grandfather LYMPHOMA Hypertension Maternal Grandfather Cancer Maternal Aunt PANCREATIC Psychiatry Maternal Aunt MULTIPLE SUICIDE ATTEMPTS Social History Tobacco Use Smoking status: Every Day Packs/day: 0.50 Years: 4.00 Pack years: 2.00 Types: Cigarettes Smokeless tobacco: Never Substance Use Topics Alcohol use: Yes Comment: occassional wine cooler Drug use: No ASSESSMENT/PLAN: 1. Nausea - ICD9: 787.02, ICD10: R11.0 (primary diagnosis) - PROMETHAZINE 12.5 MG TABLET (will not take hydroxyzine with medication). 2. Sore throat - ICD9: 462, ICD10: J02.9 Denies swab for strep at this time. 3. URI, acute - ICD9: 465.9, ICD10: J06.9 - COVID WITH FLUA+B, ROUTINE OTC medication for symptoms management as well. Prescription instructions reviewed with patient as applicable. Potential red flag symptoms discussed with the patient. Reviewed appropriate action plan to take if red flag symptoms occur. Patient agreeable to treatment plan. Mariaelena Arroyo APRN.[facility] [place] 11-18-2022 History of Presen t illness Narrative CC: Patient presents with: Nausea & Vomiting: Nausea, vomiting, diarrhea, chills, fever, cough and ST x 3 days Patient was sick about 3 weeks ago and took 10 days of amoxicillin. Said it did not give much relief and 3 days ago started these symptoms but they are all new. HPI: Marttia Joe is a 27 year old female who presents to the office with complaint of head congestion, cough, nonproductive, sore throat, sinus symptoms, and fever for 3 days. Symptoms are staying the same. Associated symptoms includes nausea, vomiting , and diarrhea. Denies ear pain and dyspnea. Treatments tried include nothing so far. with no relief of symptoms. Sick contacts: unknown. History of asthma, frequent episodes of bronchitis, chronic bronchitis, bronchiectasis or COPD: No Smoker: No Seasonal/environmental allergies: No The ROS is otherwise negative. The patient's pmh, medications, allergies, and past visits are reviewed. PHYSICAL EXAM: BP 112/64 Pulse 99 Temp 36.6 C (97.8 F) (Tympanic) Resp 18 Wt 92.5 kg (204 lb) LMP 10/18/2022 (Exact Date) SpO2 97% BMI 32.93 kg/m General appearance: alert, cooperative, pleasant, in no acute distress Head: Normocephalic Eyes: EOM's intact, conjunctiva pink and moist, no icterus, sclera white, non-injected Ears: Right ear: External ear/canal- Normal, TM - clear with good landmarks. Left ear: External ear/canal- Normal, TM - clear with good landmarks Oropharynx:moderate erythema, without exudates present Heart: Negative. RRR without obvious murmur, gallop, or rubs. No ectopy. Lungs: clear to auscultation, without rales or wheeze, good air exchange PAST MEDICAL HISTORY Diagnosis Date Depression with anxiety 01/02/2014 PAST SURGICAL HISTORY Procedure Laterality Date NONE ALLERGIES Sulfa (Sulfonamide Antibiotics) and Zofran [Ondansetron Hcl (Pf)] MEDICATIONS hydrOXYzine HCl (ATARAX) 25 mg tablet Take 1-2 tablets by mouth every 6 hours as needed for anxiety. FLUoxetine (PROZAC) 20 mg capsule Take 1 capsule by mouth once daily. promethazine (PHENERGAN) 12.5 mg tablet Take 1 tablet by mouth every 6 hours as needed for up to 7 days. FAMILY HISTORY Problem Relation Age of Onset Arthritis Maternal Grandmother Diabetes Maternal Grandmother Hypertension Maternal Grandmother Lipids Maternal Grandmother Cancer Maternal Grandfather LYMPHOMA Hypertension Maternal Grandfather Cancer Maternal Aunt PANCREATIC Psychiatry Maternal Aunt MULTIPLE SUICIDE ATTEMPTS Social History Tobacco Use Smoking status: Every Day Packs/day: 0.50 Years: 4.00 Pack years: 2.00 Types: Cigarettes Smokeless tobacco: Never Substance Use Topics Alcohol use: Yes Comment: occassional wine cooler Drug use: No ASSESSMENT/PLAN: 1. Nausea - ICD9: 787.02, ICD10: R11.0 (primary diagnosis) - PROMETHAZINE 12.5 MG TABLET (will not take hydroxyzine with medication). 2. Sore throat - ICD9: 462, ICD10: J02.9 Denies swab for strep at this time. 3. URI, acute - ICD9: 465.9, ICD10: J06.9 - COVID WITH FLUA+B, ROUTINE OTC medication for symptoms management as well. Prescription instructions reviewed with patient as applicable. Potential red flag symptoms discussed with the patient. Reviewed appropriate action plan to take if red flag symptoms occur. Patient agreeable to treatment plan. Mariaelena Arroyo APRN.[employer] documented in this encounter [facility] [place] 10-29-2022 Note HNO ID: [id number] Author: Mayda Morgan MD Service: ? Author Type: Physician Type: Progress Notes Filed: 10/29/2022 8:37 AM Note Text: Patient presents with: Depression Anxiety URI: Cough, congestion X 1.5-2 wks ago HPI: Patient presents today for office visit for yearly follow up with multiple concerns. Complaints today of B/L ear pain X 3 days. Has been sick with an URI for the past 1.5-2 wks with cough and congestion. Drainage is clear. Some sinus pressure. Feels like it is in her head Sore throat from coughing. Cough is nonproductive No fever Did not do covid. Would like to discuss restarting antidepressants. Has been on Citalopram in the past. Stopped in November of 2021. Was doing well on that one. Had not been taking. Is doing counseling. Emotionally not well. When asked how she's feeling she responded with Oh I hate life . Loss of interest in many things. Used to be very into reading books and crafting. States has not done anything in 6 months. Has 4 children at home. No suicidal ideation. Has a near one year old at home. Is bottle feeding. Not sleeping well. Has a near one year old at home. Has severe anxiety. Too much noise bothers her, clutter, small spaces and driving on the highway causes her to become very overwhelmed and anxious. Has been on Hydroxyzine in the past. Denies chest pain. Has some shortness of breath since covid infection from 04/2022. MEDICATIONS: No current outpatient medications on file. No current facility-administered medications for this visit. ALLERGIES: ALLERGIES Allergen Reactions Sulfa (Sulfonamide * Zofran [Ondansetron* Vomiting PAST MEDICAL HISTORY Diagnosis Date Depression with anxiety 01/02/2014 PAST SURGICAL HISTORY Procedure Laterality Date NONE FAMILY HISTORY Problem Relation Age of Onset Arthritis Maternal Grandmother Diabetes Maternal Grandmother Hypertension Maternal Grandmother Lipids Maternal Grandmother Cancer Maternal Grandfather LYMPHOMA Hypertension Maternal Grandfather Cancer Maternal Aunt PANCREATIC Psychiatry Maternal Aunt MULTIPLE SUICIDE ATTEMPTS Social History Tobacco Use Smoking status: Every Day Packs/day: 0.50 Years: 4.00 Pack years: 2.00 Types: Cigarettes Smokeless tobacco: Never Substance Use Topics Alcohol use: Yes Comment: occassional wine cooler Drug use: No Discussed tobacco cessation, including risks of continued use. Offered assistance to help quit if patient desires. Reviewed current medications, allergies, past medical history, surgical history, family history and social history today. REVIEW OF SYSTEMS All other reviewed and negative other than HPI. HEALTH MAINTENANCE: Reviewed health maintenance issues today and recommended the following in detail. COVID-19 VACCINE(1) Never done PNEUMOCOCCAL(1 - PCV) Never done INFLUENZA(1) due on 05/29/2022 VITALS: BP 104/66 Pulse 105 Temp 36.8 ?C (98.3 ?F) Ht 167.6 cm (5' 6 ) Wt 92.1 kg (203 lb) LMP 10/18/2022 (Exact Date) SpO2 97% BMI 32.77 kg/m? Last 4 Encounter Wt Readings: Date: Wt: 05/20/2022 89.8 kg (198 lb) 05/04/2022 90.1 kg (198 lb 9.6 oz) 11/19/2021 97.1 kg (214 lb) 10/22/2021 97.1 kg (214 lb) PHYSICAL EXAMINATION: General appearance: Well appearing, alert, in no acute distress, well-hydrated, well nourished. Skin: Skin color, texture, turgor normal, no suspicious rashes or lesions Head: Normocephalic, no masses, lesions, tenderness or abnormalities Eyes: Anicteric sclera. Pupils are equally round and reactive to light. Extraocular movements are intact. Ears: External ears normal, canals clear Nose/Sinuses: Nares normal, septum midline, mucosa normal, no drainage or sinus tenderness Oropharynx: Lips, mucosa, and tongue normal, teeth and gums normal, oropharynx normal Neck: Negative findings: no adenopathy Lungs: CTA Heart: RRR without murmur, gallop, or rubs. No ectopy Abdomen: Normal abdominal exam, Abdomen soft, non-tender. Bowel sounds normal. No masses, organomegaly PSYCH:Affect normal. Normal speech. Normal eye contact ASSESSMENT/PLAN: 1. Bacterial sinusitis - ICD9: 473.9, 041.9, ICD10: J32.9, B96.89 (primary diagnosis) - Supportive care with plenty of fluids, rest, and analgesia prn. - Follow up in one week if symptoms persist or worsen. - hold on covid/flu testing since 2 weeks out - AMOXICILLIN 875 MG TABLET 2. Anxiety with depression - ICD9: 300.4, ICD10: F41.8 - wants to have vistaril prn. Discussed interactions with celexa and vistaril. Will try prozac. Discussed risks and benefits of new medication with the patient. Advised them to call if any side effects or questions. - HYDROXYZINE HCL 25 MG TABLET - FLUOXETINE 20 MG CAPSULE Mayda MARADIAGA in six weeks. [facility] 10-29-2022 History of Presen t illness Narrative Patient presents with: Depression Anxiety URI: Cough, congestion X 1.5-2 wks ago HPI: Patient presents today for office visit for yearly follow up with multiple concerns. Complaints today of B/L ear pain X 3 days. Has been sick with an URI for the past 1.5-2 wks with cough and congestion. Drainage is clear. Some sinus pressure. Feels like it is in her head Sore throat from coughing. Cough is nonproductive No fever Did not do covid. Would like to discuss restarting antidepressants. Has been on Citalopram in the past. Stopped in November of 2021. Was doing well on that one. Had not been taking. Is doing counseling. Emotionally not well. When asked how she's feeling she responded with Oh I hate life . Loss of interest in many things. Used to be very into reading books and crafting. States has not done anything in 6 months. Has 4 children at home. No suicidal ideation. Has a near one year old at home. Is bottle feeding. Not sleeping well. Has a near one year old at home. Has severe anxiety. Too much noise bothers her, clutter, small spaces and driving on the highway causes her to become very overwhelmed and anxious. Has been on Hydroxyzine in the past. Denies chest pain. Has some shortness of breath since covid infection from 04/2022. MEDICATIONS: No current outpatient medications on file. No current facility-administered medications for this visit. ALLERGIES: ALLERGIES Allergen Reactions Sulfa (Sulfonamide * Zofran [Ondansetron* Vomiting PAST MEDICAL HISTORY Diagnosis Date Depression with anxiety 01/02/2014 PAST SURGICAL HISTORY Procedure Laterality Date NONE FAMILY HISTORY Problem Relation Age of Onset Arthritis Maternal Grandmother Diabetes Maternal Grandmother Hypertension Maternal Grandmother Lipids Maternal Grandmother Cancer Maternal Grandfather LYMPHOMA Hypertension Maternal Grandfather Cancer Maternal Aunt PANCREATIC Psychiatry Maternal Aunt MULTIPLE SUICIDE ATTEMPTS Social History Tobacco Use Smoking status: Every Day Packs/day: 0.50 Years: 4.00 Pack years: 2.00 Types: Cigarettes Smokeless tobacco: Never Substance Use Topics Alcohol use: Yes Comment: occassional wine cooler Drug use: No Discussed tobacco cessation, including risks of continued use. Offered assistance to help quit if patient desires. Reviewed current medications, allergies, past medical history, surgical history, family history and social history today. REVIEW OF SYSTEMS All other reviewed and negative other than HPI. HEALTH MAINTENANCE: Reviewed health maintenance issues today and recommended the following in detail. COVID-19 VACCINE(1) Never done PNEUMOCOCCAL(1 - PCV) Never done INFLUENZA(1) due on 05/29/2022 VITALS: BP 104/66 Pulse 105 Temp 36.8 C (98.3 F) Ht 167.6 cm (5' 6 ) Wt 92.1 kg (203 lb) LMP 10/18/2022 (Exact Date) SpO2 97% BMI 32.77 kg/m Last 4 Encounter Wt Readings: Date: Wt: 05/20/2022 89.8 kg (198 lb) 05/04/2022 90.1 kg (198 lb 9.6 oz) 11/19/2021 97.1 kg (214 lb) 10/22/2021 97.1 kg (214 lb) PHYSICAL EXAMINATION: General appearance: Well appearing, alert, in no acute distress, well-hydrated, well nourished. Skin: Skin color, texture, turgor normal, no suspicious rashes or lesions Head: Normocephalic, no masses, lesions, tenderness or abnormalities Eyes: Anicteric sclera. Pupils are equally round and reactive to light. Extraocular movements are intact. Ears: External ears normal, canals clear Nose/Sinuses: Nares normal, septum midline, mucosa normal, no drainage or sinus tenderness Oropharynx: Lips, mucosa, and tongue normal, teeth and gums normal, oropharynx normal Neck: Negative findings: no adenopathy Lungs: CTA Heart: RRR without murmur, gallop, or rubs. No ectopy Abdomen: Normal abdominal exam, Abdomen soft, non-tender. Bowel sounds normal. No masses, organomegaly PSYCH:Affect normal. Normal speech. Normal eye contact ASSESSMENT/PLAN: 1. Bacterial sinusitis - ICD9: 473.9, 041.9, ICD10: J32.9, B96.89 (primary diagnosis) - Supportive care with plenty of fluids, rest, and analgesia prn. - Follow up in one week if symptoms persist or worsen. - hold on covid/flu testing since 2 weeks out - AMOXICILLIN 875 MG TABLET 2. Anxiety with depression - ICD9: 300.4, ICD10: F41.8 - wants to have vistaril prn. Discussed interactions with celexa and vistaril. Will try prozac. Discussed risks and benefits of new medication with the patient. Advised them to call if any side effects or questions. - HYDROXYZINE HCL 25 MG TABLET - FLUOXETINE 20 MG CAPSULE Mayda Morgan RTO in six weeks. documented in this encounter [facility] 05-20-2022 Note HNO ID: [id number] Author: Jr Gómez APRN.[employer] Service: ? Author Type: Nurse Practitioner Type: Progress Notes Filed: 05/20/2022 11:42 AM Note Text: Subjective HPI Nontoxic-appearing female presents urgent care chief complaint COVID-19 concerns. Duration of symptoms 4 days. Associated symptoms body aches chills cough nausea vomiting headache fatigue. 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 Presents today for COVID-19 testing. Has not use any OTC medications. States she did vomit 3 times today. No blood in vomit. Denies any fevers productive cough chest pain shortness of breath pleuritic pain abdominal pain change in bowel or bladder habits. Past medical history prescription medication use and allergies reviewed. Patient denies chance of she is not breast-feeding. .Patient presents with: Cough: Nasal congestion, N/V, Jackson x4 days PAST MEDICAL HISTORY Diagnosis Date Depression with anxiety 01/02/2014 PAST SURGICAL HISTORY Procedure Laterality Date NONE ALLERGIES Sulfa (Sulfonamide Antibiotics) and Zofran [Ondansetron Hcl (Pf)] MEDICATIONS citalopram (CELEXA) 20 mg tablet Take 40 mg by mouth. famotidine (PEPCID) 20 mg tablet Take 20 mg by mouth twice daily. acetaminophen 325 mg cap Take by mouth as directed. guaiFENesin (MUCINEX) 600 mg 12 hr tablet Take 1 tablet by mouth twice daily. (Patient not taking: Reported on 05/04/2022) meclizine (ANTIVERT) 25 mg tab Take 25 mg by mouth every 6 hours. (Patient not taking: Reported on 05/04/2022) promethazine (PHENERGAN) 12.5 mg tablet TAKE 1 TABLET BY MOUTH THREE TIMES DAILY NEEDED FOR NAUSEA and FOR VOMITING (Patient not taking: Reported on 11/19/2021) sertraline (ZOLOFT) 50 mg tablet Take 50 mg by mouth once daily. (Patient not taking: Reported on 10/22/2021 ) VIT 14-IRON FUM-FOLIC ORAL Take by mouth. (Patient not taking: Reported on 05/04/2022) hydrOXYzine HCl (ATARAX) 25 mg tablet Take 1-2 tablets by mouth every 6 hours as needed for Anxiety. (Patient not taking: Reported on 05/20/2022) FAMILY HISTORY Problem Relation Age of Onset Arthritis Maternal Grandmother Diabetes Maternal Grandmother Hypertension Maternal Grandmother Lipids Maternal Grandmother Cancer Maternal Grandfather LYMPHOMA Hypertension Maternal Grandfather Cancer Maternal Aunt PANCREATIC Psychiatry Maternal Aunt MULTIPLE SUICIDE ATTEMPTS Social History Tobacco Use Smoking status: Every Day Packs/day: 0.50 Years: 4.00 Pack years: 2.00 Types: Cigarettes Smokeless tobacco: Never Substance Use Topics Alcohol use: Yes Comment: occassional wine cooler Drug use: No BP 124/80 Pulse 94 Temp 36.3 ?C (97.4 ?F) Resp 18 Wt 89.8 kg (198 lb) LMP 05/16/2022 (Exact Date) SpO2 97% BMI 31.96 kg/m? Review of Systems Constitutional: Positive for chills and malaise/fatigue. Negative for fever. HENT: Positive for congestion. Negative for ear discharge, ear pain, sinus pain and sore throat. Eyes: Negative for blurred vision, pain, discharge and redness. Respiratory: Positive for cough. Negative for hemoptysis, sputum production, shortness of breath, wheezing and stridor. Cardiovascular: Negative for chest pain. Gastrointestinal: Positive for nausea and vomiting. Negative for abdominal pain and diarrhea. Musculoskeletal: Positive for myalgias. Skin: Negative for itching and rash. Neurological: Positive for headaches. Negative for dizziness. Objective Physical Exam Constitutional: General: She is not in acute distress. Appearance: She is not diaphoretic. HENT: Head: Normocephalic. Nose: Congestion present. Mouth/Throat: Mouth: Mucous membranes are moist. Pharynx: Oropharynx is clear. No oropharyngeal exudate or posterior oropharyngeal erythema. Eyes: Conjunctiva/sclera: Conjunctivae normal. Pupils: Pupils are equal, round, and reactive to light. Cardiovascular: Rate and Rhythm: Normal rate and regular rhythm. Heart sounds: Normal heart sounds. Pulmonary: Effort: Pulmonary effort is normal. No tachypnea, accessory muscle usage or respiratory distress. Breath sounds: Normal breath sounds. No stridor. Abdominal: General: There is no distension. Palpations: Abdomen is soft. Tenderness: There is no abdominal tenderness. There is no right CVA tenderness, left CVA tenderness, guarding or rebound. Musculoskeletal: Cervical back: Normal range of motion and neck supple. No rigidity or tenderness. Lymphadenopathy: Cervical: No cervical adenopathy. Skin: General: Skin is warm and dry. Neurological: Mental Status: She is alert and oriented to person, place, and time. ASSESSMENT/PLAN: 1. Viral illness - ICD9: 079.99, ICD10: B34.9 - COVID WITH FLUA+B, ROUTINE Suspicious of viral illness. COVID-19 test ordered. Results pending. Alternative diagnosis discussed. Phenergan prescribed as needed for nausea vo (more content not included)... [facility] 05-20-2022 History of Presen t illness Narrative Subjective HPI Nontoxic-appearing female presents urgent care chief complaint COVID-19 concerns. Duration of symptoms 4 days. Associated symptoms body aches chills cough nausea vomiting headache fatigue. 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 Presents today for COVID-19 testing. Has not use any OTC medications. States she did vomit 3 times today. No blood in vomit. Denies any fevers productive cough chest pain shortness of breath pleuritic pain abdominal pain change in bowel or bladder habits. Past medical history prescription medication use and allergies reviewed. Patient denies chance of she is not breast-feeding. .Patient presents with: Cough: Nasal congestion, N/V, Jackson x4 days PAST MEDICAL HISTORY Diagnosis Date Depression with anxiety 01/02/2014 PAST SURGICAL HISTORY Procedure Laterality Date NONE ALLERGIES Sulfa (Sulfonamide Antibiotics) and Zofran [Ondansetron Hcl (Pf)] MEDICATIONS citalopram (CELEXA) 20 mg tablet Take 40 mg by mouth. famotidine (PEPCID) 20 mg tablet Take 20 mg by mouth twice daily. acetaminophen 325 mg cap Take by mouth as directed. guaiFENesin (MUCINEX) 600 mg 12 hr tablet Take 1 tablet by mouth twice daily. (Patient not taking: Reported on 05/04/2022) meclizine (ANTIVERT) 25 mg tab Take 25 mg by mouth every 6 hours. (Patient not taking: Reported on 05/04/2022) promethazine (PHENERGAN) 12.5 mg tablet TAKE 1 TABLET BY MOUTH THREE TIMES DAILY NEEDED FOR NAUSEA and FOR VOMITING (Patient not taking: Reported on 11/19/2021) sertraline (ZOLOFT) 50 mg tablet Take 50 mg by mouth once daily. (Patient not taking: Reported on 10/22/2021 ) VIT 14-IRON FUM-FOLIC ORAL Take by mouth. (Patient not taking: Reported on 05/04/2022) hydrOXYzine HCl (ATARAX) 25 mg tablet Take 1-2 tablets by mouth every 6 hours as needed for Anxiety. (Patient not taking: Reported on 05/20/2022) FAMILY HISTORY Problem Relation Age of Onset Arthritis Maternal Grandmother Diabetes Maternal Grandmother Hypertension Maternal Grandmother Lipids Maternal Grandmother Cancer Maternal Grandfather LYMPHOMA Hypertension Maternal Grandfather Cancer Maternal Aunt PANCREATIC Psychiatry Maternal Aunt MULTIPLE SUICIDE ATTEMPTS Social History Tobacco Use Smoking status: Every Day Packs/day: 0.50 Years: 4.00 Pack years: 2.00 Types: Cigarettes Smokeless tobacco: Never Substance Use Topics Alcohol use: Yes Comment: occassional wine cooler Drug use: No BP 124/80 Pulse 94 Temp 36.3 C (97.4 F) Resp 18 Wt 89.8 kg (198 lb) LMP 05/16/2022 (Exact Date) SpO2 97% BMI 31.96 kg/m Review of Systems Constitutional: Positive for chills and malaise/fatigue. Negative for fever. HENT: Positive for congestion. Negative for ear discharge, ear pain, sinus pain and sore throat. Eyes: Negative for blurred vision, pain, discharge and redness. Respiratory: Positive for cough. Negative for hemoptysis, sputum production, shortness of breath, wheezing and stridor. Cardiovascular: Negative for chest pain. Gastrointestinal: Positive for nausea and vomiting. Negative for abdominal pain and diarrhea. Musculoskeletal: Positive for myalgias. Skin: Negative for itching and rash. Neurological: Positive for headaches. Negative for dizziness. Objective Physical Exam Constitutional: General: She is not in acute distress. Appearance: She is not diaphoretic. HENT: Head: Normocephalic. Nose: Congestion present. Mouth/Throat: Mouth: Mucous membranes are moist. Pharynx: Oropharynx is clear. No oropharyngeal exudate or posterior oropharyngeal erythema. Eyes: Conjunctiva/sclera: Conjunctivae normal. Pupils: Pupils are equal, round, and reactive to light. Cardiovascular: Rate and Rhythm: Normal rate and regular rhythm. Heart sounds: Normal heart sounds. Pulmonary: Effort: Pulmonary effort is normal. No tachypnea, accessory muscle usage or respiratory distress. Breath sounds: Normal breath sounds. No stridor. Abdominal: General: There is no distension. Palpations: Abdomen is soft. Tenderness: There is no abdominal tenderness. There is no right CVA tenderness, left CVA tenderness, guarding or rebound. Musculoskeletal: Cervical back: Normal range of motion and neck supple. No rigidity or tenderness. Lymphadenopathy: Cervical: No cervical adenopathy. Skin: General: Skin is warm and dry. Neurological: Mental Status: She is alert and oriented to person, place, and time. ASSESSMENT/PLAN: 1. Viral illness - ICD9: 079.99, ICD10: B34.9 - COVID WITH FLUA+B, ROUTINE Suspicious of viral illness. COVID-19 test ordered. Results pending. Alternative diagnosis discussed. Phenergan prescribed as needed for nausea vomiting. Has tolerated this medication in the past. Patient was educated on supportive therapies. Patient will follow up with primary care provider as needed. Patient was instructed to immediately proceed to emergency room for any new, worsening, or symptoms lasting longer than anticipated. The patient's clinical presentation is otherwise unremarkable at this time. Based on exam and clinical finding, the patient is stable for discharge. Plan of care was discussed with patient. Patient verbalizes understanding and agrees to plan of care. This note was generated using [employer] software. It may contain errors in wording, punctuation, or spelling. Jr Gómez APRN.[facility] documented in [facility] [facility] 05-20-2022 Instructions Jr Gómez APRN.CNP - 05/20/2022 11:04 AM EDT How to Manage Common Symptoms Associated with COVID for Adults Fever- Fever is a temperature over 100.4 F and can occur when the body is fighting an infection. To help treat a fever: Drink plenty of fluids and stay well hydrated. Eat small amounts of easy to digest food. Rest. Your body needs rest to recover, but getting up and moving around the house frequently is a good idea. You should try to continue doing your normal daily activities (bathing, toileting, grooming, cooking), though you will probably feel tired, and need to rest often. Avoid any heavy activity or exercise, as this will increase your body temperature. Dress in light clothing and stay covered in a light sheet. Keep the room temperature cool. Take a slightly warm (not cold or cool) bath, or apply damp washcloths to the forehead and wrists. Cough- Cough is a common symptom associated with COVID and can be bothersome. To help treat a cough: Stay well hydrated. Try warm water or tea with lemon and/or honey to help soothe the cough. Use a humidifier to add moisture to the air. Try a product with menthol, like a cough drop or a rub for your chest such as Vicks, which can help reduce cough. Try cough drops. Avoid smoking and other strong odors or perfumes. Try breathing exercises to keep your lungs open and clear. Take a big deep breath through your nose and hold for 5 seconds before slowly releasing. Repeat frequently, while you are awake. Congestion- Runny nose or nasal congestion can occur with COVID. Treatment can help relieve symptoms: Try OTC nasal saline spray, or nasal saline rinse to relieve mucus congestion. Nasal strips can help keep nasal passages open, to increase airflow. Elevating your head with an extra pillow in bed can help reduce congestion. Using a humidifier can increase moisture in the air, and make breathing easier. Sore Throat- Another common symptom with COVID, can be managed at home by: Stay well hydrated. Gargle with salt water - mix teaspoon salt with 1 cup of warm water and gargle. This helps to loosen mucus in the back of the throat and may reduce discomfort. Try ice chips, popsicles or lozenges to soothe the throat. Nausea/Vomiting/Diarrhea- These are common symptoms, and staying hydrated is most important. If you are nauseous or vomiting, start with small sips of water every 10-15 minutes and increase as tolerated. You can try sucking an ice cube too. If tolerating, you can try pedialyte or Gatorade, or flat sprite or ramon-billy. Start slowly and increase as you are able to. Instead of meals, try smaller, more frequent snacks. Try eating bland foods like crackers, toast, rice, and applesauce. Avoid spicy, greasy or fried foods and dairy containing foods. Even if you aren't feeling hungry due to lack of smell or taste, it is important to try to take in some food when you are able. After drinking and eating, rest in an upright position for up to two hours as needed to help decrease nauseous feelings. Try closing your eyes, avoid moving and watching TV. Avoid strong odors that can make you feel more nauseated. When to seek emergency medical attention Look for emergency warning signs for COVID-19. If having any of these symptoms, seek emergency medical care immediately: Trouble breathing Persistent pain or pressure in the chest New confusion Inability to wake or stay awake Bluish lips or face *This list is not all possible symptoms. Please call your medical provider for any other symptoms that are severe or concerning to you. documented in this encounter [facility] 05-05-2022 Miscellaneous Notes Phone call placed patient advised (see prior provider encounter) Patient verbalized understanding, requested copy results to be placed in [facility] for pickup Morena Sequeira LPN Please notify of negative covid test. If develop any symptoms return to clinic for retesting Ansley Dunbar APRN.CNP documented in this encounter [facility] 05-04-2022 Note HNO ID: [id number] Author: Ansley Dunbar APRN.CNP Service: ? Author Type: Nurse Practitioner Type: Progress Notes Filed: 05/04/2022 10:44 AM Note Text: Subjective The history is provided by the patient and a relative. HPI Martita Joe is a 27 year old female who presents today for CC of desires for covid testing due to possible exposure. She denies any symptoms of covid. Feels well. Exposure in past 5 days BP 110/64 Pulse 95 Temp 36.4 ?C (97.6 ?F) (Tympanic) Resp 16 Wt 90.1 kg (198 lb 9.6 oz) LMP 10/17/2019 (LMP Unknown) SpO2 97% BMI 32.05 kg/m? Social History Tobacco Use Smoking status: Every Day Packs/day: 0.50 Years: 4.00 Pack years: 2.00 Types: Cigarettes Smokeless tobacco: Never Substance Use Topics Alcohol use: Yes Comment: occassional wine cooler Drug use: No PAST MEDICAL HISTORY Diagnosis Date Depression with anxiety 01/02/2014 I have confirmed and edited as necessary, the [facility] Review of Systems Constitutional: Negative for chills, fever and malaise/fatigue. HENT: Negative for congestion, ear pain, sinus pain and sore throat. Respiratory: Negative for cough, sputum production, shortness of breath and wheezing. Cardiovascular: Negative for chest pain. Gastrointestinal: Negative for abdominal pain, diarrhea, nausea and vomiting. Musculoskeletal: Negative for myalgias. Skin: Negative for itching and rash. Neurological: Negative for headaches. All other systems reviewed and are negative. Objective Physical Exam Vitals and nursing note reviewed. Pulmonary: Effort: Pulmonary effort is normal. Skin: General: Skin is warm and dry. Neurological: Mental Status: She is alert and oriented to person, place, and time. Psychiatric: Mood and Affect: Affect normal. ASSESSMENT/PLAN: 1. Exposure to COVID-19 virus - ICD9: V01.79, ICD10: Z20.822 Testing ordered Home isolation if develop symptoms Return for testing if negative test and then develop symptoms. Notified in 24-48 hours with results, available on [employer] - ASYMPTOMATIC ELECTIVE COVID-19 Ansley Dunbar APRN.CNP [facility] 05-04-2022 Instructions Ansley Dunbar APRN.CNP - 05/04/2022 10:42 AM EDT Testing ordered Home isolation if develop symptoms Return for testing if negative test and then develop symptoms. Notified in 24-48 hours with results, available on [employer] documented in this encounter [facility] 05-04-2022 History of Presen t illness Narrative Subjective The history is provided by the patient and a relative. HPI Martita Joe is a 27 year old female who presents today for CC of desires for covid testing due to possible exposure. She denies any symptoms of covid. Feels well. Exposure in past 5 days BP 110/64 Pulse 95 Temp 36.4 C (97.6 F) (Tympanic) Resp 16 Wt 90.1 kg (198 lb 9.6 oz) LMP 10/17/2019 (LMP Unknown) SpO2 97% BMI 32.05 kg/m Social History Tobacco Use Smoking status: Every Day Packs/day: 0.50 Years: 4.00 Pack years: 2.00 Types: Cigarettes Smokeless tobacco: Never Substance Use Topics Alcohol use: Yes Comment: occassional wine cooler Drug use: No PAST MEDICAL HISTORY Diagnosis Date Depression with anxiety 01/02/2014 I have confirmed and edited as necessary, the [facility] Review of Systems Constitutional: Negative for chills, fever and malaise/fatigue. HENT: Negative for congestion, ear pain, sinus pain and sore throat. Respiratory: Negative for cough, sputum production, shortness of breath and wheezing. Cardiovascular: Negative for chest pain. Gastrointestinal: Negative for abdominal pain, diarrhea, nausea and vomiting. Musculoskeletal: Negative for myalgias. Skin: Negative for itching and rash. Neurological: Negative for headaches. All other systems reviewed and are negative. Objective Physical Exam Vitals and nursing note reviewed. Pulmonary: Effort: Pulmonary effort is normal. Skin: General: Skin is warm and dry. Neurological: Mental Status: She is alert and oriented to person, place, and time. Psychiatric: Mood and Affect: Affect normal. ASSESSMENT/PLAN: 1. Exposure to COVID-19 virus - ICD9: V01.79, ICD10: Z20.822 Testing ordered Home isolation if develop symptoms Return for testing if negative test and then develop symptoms. Notified in 24-48 hours with results, [facility] E[facility] COVID-19 Ansley Dunbar APRN.OMAR documented in this encounter [facility] documented as of this encounter (statuses as of 05/04/2022) [facility]07-16-2013 History of Past illness Narrative* Problem Noted Date Resolved Date Tobacco use in 04/12/2013 014 Overview: 04/11/2013Pt smokes one half pack a day of cigarettes, down from one pack per day. Discussed risks of smoking during . Advised pt to quit. TKRN Pelvic pain in 04/12/2013 014 Overview: 04/12/2013 Patient has noted lower back pain for the past 3 weeks that feels like my period might start . She states it happens 1-2 times a day. She denies any dysuria, abnormal discharge or bleeding. Discussed with Dr. Dowd and she ordered an ultrasound .Patient is to call/come in if the pain increases, the development of bleeding, or PRN problems.TKRN Molluscum contagiosum 11/21/2009 05/21/2016 Routine infant or child health check 07/22/2007 12/30/2013 documented as of this encounter (statuses as of 05/05/2022) [facility] History of Past illness Narrative* Problem Noted Date Resolved Date Tobacco use in 04/12/2013 014 Overview: 04/11/2013Pt smokes one half pack a day of cigarettes, down from one pack per day. Discussed risks of smoking during . Advised pt to quit. TKRN Pelvic pain in 04/12/2013 014 Overview: 04/12/2013 Patient has noted lower back pain for the past 3 weeks that feels like my period might start . She states it happens 1-2 times a day. She denies any dysuria, abnormal discharge or bleeding. Discussed with Dr. Dowd and she ordered an ultrasound .Patient is to call/come in if the pain increases, the development of bleeding, or PRN problems.TKRN Molluscum contagiosum 11/21/2009 05/21/2016 Routine infant or child health check 07/22/2007 12/30/2013 documented as of this encounter (statuses as of 05/20/2022) [facility] History of Past illness Narrative* Problem Noted Date Resolved Date Tobacco use in 04/12/2013 014 Overview: 04/11/2013Pt smokes one half pack a day of cigarettes, down from one pack per day. Discussed risks of smoking during . Advised pt to quit. TKRN Pelvic pain in 04/12/2013 014 Overview: 04/12/2013 Patient has noted lower back pain for the past 3 weeks that feels like my period might start . She states it happens 1-2 times a day. She denies any dysuria, abnormal discharge or bleeding. Discussed with Dr. Dowd and she ordered an ultrasound .Patient is to call/come in if the pain increases, the development of bleeding, or PRN problems.TKRN Molluscum contagiosum 11/21/2009 05/21/2016 Routine infant or child health check 07/22/2007 12/30/2013 documented as of this encounter (statuses as of 10/29/2022) [facility] History of Past illness Narrative* Problem Noted Date Resolved Date Tobacco use in 04/12/2013 014 Overview: 04/11/2013Pt smokes one half pack a day of cigarettes, down from one pack per day. Discussed risks of smoking during . Advised pt to quit. TKRN Pelvic pain in 04/12/2013 014 Overview: 04/12/2013 Patient has noted lower back pain for the past 3 weeks that feels like my period might start . She states it happens 1-2 times a day. She denies any dysuria, abnormal discharge or bleeding. Discussed with Dr. Dowd and she ordered an ultrasound .Patient is to call/come in if the pain increases, the development of bleeding, or PRN problems.TKRN Molluscum contagiosum 11/21/2009 05/21/2016 Routine infant or child health check 07/22/2007 12/30/2013 documented as of this encounter (statuses as of 11/18/2022) [facility] History of Past illness Narrative* Problem Noted Date Resolved Date Tobacco use in 04/12/2013 014 Overview: 04/11/2013Pt smokes one half pack a day of cigarettes, down from one pack per day. Discussed risks of smoking during . Advised pt to quit. TKRN Pelvic pain in 04/12/2013 014 Overview: 04/12/2013 Patient has noted lower back pain for the past 3 weeks that feels like my period might start . She states it happens 1-2 times a day. She denies any dysuria, abnormal discharge or bleeding. Discussed with Dr. Dowd and she ordered an ultrasound .Patient is to call/come in if the pain increases, the development of bleeding, or PRN problems.TKRN Molluscum contagiosum 11/21/2009 05/21/2016 Routine infant or child health check 07/22/2007 12/30/2013 documented as of this encounter (statuses as of 11/19/2022) [facility] History of Past illness Narrative* Problem Noted Date Resolved Date Tobacco use in 04/12/2013 014 Overview: 04/11/2013Pt smokes one half pack a day of cigarettes, down from one pack per day. Discussed risks of smoking during . Advised pt to quit. TKRN Pelvic pain in 04/12/2013 014 Overview: 04/12/2013 Patient has noted lower back pain for the past 3 weeks that feels like my period might start . She states it happens 1-2 times a day. She denies any dysuria, abnormal discharge or bleeding. Discussed with Dr. Dowd and she ordered an ultrasound .Patient is to call/come in if the pain increases, the development of bleeding, or PRN problems.TKRN Molluscum contagiosum 11/21/2009 05/21/2016 Routine or child health check 07/22/2007 12/30/2013 documented as of this encounter (statuses as of 02/09/2023) [facility] Exposure to COVID-19 virus- Primary [facility] Diagnosis Viral illness- Primary Unspecified viral infection, in conditions classified elsewhere and of unspecified site [facility] [place] [facility] Diagnosis Bacterial sinusitis- Primary Unspecified sinusitis (chronic) Depression with anxiety Dysthymic disorder Anxiety with depression [facility] [place] [facility]* Diagnosis Nausea- Primary Nausea alone Sore throat Acute pharyngitis URI, acute Acute upper respiratory infections of unspecified site [facility] [place] [facility]* Diagnosis Gastroenteritis- Primary Other and unspecified noninfectious gastroenteritis and colitis Otalgia of both ears Otalgia, unspecified documented in this encounter [facility] Summary Purpose Family History No Family History Records FoundNo Family History Records Found Advance Directives No Advanced Directives Records FoundNo Advanced Directives Records Found Health Concerns Infection Onset Date Last Indicated Resolved Time COVID-19 Rule-Out 05/04/2022 05/04/2022 Infection Onset Date Last Indicated Resolved Time COVID-19 Rule-Out 11/18/2022 11/18/2022 Additional Source Comments INFORMATION SOURCE (unrecogn ized section and content) DATE CREATED AUTHOR AUTHOR'S ORGANIZ ATION 02/09/2023 [facility] Source Comments (unrecognize d section and content) In the event this informatio n is protected by the Federal Confidentiality of Alcohol and Drug Abuse Patient Records regulations: The Federal rules restrict any use of the information to criminally investigate or prosecute any alcohol or drug abuse patient.[facility] event this information is protected by the Federal Confidentiality of Alcohol and Drug Abuse Patient Records regulations: The Federal rules restrict any use of the information to criminally investigate or prosecute any alcohol or drug abuse patient.[facility] event this information is protected by the Federal Confidentiality of Alcohol and Drug Abuse Patient Records regulations: The Federal rules restrict any use of the information to criminally investigate or prosecute any alcohol or drug abuse patient.[facility] event this information is protected by the Federal Confidentiality of Alcohol and Drug Abuse Patient Records regulations: The Federal rules restrict any use of the information to criminally investigate or prosecute any alcohol or drug abuse patient.[facility] event this information is protected by the Federal Confidentiality of Alcohol and Drug Abuse Patient Records regulations: The Federal rules restrict any use of the information to criminally investigate or prosecute any alcohol or drug abuse patient.[facility] event this information is protected by the Federal Confidentiality of Alcohol and Drug Abuse Patient Records regulations: The Federal rules restrict any use of the information to criminally investigate or prosecute any alcohol or drug abuse patient.[facility] [place] event this information is protected by the Federal Confidentiality of Alcohol and Drug Abuse Patient Records regulations: The Federal rules restrict any use of the information to criminally investigate or prosecute any alcohol or drug abuse patient.[facility] Reason for Visit (unrecogniz ed section and content) Reason Comments Results Reason Comments Cough Nasal congestion, N/ V, [place] x4 days Reason Comments Depression Anxiety URI Cough, congestion X 1.5-2 wks ago Reason Comments Nausea & Vomiting Nausea, vomiting, di arrhea, chills, fever, cough and ST x 3 days Reason Comments Nausea & Vomiting bilateral ear pain, left worse x 3 days Care Teams (unrecognized sec tion and content) [employer] Equipment Repairer Relationship Specialty Start Date End Date Mayda Morgan MD [address], [place] [id number] PCP - General Family Practice 07/03/21 [employer] Equipment Repairer Relationship Specialty Start Date End Date Mayda Morgan MD [address], [place] [id number] PCP - General Family Practice 07/03/21 [employer] Equipment Repairer Relationship Specialty Start Date End Date Mayda Morgan MD [address], [place] [phone] PCP - General Family Medicine 07/03/21 [employer] Equipment Repairer Relationship Specialty Start Date End Date Mayda Morgan MD [address], [place] [phone] PCP - General Family Medicine 07/03/21 [employer] Equipment Repairer Relationship Specialty Start Date End Date Mayda Morgan MD [address], [place] [id number] PCP - General Family Medicine 07/03/21 [employer]ather[employer] Equipment Repairer Relationship Specialty Start Date End Date Mayda Morgan MD [address] [facility] [place] [id number] PCP - General Family Medicine 07/03/21 FOR RECORDS PERTAINING TO PATIENTS WHO ARE OR HAVE BEEN ENROLLED IN A CHEMICAL DEPENDENCY/SUBSTANCEABUSE PROGRAM, SOME INFORMATION MAY BE OMITTED. This clinical summary was aggregated from multiple sources. Caution should be exercised in using it in the provision of clinical care. This summary normalizes information from multiple sources, and as a consequence, information in this document may materially change the coding, format and clinical context of patient data. In addition, data may be omitted in some cases. CLINICAL DECISIONS SHOULD BE BASED ON THE PRIMARY CLINICAL RECORDS. [facility] provides no warranty or guarantee of the accuracy or completeness of information in this document.
--- NOTE | 2023-04-14 10:10 | HP.PCM_ITS ---
History and Physical Date of Admission: 04/14/23 Intake Vital Signs 02/20/2309:18 03/25/2312:49 Height 5 ft 6 in 5 ft 6 in Weight: 201 lb BMI 32.4 BP 107/74 Intake Visit Reasons: annual/preop BS Is patient in pain?: No Allergies Sulfa (Sulfonamide Antibiotics) Allergy (Intermediate, Verified 03/25/23 12:57) Hivesondansetron [From Zofran] Adverse Reaction (Verified 03/25/23 12:57) Nausea/Vom/Diarrhea Post menopausal: No Patient : No : No PFSH Medical History Anxiety Depression Fatigue Knee pain LGSIL (low grade squamous intraepithelial dysplasia) Low-lying placenta in second trimester neck/back pain Ovarian cyst Severe headache Short interval between pregnancies affecting , antepartum Shoulder pain Supervision of other normal unexplained bruises Family History Grandfather Cancer lymphomaAunt Cancer Pancreatic, brain cancerGrandmother Diabetes Hyperlipidemia [place] diseaseFather Heart disease Status post double vessel coronary artery bypass Social History household members: family number of children: 4 current occupational status: employed Smoking Status: Current every day smoker tobacco type: e-cigarettes alcohol intake: never substance use type: does not use caffeine: Yes what type of physical activity do you participate in: none frequency: 1-2 times per week seatbelt use: always do you feel safe at home: Yes History 5 Elective abortions Hx Para 3 Spontaneous abortions 1 Hx # Term Pregnancies Ectopic pregnancies Hx # Pregnancies Multiple births # of living children 3 Past Pregnancies Del. Date Name GA/Weeks Outcome Route Bth Weight Infant Gen Labor Lgth Anest hesia Del Locatn Provider FOB Unknown Corry 202012/01/13 Geena 42 live - full term 7lbs 6.5o z Female epidural 01/08/18 MILES 40 live - full term 9lbs Male epidural [facility] [place] ALEXA ABBIE 12/20/20 Lyam 38 live - full term 7lbs 3oz Male [address] [facility] [place] Maryjane Amrik Delivery Date: 12/20/20 Last Updated by: Sarah Krishna admitted active labor HPI annual/preop BS Details: MARTITA MOON is a 28 year old who presents for annual exam. She is also scheduled for a laparoscopic bilateral salpingectomy and colposcopy. Female Reproductive History Cycle Length: 21-35 Bleeding Duration: 5 Questions: metorrhagia: No, sexually active: Yes, dyspareunia: No and PCB: No Menopausal Symptoms: No hot flashes, No night sweats, No weight change, No mood changes, No difficulty concentrating, No sleep problems and No change in libido ROS Const Constitutional: Reports as per HPI; Denies fatigue, increased appetite, poor appetite, night sweats, weight gain or weight loss Cardio Card: Denies chest pain Resp Resp: Denies cough or dyspnea GI GI: Reports as per HPI; Denies abdominal pain, bloating, constipation, nausea or vomiting : Reports as per HPI and other; Denies difficulty voiding, dysuria, hematuria, hot flashes, nipple discharge, pelvic pain, prolapse symptoms, urinary frequency, urinary incontinence, urinary urgency, vaginal discharge, vaginal dryness, vaginal odor or vaginal pruritus Skin Skin/Breast: Denies changing lesions, breast mass, breast pain, breast skin changes or nipple discharge Psych Psych: Denies anxiety, change in libido, depression or difficulty concentrating Exam Const General: cooperative, healthy appearing, comfortable, no acute distress, well developed and well groomed HENPA Head: normal to inspection and normocephalic Ears: hearing grossly normal bilaterally and external ears normal Nose: external nose normal Face and sinus: normal facial exam Neck Neck: normal visual inspection, full ROM and no lymphadenopathy Thyroid: thyroid normal Chest Chest palpation & inspection: normal inspection of the chest Breast inspection: normal inspection of the breasts and normal inspection of the axillae Breast palpation: normal palpation of the breasts, normal palpation of the axil lae and no axillary lymphadenopathy Resp Effort & Inspection: normal respiratory effort GI Inspection: normal to inspection and non-distended Palpation: soft, no hepatosplenomegaly and no guarding General: bladder normal to palpation External Female Exam: normal external appearance, normal appearance of the urethra and no lesions Urethra: normal appearance of the urethra and normal palpation Speculum Exam - Vagina: normal appearance of the vagina and normal vaginal discharge Speculum Exam - Cervix: normal appearance of the cervix, no cervical discharge, no lesions and nontender Bimanual Exam- Vagina & Uterus: normal bimanual exam, uterine size normal, bladder normal to palpation, No tender, uterine mobility normal, consistency normal, non-tender and no cervical motion tenderness Bimanual Exam- Adnexa, other: normal adnexae, no masses and non-tender Skin General: no rashes or lesions noted Neuro General: patient alert, moves all extremities and no focal motor deficits Extrem General: normal to inspection and no pedal edema Psych Appearance: grossly normal Mental Status: mental status grossly normal Affect: normal affect Speech and Movement: speech and movement normal Attitude: cooperative Coding Level of Care Code Off vis,est,prev 18-39yrs Diagnoses Contraceptive management Z30.9 Well woman exam with routine gynecological exam Z01.419 Assessment and Plan Assessment and Plan (1) Contraceptive management: plan for laparoscopic bilateral salpingectomy Status: Acute (2) abnormal pap smear: plan for colposcopy under anesthesia
--- NOTE | 2023-04-14 10:22 | DCINST_ITS ---
Discharge Instructions Diet Discharge Diet: No restrictions Activity Discharge Activity: Return to Normal Activity, May Not Drive (for two weeks or while taking narcotic pain medications.), May Shower and May Take a Tub Bath (in 7 days) May resume sexual activity in: 1 week Weight Bearing Status: Full weight bearing Dressing / Incision Call your doctor if you observe: Using more than 1 pad per hour, Shortness of breath, Chest pain and Uncontrolled pain Suture Line Care: Avoid Pulling/Pushing and Avoid Pinching/Bending Remove Dressing in: 1 week (if present) Cleanse incision/area with: Soap & Water and Keep Dressing Clean & Dry Follow Up Care Please Follow Up With: Nettie Cortez DO When: Call to make an appointment with your doctor for a follow up incision check in 1-2 weeks. Test Results: Test results from this visit will be discussed in further detail at your follow- up appointment, if applicable. Discharge Plan Admission Primary Reason for Your Visit: laparoscopic bilateral salpingectomy, colposcopy Attending Provider: Nettie Cortez Primary Care Provider: Eusebio Morgan Discharge Orders/Prescriptions Prescriptions: New oxycodone-acetaminophen [Percocet] 5-325 mg tablet 1 tab PO Q4H PRN (Reason: pain) 7 Days Qty: 10 0RF Rx Instructions: 1-2 tabs q 4 hrs as needed for pain naproxen 500 mg tablet 500 mg PO BID PRN (Reason: pain) Qty: 20 0RF Referrals / Follow Up: Eusebio Morgan MD [Primary Care Provider] - Disposition Disposition (needs filled in before D/C Order can be placed): Home, Self Care
--- NOTE | 2023-04-14 10:25 | CER_PTH ---
PATHOLOGY RESULTS PATIENT: MARTITA MOON LOC: [facility] [place] U#:[id number] AGE/SX: 28/F ROOM: RE04/14/[address]: Dr. Nettie Cortez DO : 1995 BED: DIS: 04/14/2023 SPEC #: [id number] RECD: 04/14/23 11:48 STATUS: MARIANO MOIZ #: [id number] LIAT: 04/14/23 10:[address]: Nettie Cortez DEPT: SURGICAL PATHOLOGY RECD BY: Clarissa Langlye ENTERED: 04/14/23 12:19 SP TYPE: CERV OTHR DR: Dr. Eusebio Morgan MD Tissues: Fallopian tube Uterine cervix, NOS Endocervical Uterine cervix, NOS Procedures: Surgery Specimen Level IV HEADER OPERATION: Laparoscopic salpingectomy, colposcopy with cervical biopsy PRE-OP DIAGNOSIS: Desired sterilization, abnormal pap TISSUE SUBMITTED: A - Bilateral tubes, B - Cervical biopsy at 12 o'clock, C - Endocervical curettings and brush, D - Cervical biopsy at 3 o'clock MICROSCOPIC DIAGNOSIS A. Bilateral fallopian tubes, salpingectomy: Bilateral fallopian tubes with acuter inflammation. B. Cervix, 12 o'clock, biopsy: Focal changes consistent with HPV cytopathic effects. Moderate chronic inflammation. See comment. C. Endocervical curettings and brush: Fragments of benign endometrial tissue with focal glandular breakdown. Fragments of benign endocervical epithelium. D. Cervix, 3 o'clock, biopsy: Focal changes consistent with HPV cytopathic effects. Focal mild chronic inflammation. See comment. SJ:rg 04/15/2023 COMMENT B & D. Immunohistochemistry ([id number]) for surrogate HPV marker (p16) supports the above diagnosis. Case has been reviewed in consultation with Dr. Simpson who concurs with the above diagnosis. IDC:AM MICROSCOPIC DESCRIPTION Slides are reviewed. GROSS DESCRIPTION A - Received in fixative is one container labeled with the patient's name and designated bilateral fallopian tubes. The specimen consists of bilateral fallopian tubes including fimbrial ends measuring 7.0 cm in length and 0.8 cm in diameter and 6.0 cm in length and 0.8 cm in diameter. One of the fallopian tubes also shows a paratubal cyst measuring 0.7 cm in greatest dimension. It is filled with clear fluid. The fallopian tubes are not identified as right or left. Sections reveal unremarkable cut surfaces. Hand Stitcher sections are submitted in two cassettes as follows: 1 - one fallopian tube, 2 - second fallopian tube and paratubal cyst. B - Received in fixative is one container labeled with the patient's name and designated cervical biopsy at 12 o'clock. The specimen consists of one irregular fragment of light epstein soft tissue that measures 0.3 x 0.2 x 0.1 cm. The specimen is totally submitted in one cassette. C - Received is a metallic endoscopic cytobrush with adherent minute fragments of epstein-red tissue brush in formalin and labeled with the patient's name and and designated per the requisition as endocervical curettings brush . The material is dislodged from the brush and submitted for cytology preparation including cell block. D - Received in fixative is one container labeled with the patient's name and designated cervical biopsy at 3 o'clock. The specimen consists of one irregular fragment of light epstein soft tissue that measures 0.5 x 0.4 x 0.1 cm. The specimen is totally submitted in one cassette. / SJ:rg 04/14/2023 TC:5 CPT: 75153 x5
[2023-04-14] MEDS: Lactated Ringers 1,000 ML 15 ML IV (10:30)
[2023-04-14] MEDS: Bupivacaine 0.25% 30 ML Vial (10:56)
[2023-04-14] MEDS: FERRIC SUBSULFATE 8 GM SOLN (11:18)
--- NOTE | 2023-04-14 11:20 | OP.PCM_ITS ---
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 Bladder was drained of clear urine and SCDs were on preoperatively. Uterus was sounded and a uterine manipulator was placed after dilating. Attention was then paid to the abdominal portion of the procedure and the umbilicus was elevated and injected with Marcaine and after a 5 mm incision was made and a 5 mm trocar was inserted into the abdomen under direct visualization using the laparoscope. Abdomen was insufflated with CO2 gas and a 5 mm optical trocar was placed under direct visualization. A left lower quadrant 5 mm port and a mini grasper suprapubically were placed under direct visualization. [place]ifton abdulkadir was well visualized and bilateral fallopian tubes identified and bilateral tubes were elevated and transecting across the mesosalpinx and the attachment to the uterine corpus bilaterally the tubes were removed without complication. Excellent hemostasis was noted. Fallopian tubes were removed through the lower port sites without complication. Liver and upper abdomen were visualized notably within normal limits and no other gross abnormalities were seen in the abdomen. All instruments removed from the abdomen after gas was desufflated. Port sites were closed with 3-0 Monocryl Steri's and op sites were applied. Next, a bivalve speculum was placed in the vagina. 5% acetic acid solution was applied to the cervix. Colposcope was used with the green light to visualize the cervix. There was noted to be punctations at the 12 o'clock position and abnormal vasculature on the 3 o'clock position the remaining cervical anatomy looked normal. There were no masses or lesions. Patient is also on her menses as of note as this can change the appearance of the cervix slightly. Biopsies were taken at the 12 and 3 o'clock position passed off for pathology analysis and endocervical curettage was performed with a Pap brush and passed off for pathology analysis all instruments removed from the vagina and patient was awoken and taken recovery in stable condition. Admit VTE Documentation VTE Present on Admission: No VTE Mechan Device Prophylaxis: SCD's VTE Pharm Prophylaxis ordered?: No Multi Select Codes Urinary/Genital Urinary/Genital CPT Codes: 57627 Abercrombie + Bx + ECC and 36226 Laproscopic BS/O
[2023-04-14] MEDS: Acetaminophen 500 MG Tablet 1000 MG PO (12:48)
== END 2023-04-14 13:16 | disposition home or self-care (01) ==
LOC: SDC 08:59 → AC 09:00
PROVIDERS: Anesthesiology; PCP Family Medicine; Referring Provider Obstetrics & Gynecology; Visit Provider Obstetrics & Gynecology
PROC: (CPT 58661; principal; 2023-04-14 10:10)
DX: Z30.2 Encounter for sterilization (principal); R87.610 Atypical squamous cells of undetermined significance on cytologic smear of cervix (ASC-US); R87.810 Cervical high risk human papillomavirus (HPV) DNA test positive; N70.03 Acute salpingitis and oophoritis; N72 Inflammatory disease of cervix uteri; F17.290 Nicotine dependence, other tobacco product, uncomplicated
CPT/HCPCS: 58661; 57455; 58110; 00840; 88302; 81025; 85027; 86850; 86900; 86901; 88305; 88341; 88342; J7120

== ENCOUNTER → 2024-04-11 | Outpatient (CLI) | payer MEDICAID, SELFPAY ==
[2024-04-14 10:09] LABS: HPV APTIMA, High Risk Negative (Negative)
== END | disposition home or self-care (01) ==
LOC: LABSPEC 12:14
PROVIDERS: PCP Family Medicine; Referring Provider Nurse Practitioner Family; Visit Provider Nurse Practitioner Family
DX: R87.610 Atypical squamous cells of undetermined significance on cytologic smear of cervix (ASC-US) (principal)
CPT/HCPCS: 87624; 88175; G0145